=== PATIENT | male | born 1990 | race Caucasian/White ===

== ENCOUNTER → 2020-01-13 | Outpatient (CLI) | payer OTHER, SELFPAY | END | disposition home or self-care (01) | LOC: LABSPEC 15:43 | PROVIDERS: Referring Provider Otolaryngology Otolaryngology/Facial Plastic Surgery; Visit Provider Otolaryngology Otolaryngology/Facial Plastic Surgery | DX: J02.9 Acute pharyngitis, unspecified (principal) | CPT/HCPCS: 87070 ==

== ENCOUNTER 2020-03-11 11:37 | Emergency (ER) | payer OTHER, SELFPAY ==
[2020-03-11 11:38] VITALS: BP 167/119; PULSE 123; RESP 15; TEMP 36.3; O2SAT 100; BMI 41.3
[2020-03-11 11:40] VITALS: BP 167/119; PULSE 120; RESP 16; TEMP 36.3; O2SAT 100
--- NOTE | 2020-03-11 12:06 | ED.DCSUM_ITS ---
History of Present Illness Informant: Patient, Family Onset: Month(s) - 3 months Context: Gradual Onset Timing: Continuous Quality: sharp Location: throat Current Severity: Moderate Maximum Severity: Moderate Worsened by: eating/drinking Relieved by: nothing Associated Symptoms: sinus pain Prior similar symptoms: Yes Recent Illness/Hospitalization: No <Abdoul Desai - Last Filed: 03/11/20 12:59> <Edson Slater - Last Filed: 03/11/20 13:48> Chief Complaint: Sore Throat Past Medical History Prior records reviewed: Yes Past Medical History: None Surgical History: no surgical history Lives: With Family Smoking Status: Former smoker Alcohol: None Drugs: None <Abdoul Desai - Last Filed: 03/11/20 12:59> <Edson Slater - Last Filed: 03/11/20 13:48> - Allergies and Home Meds Allergies/Adverse Reactions: Allergies No Known Allergies Allergy (Verified 03/11/20 11:40) Primary Care Physician: Wyatt Benoit MD [STAFF PHYSICIAN] - Review of Systems All systems negative except as indicated General: Denies: Chills, Fever, Sweats Eyes: Denies: Visual changes - bilaterally, Diplopia ENT: Reports: Bilateral ear pain, Sore throat. Denies: Rhinorrhea Cardiovascular: Denies: Chest pain, Palpitations, Heart racing Respiratory: Denies: Dyspnea, Cough, Sputum, Dyspnea on exertion, Orthopnea, Paroxysmal nocturnal dyspnea Gastrointestinal: Denies: Abdominal pain, Nausea, Vomiting, Diarrhea, Constipation, Melena, Hematochezia Genitourinary: Denies: Dysuria, Hematuria, Frequency Musculoskeletal: Denies: Myalgias, Arthralgias, Neck pain, Back pain, Swelling, Extremity Pain Skin: Denies: Rash, Wounds Neurological: Denies: Headache, Weakness, Numbness <Abdoul Desai - Last Filed: 03/11/20 12:59> Physical Exam Vital Signs/Narrative: Vital Signs Temp Pulse Resp BP Pulse Ox 03/11/20 11:40 97.3 F L 120 H 16 167/119 H 100 03/11/20 11:38 97.3 F L 123 H 15 167/119 H 100 Inital Vital Signs reviewed: Yes General: Well nourished, Well developed, Obese, No Acute Distress Head: Normocephalic, Atraumatic. Negative for: Trauma Eyes: Perrl, EOMI ENT: Moist mucous membranes, TM's clear, Nasal congestion, Sinus tenderness Neck: Supple, Nontender, No lymphadenopathy, No JVD Cardiovascular: Regular rate, Regular rhythm, No murmurs Respiratory: No distress, CTA bilaterally, Chest nontender Abdomen: Soft, Nontender, Nondistended, Normal bowel sounds Back: Nontender, Normal Inspection. Negative for: CVA tenderness, Spinal tenderness Extremities: Nontender, No edema. Negative for: Tenderness, Edema Skin: Normal color, No rash Neurological: Alert, Oriented x3, Cranial nerves II-XII grossly intact, Normal Strength, Normal Sensation, Normal Gait Psychological: Normal affect, Normal Mood <Abdoul Desai - Last Filed: 03/11/20 12:59> Vital Signs/Narrative: Vital Signs Temp Pulse Resp BP Pulse Ox 03/11/20 11:40 97.3 F L 120 H 16 167/119 H 100 03/11/20 11:38 97.3 F L 123 H 15 167/119 H 100 <Edson Slater - Last Filed: 03/11/20 13:48> Diagnostic/Tx/Re-eval - Medical Decision Making Rapid strep is negative. Patient has no signs of meningitis he is well- appearing no sign of peritonsillar abscess voice is normal will be discharged home with Augmentin for sinus infection and he will follow-up with his primary care physician <Abdoul Desai - Last Filed: 03/11/20 12:59> - Medical Decision Making Attending note: I saw the patient independently. Patient presents with sore throat. Pain worse on the right. HEENT exam shows mildly erythematous and swollen uvula, otherwise unremarkable. Good range of motion. No abscess. Airway intact. Lungs clear. HEENT normal. Pharyngitis Patient has what sounds like sleep apnea. I believe he snores and this is irritating his uvula. Nothing to suggest angioedema, abscess or other infection, airway compromise. Strep was negative. Will treat with Decadron and antibiotics as he has had ongoing sinus symptoms. Follow-up with outpatient care. <Edson Slater - Last Filed: 03/11/20 13:48> ED Disposition <Abdoul Desai - Last Filed: 03/11/20 12:59> <Edson Slater - Last Filed: 03/11/20 13:48> - Plan for ED Patient: Disposition: Home or Assisted Living Diagnosis: Sinusitis Instructions: ED Sinusitis Antibiotic Treatment Prescriptions: Amox/Clavulanate Tablet [Augmentin Tablet] 875 mg PO Q12H #20 tab Prescription Printed Levocetirizine Dihydrochloride [Xyzal] 5 mg PO DAILY #30 tab Prescription Printed Referrals: Wyatt Benoit MD [STAFF PHYSICIAN] -
--- NOTE | 2020-03-11 13:17 | ED.RN ---
DISCHARGE INSTRUCTIONS GIVEN TO AND REVIEWED WITH PATIENT, PATIENT DENIES QUESTIONS OR CONCERNS AND VOICES UNDERSTANDING OF DISCHARGE INSTRUCTIONS. PT AMBULATES OUT OF ROOM WITHOUT DIFFICULTY.
== END 2020-03-11 13:17 | disposition home or self-care (01) ==
PROVIDERS: Emergency Provider Physician Assistant Medical
DX: J32.9 Chronic sinusitis, unspecified (principal); E66.9 Obesity, unspecified; Z68.41 Body mass index [BMI] 40.0-44.9, adult; Z87.891 Personal history of nicotine dependence
CPT/HCPCS: 87077; 87880; 99281

== ENCOUNTER 2020-09-09 07:27 | Emergency (ER) | payer OTHER, SELFPAY ==
[2020-09-09 07:28] VITALS: BP 157/109; PULSE 76; RESP 16; TEMP 36.2; O2SAT 100; BMI 40.1
--- NOTE | 2020-09-09 07:41 | ED.VIS.GI ---
History of Present Illness Chief Complaint: Abd Pain Informant: Patient, Significant Other - Abdominal Pain/Flank Pain Onset: Today, Hours Context: Sudden Onset Timing: Continuous Quality: Aching, Cramping Location: Epigastric, LUQ Current Severity: Moderate Maximum Severity: Severe Worsened by: Not Worsened By: Car ride, Food, Movement Relieved by: Antacids - Improved slightly - Nausea/Vomiting/Emesis GI Symptom: Nausea, Vomiting, - - Onset 0500 Onset: Hours Quality: Negative for: Nonbilious, Blood streaks, Coffee ground, Hematemesis Severity: Moderate - Diarrhea/Melena/Hematochezia GI Symptom: Diarrhea. Negative for: Melena, Hematochezia Onset: Hours Stool Quality: Loose, Watery. Negative for: Black, Maroon, HARINDER per rectum Severity: Severe Associated Symptoms: Negative for: Dysuria, Frequency, Hematuria, Urgency Narrative: Patient is a 30-year-old male with history of hypertension on lisinopril who presents with epigastric left upper quadrant abdominal pain that started prior to 0500. This was followed by one episode of vomiting. He did take Pepto-Bismol and Maalox with no improvement. He did have one episode of vomiting and did not note blood or coffee grounds. He states there is a small area that was dark. He reports profuse watery diarrhea. He denies any ill contacts. He states he had similar episode 1 month ago. Etiology was unknown. He did not seek medical attention. He denies fever, chills night sweats. He denies headache ocular, visual auditory symptoms. Denies neck pain or neck stiffness. He does report nasal congestion that started several days ago. He denies chest discomfort. He denies shortness of breath. He denies rash. He does report lightheadedness with standing. He states his sister is status post cholecystectomy. He is not aware of any other family members with biliary disease. Prior similar symptoms: Yes - 1 month ago Recent Illness/Hospitalization: No Past Medical History - Allergies and Home Meds Allergies/Adverse Reactions: Allergies No Known Allergies Allergy (Verified 03/11/20 11:40) Primary Care Physician: Deborah Lester PA [NON-STAFF] - Prior records reviewed: Yes - Hypertension Surgical History: no surgical history Lives: Spouse/ Significant Other, With Family Smoking Status: Never smoker Alcohol: Rare Drugs: None Review of Systems General: Reports: Malaise. Denies: Chills, Fever, Subjective Eyes: Denies: Visual changes - bilaterally, Blurred Vision - bilaterally ENT: Reports: Rhinorrhea. Denies: Bilateral ear pain, Sore throat Cardiovascular: Denies: Chest pain, Palpitations Respiratory: Denies: Dyspnea, Cough, Sputum, Dyspnea on exertion Gastrointestinal: Reports: Abdominal pain, Nausea, Vomiting, Diarrhea. Denies: Melena, Hematochezia Genitourinary: Denies: Dysuria, Hematuria, Frequency Musculoskeletal: Denies: Myalgias, Arthralgias, Neck pain, Back pain, Swelling, Extremity Pain, -, - Skin: Denies: Rash, Wounds Neurological: Denies: Headache Endocrine: Denies: Polyuria, Polydipsia, Heat intolerance Allergy: Denies: Uticaria Physical Exam Vital Signs/Narrative: Vital Signs Temp Pulse Resp BP Pulse Ox 09/09/20 07:28 97.1 F L 76 16 157/109 H 100 Inital Vital Signs reviewed: Yes General: Well nourished, Well developed, Acute Distress - Patient does not appear well. He appears pale. He appears uncomfortable. He does admit to abdominal distention. Head: Normocephalic, Atraumatic Eyes: Perrl, EOMI. Negative for: Pale conjunctiva, Scleral icterus ENT: No rhinorrhea, Dry mucous membranes. Negative for: Moist mucous membranes Neck: Supple, Nontender, No lymphadenopathy, No JVD Cardiovascular: Regular rate, Regular rhythm, No murmurs, Normal S1, Normal S2 Respiratory: No distress, CTA bilaterally, Chest nontender Abdomen: Soft, No masses, Tender, Guarding, Hypoactive bowel sounds. Negative for: Nontender, Nondistended, Normal bowel sounds, Rebound tenderness, Hepatomegaly, Splenomegaly, Mass, Pulsatile mass, Glover's sign Back: Nontender Extremities: Nontender, No edema. Negative for: Tenderness Skin: No rash, No Trauma, Pallor. Negative for: Normal color, Cyanosis, Diaphoresis, Jaundice Neurological: Alert, Oriented x3, Cranial nerves II-XII grossly intact, Normal Strength, Normal Sensation, Normal Gait Psychological: Normal affect Diagnostic/Tx/Re-eval Impressions Abdomen/Pelvis CT 09/09/20 09:23 IMPRESSION: A few air-fluid levels within the colon may represent a pattern of possible enterocolitis. No obstruction. No appendicitis. No hydronephrosis. Electronically Signed: Emily Schuster MD at 12:04 EDT Tel , Service support , 09/09/20 09:23 Abdomen/Pelvis WITH Contrast [CT] Stat Laboratory Results 09/09/20 09/09/20 07:45 07:45 WBC 9.5 RBC 5.32 Hgb 15.4 Hct 46.0 MCV 86.5 MCH 28.9 MCHC 33.5 RDW Std Deviation 40.4 RDW Coeff of Meño 13.0 Plt Count 400 MPV 8.9 Immature Gran % (Auto) 0.500 Neut % (Auto) 65.9 Lymph % (Auto) 25.3 [place] % (Auto) 7.3 Eos % (Auto) 0.2 Baso % (Auto) 0.8 Absolute Neuts (auto) 6.2 Absolute Lymphs (auto) 2.40 Nucleated RBC % 0 Sodium 133 L Potassium 4.4 Chloride 100 Carbon Dioxide 24.0 Anion Gap 9 BUN 15 Creatinine 1.00 Estim Creat Clear Calc 107.03 Est GFR (MDRD) Af Amer 112 Est GFR (MDRD) Non-Af 92 BUN/Creatinine Ratio 15.0 Glucose 168 H Calcium 9.3 Total Bilirubin 0.60 AST 14 L ALT 63 H Alkaline Phosphatase 67 Total Protein 7.9 Albumin 3.8 Globulin 4.1 Albumin/Globulin Ratio 0.9 Lipase 135 Blood work was marked for slight elevation in glucose. CAT scan is unremarkable. Patient was made aware of his results. He no longer appears pale. He still feels nauseous. Will order Bentyl at this time and reevaluate. I was informed that 1335 patient states his nausea improved with Bentyl. Still having discomfort. Will discharge to home with appropriate medication and home-going instructions. - Medical Decision Making Patient presents with nausea, vomiting diarrhea which may represent a viral illness, biliary disease, doubt food poisoning since no one else is ill and does not describe rancid 10 E. 2 food consumed last evening. Because he is 29 years old with history of hypertension on MADHAVI inhibitor BMP was obtained to assess renal function and electrolytes. CBC to assess white count as well as hepatic panel and lipase to evaluate for biliary disease and or pancreatitis. Patient was reassessed at 0822. He still appears pale and does not appear well. He states he is no better. He was informed of his laboratory results. A liter of normal saline was ordered an additional dose of Zofran and morphine was ordered. Will reevaluate if he still having significant discomfort with no improvement will obtain CT of the abdomen and pelvis. Patient was reassessed at 0920. He still appears uncomfortable and pale with tenderness in the right and left upper quadrant. CT of the abdomen pelvis with p.o. and IV contrast was ordered to evaluate for colitis versus inflammatory bowel disorder versus other cause. I was informed patient began to vomit. This was prior to the administration of p.o. contrast. A verbal order was given for 5 mg of Reglan IV push. Patient was reassessed at 1100. He still appears very uncomfortable. He is pacing. 0.5 mg of Dilaudid was ordered. ED Disposition - Plan for ED Patient: Disposition: Home or Assisted Living Diagnosis: Abdominal pain, vomiting, and diarrhea, Mild dehydration Instructions: ED Vomiting and Diarrhea ... Prescriptions: Dicyclomine HCl [Bentyl] 20 mg PO TIDAC #10 capsule Transmission Status: Pending to [id number] Hydrocodone Bitart/Apap 5-325 [[place] 5MG-325MG] 1 tablet PO Q6H PRN PRN 3 Days #10 tablet PRN Reason: Pain Transmission Status: Received by [id number] Ondansetron [Zofran Odt] 4 mg PO Q8H PRN PRN #10 tablet PRN Reason: Nausea Transmission Status: Pending to [id number] Referrals: Deborah Lester PA [NON-STAFF] - 1-2 Days if not improving
[2020-09-09] MEDS: Morphine 4 MG/ML Syringe IV ×2 (07:46→08:30)
[2020-09-09] MEDS: Ondansetron 4 MG/2 ML Vial IV ×2 (07:47→08:30)
[2020-09-09 07:55] LABS: Absolute Neutrophil Count 6.2 X10^3/uL (2.0-7.7); Basophil# 0.08 X10^3/uL; Basophil% 0.8 % (0-1); Eosinophil# 0.02 X10^3/uL; Eosinophils% 0.2 % (0-5); Hemoglobin 15.4 g/dL (13.0-16.5); Lymphocyte % 25.3 % (19-41); Mean Corp Hgb Conc 33.5 g/dL (32-36); Mean Corpuscular Hgb 28.9 pg (27.0-32.0); Mean Corpuscular Volume 86.5 fL (80-94); Mean Platelet Vol. 8.9 fl (6.2-12.0); Monocyte# 0.69 X10^3/uL; Monocyte% 7.3 % (0-10); NRBC Flagged by Analyzer 0 % (0-5); Neutrophil # 6.24 X10^3/uL (2.7-7.7); Neutrophil % 65.9 % (47-70); Platelet Count 400 K/mm3 (150-450); RBC Distribution Width SD 40.4 fl (35.1-43.9); Red Blood Count 5.32 M/mm3 (4.6-6.2); White Blood Count 9.5 K/mm3 (4.4-11.0)
[2020-09-09 08:10] LABS: ALB/GLOB Ratio 0.9 RATIO (0.9-2.4); AST(SGOT) 14 U/L (15-37); Alanine Aminotransfer ALT/SGPT 63 U/L (16-61); Albumin, Serum 3.8 g/dL (3.2-5.0); Alkaline Phosphatase 67 U/L (45-117); Anion Gap 9 (5-15); BUN 15 mg/dL (7-18); Calcium,Total 9.3 mg/dL (8.5-10.1); Chloride 100 mmol/L (98-107); EST Glomerular Filtration Rate 92 mL/min (>60); Est Glom Filt Rate - Afr Amer 112 mL/min (>60); Estimated Creatinine Clearance 107.03 ml/min; Globulin 4.1 g/dL (2.2-4.2); Glucose 168 mg/dL (74-106); Lipase 135 U/L (73-393); Potassium 4.4 mmol/L (3.5-5.1); Protein, Total 7.9 g/dL (6.4-8.2); Sodium Level 133 mmol/L (136-145)
[2020-09-09 08:30] VITALS: BP 154/94; PULSE 64; RESP 16
[2020-09-09] MEDS: 0.9% Normal Saline 1,000 ML 1000 ML IV (08:30)
--- NOTE | 2020-09-09 09:23 | CT_ITS ---
STUDY: CT ABDOMEN AND PELVIS WITH CONTRAST REASON FOR EXAM: Male, 30 years old. Bilateral upper abdominal pain with N/V/D -- IV PO Contrast RADIATION DOSAGE (If Supplied By Facility): CTDIvol = ( 15.41 ) mGy, DLP = ( 1314.15 ) mGycm TECHNIQUE: Transaxial images were obtained from the dome of the diaphragm to the symphysis pubis with oral contrast. Oral ; IV Gastrografin and 100mL Isovue-300 was administered. Sagittal and coronal images were reconstructed. Individualized dose optimization techniques were used for this CT. COMPARISON: None. FINDINGS: The visualized lung bases are unremarkable. The visualized portions of the heart are within normal limits. There is decreased attenuation of the liver consistent with steatosis. Normal gallbladder and extrahepatic biliary system. Normal spleen. Normal pancreas. Normal bilateral adrenal glands. Normal right kidney. Normal left kidney. Normal visualized stomach. There is contrast in normal-caliber loops of small bowel. There. Air-fluid levels within the mostly decompressed colon. There are a few diverticula present without visualized diverticulitis. The appendix is visualized and appears normal. Normal abdominal aorta. Normal inferior vena cava. Normal retroperitoneum. Normal urinary bladder. Normal visualized prostate gland. There is a small umbilical hernia containing fat. There are diffuse degenerative changes of the visualized thoracolumbar junction. 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 There is a Schmorl''s node at the level of L4. CT/Abdomen/Pelvis WITH Contrast IMPRESSION: A few air-fluid levels within the colon may represent a pattern of possible enterocolitis. No obstruction. No appendicitis. No hydronephrosis. Electronically Signed: Emily Schuster MD at 12:04 EDT Tel , Service support ,
[2020-09-09] MEDS: Metoclopramide 10 MG/2 ML Vial 5 MG IV (09:35)
[2020-09-09 11:00] VITALS: BP 149/75; PULSE 65; RESP 16
[2020-09-09] MEDS: HYDROmorphone 0.5 MG/0.5 ML SYRINGE IV (11:14)
[2020-09-09] MEDS: Dicyclomine 10 MG Capsule 20 MG PO (12:38)
[2020-09-09 13:00] VITALS: BP 140/85; PULSE 66; RESP 16; O2SAT 97
[2020-09-09] MEDS: Famotidine 200 MG/20 ML MDV 20 MG in 0.9% Normal Saline (Pres. free 8 ML 300 MG IV (14:07)
[2020-09-09] MEDS: Mag Hydrox/Al Hydrox/Simeth 30 ML UDC PO (14:07)
--- NOTE | 2020-09-09 15:00 | ED.VISSUMM ---
- ER Visit Summary Date of Service: 09/09/20 Chief Complaint: [] History of Present Illness: The patient is a 30 M [] Physical Examination: [] Test Results: [] Emergency Department Course and Treatment: [] Treatment Plan: [] Disposition: [] Impression: [] This note was generated with [employer] dictation software. It may contain incorrect words, spelling, and punctuation that were not noted in review of the chart prior to signing ED Disposition - Plan for ED Patient: Disposition: Home or Assisted Living Diagnosis: Abdominal pain, vomiting, and diarrhea, Mild dehydration Instructions: ED Vomiting and Diarrhea ... Prescriptions: Dicyclomine HCl [Bentyl] 20 mg PO TIDAC #10 capsule Prescription Printed Hydrocodone Bitart/Apap 5-325 [[place] 5MG-325MG] 1 tablet PO Q6H PRN PRN 3 Days #10 tab PRN Reason: Pain Prescription Printed Ondansetron [Zofran Odt] 4 mg PO Q8H PRN PRN #10 tablet PRN Reason: Nausea Prescription Printed Referrals: Deborah Lester PA [NON-STAFF] - 1-2 Days if not improving
[2020-09-09 15:05] VITALS: BP 156/91; PULSE 98; RESP 16; O2SAT 100
[2020-09-13 17:17] LABS: C1 Esterase Inhibitor, Quant 22 mg/dL (21-39)
== END 2020-09-09 15:07 | disposition home or self-care (01) ==
PROVIDERS: Emergency Provider Emergency Medicine
DX: R10.13 Epigastric pain (principal); R10.11 Right upper quadrant pain; R10.12 Left upper quadrant pain; R11.2 Nausea with vomiting, unspecified; R19.7 Diarrhea, unspecified; E86.0 Dehydration; I10 Essential (primary) hypertension; Z79.899 Other long term (current) drug therapy; Z83.79 Family history of other diseases of the digestive system
CPT/HCPCS: 74177; 80053; 83690; 85025; 86160; 86161; 96361; 96374; 96375; 96376; 99284; J7030; Q9967; A4216; J2405; J3490

== ENCOUNTER 2020-11-02 14:07 | Emergency (ER) | payer OTHER, SELFPAY ==
[2020-11-02 14:07] VITALS: BP 143/82; PULSE 83; RESP 14; TEMP 36.9; O2SAT 95; BMI 37.4
--- NOTE | 2020-11-02 14:20 | ED.VIS.GI ---
HPI HPI - GI History of Present Illness Chief Complaint: Nausea/Vomiting Informant: patient Abdominal Pain/Flank Pain Onset: Yesterday Context: Sudden Onset Timing: Continuous Quality: Burning Location: Epigastric, RUQ and LUQ Maximum Severity: 9/10 Worsened by: - (Lying and sitting) Relieved by: - (Standing) Nausea/Vomiting/Emesis GI Symptom: Positive for Nausea and Vomiting Onset: Yesterday Quality: Negative for Coffee ground and Hematemesis Episodes: 12 Diarrhea/Melena/Hematochezia GI Symptom: Negative for Diarrhea, Melena and Hematochezia Associated Symptoms Associated Symptoms: Negative for Dysuria and Hematuria Narrative Narrative: Patient presents with nausea and vomiting that began yesterday. Patient states he has had a similar episode approximately 2 months ago and was seen here in the emergency department at that time. Patient states that they never found what was wrong. Patient never followed up with his primary care physician after this. Patient denies any hematemesis or coffee-ground emesis. Patient states his emesis is stomach contents. Patient describes his pain as burning. Patient states pain is over the epigastric area and upper abdomen. Patient denies any radiation of the pain. Patient denies any diarrhea, melena, or hematochezia. Patient denies any dysuria or hematuria. Patient also admits to some pain in his right lower chest. Patient states he felt like he pulled something while he was vomiting one time. [facility] Medical History (Updated 11/02/20 @ 19:[address] Cuco Sanabria DO) Hypertension Home Medications lisinopril 40 mg PO DAILY 09/09/20 [History Last Taken Unknown] omeprazole 20 mg PO DAILY #30 capsule 11/02/20 [Rx Last Taken Unknown] Allergy/AdvReac Type Severity Reaction Status Date / Time No Known Allergies Allergy Verified 11/02/20 14:09 no surgical history Social History Smoking Status: Never smoker ROS ROS ED Constitutional Constitutional ED: Denies chills or fever(s) Eyes Eyes: Denies blurry vision or change in vision ENT ENT ED: Denies rhinorrhea or sore throat Cardiovascular Cardiovascular: Reports chest pain; Denies palpitations Respiratory/Chest Respiratory/Chest: Denies cough or dyspnea Gastrointestinal Gastrointestinal: Reports abdominal pain, nausea and vomiting; Denies diarrhea Genitourinary Genitourinary ED: Denies dysuria or hematuria Musculoskeletal Musculoskeletal: Denies back pain or neck pain Integumentary Denies abscess or rash Neurologic Neurologic: Denies headache(s) or weakness Allergic/Immunologic Allergic/Immunologic ED: Denies mouth swelling or urticaria EXAM Physical Exam Const Vital Signs: 11/02/20 14:07 11/02/20 16:07 11/02/20 18:00 Temperature 98.4 F Temperature Source Temporal Pulse Rate 83 69 71 Respiratory Rate 14 18 18 Blood Pressure 143/82 H 147/88 H 145/82 H Blood Pressure Mean 102 107 103 Pulse Ox 95 98 98 Oxygen Delivery Method Room Air Room Air Room Air Positive well nourished, well developed and obese General Appearance ED: well developed Nutritional Appearance: obese HEENT Reports moist mucous membranes Neck supple and no JVD Resp normal respiratory effort and clear to auscultation bilaterally Cardio regular rate and regular rhythm GI non-distended Auscultation: normoactive bowel sounds Palpation: soft and tender epigastric; Negative for guarding or rebound tenderness present Extremity full ROM General Extremety ED: Negative for edema General Extremity: Negative for edema Neuro CN's II-XII intact bilaterally, moves all extremities and no sensory deficits noted Sensorium / Orientation: alert, oriented to person, oriented to place and oriented to time Psych mental status grossly normal MDM MDM MDM Narrative Medical decision making narrative: Patient was given morphine and Zofran initially. CBC and comprehensive metabolic profile were within normal limits. Lipase was normal. Patient states he has had no improvement in his pain. Patient was given a repeat dose of morphine and Zofran. On reevaluation, patient states he feels worse now than when he came in. CT scan of the abdomen pelvis was ordered. Patient was given a dose of Bentyl. CT scan does not show any acute intra-abdominal process. Patient was requesting a GI cocktail. This was ordered. Patient was also given a repeat dose of morphine. Patient was given a prescription for Prilosec. Patient was instructed to follow-up with his primary care physician in 3 to 5 days. Patient understood and was agreeable with the plan. All questions were answered. Lab Data Attestation: I reviewed the patient's lab results. Labs: Laboratory Results - last 24 hr 11/02/20 11/02/20 14:51 14:51 WBC 10.7 RBC 5.42 Hgb 15.7 Hct 46.8 MCV 86.3 MCH 29.0 MCHC 33.5 RDW Std Deviation 40.0 RDW Coeff of Meño 12.9 Plt Count 412 MPV 8.9 Immature Gran % (Auto) 0.600 Neut % (Auto) 67.9 Lymph % (Auto) 22.1 [place] % (Auto) 8.5 Eos % (Auto) 0.2 Baso % (Auto) 0.7 Absolute Neuts (auto) 7.3 Absolute Lymphs (auto) 2.36 Nucleated RBC % 0 Sodium 139 Potassium 4.0 Chloride 107 Carbon Dioxide 24.0 Anion Gap 8 BUN 12 Creatinine 1.11 Estim Creat Clear Calc 96.43 Est GFR (MDRD) Af Amer 99 Est GFR (MDRD) Non-Af 82 BUN/Creatinine Ratio 10.8 Glucose 138 H Calcium 10.0 Total Bilirubin 0.60 AST 14 L ALT 47 Alkaline Phosphatase 69 Total Protein 8.3 H Albumin 3.8 Globulin 4.5 H Albumin/Globulin Ratio 0.8 L Lipase 121 Radiography Diagnostic Testing: Radiology Impression Abdomen/Pelvis CT 11/02/20 17:58 IMPRESSION: No definite acute or significant abnormality seen. Electronically Signed: Hany Hernandez MD at 19:00 EDT , Service support , Discharge Plan Triage Chief Complaint: Nausea/Vomiting ED Provider: Cuco Sanabria Dx/Rx/DC Orders Clinical Impression: Abdominal pain of unknown etiology Instructions: ED Gastritis (Adult), ED Epigastric Pain (Uncertain Cause), ED Unknown Causes of Abdominal ... Prescriptions: New omeprazole [omeprazole] 20 MG capsule 20 mg PO DAILY Qty: 30 RF: 0 No Action lisinopril 40 MG tablet 40 mg PO DAILY RF: 0 Primary Care Provider: Care Physician,No Primary Referrals: Abbie Chavez MD [STAFF PHYSICIAN] - 3-5 Days Care Physician,No Primary [Primary Care Provider] - Disposition Disposition: Home, self care
[2020-11-02] MEDS: 0.9% Normal Saline 1,000 ML 1000 ML IV (14:50)
[2020-11-02] MEDS: Ondansetron 4 MG/2 ML Vial IV ×2 (14:50→16:20)
[2020-11-02 15:02] LABS: Absolute Lymphocyte Count 2.36 X10^3/uL (0.83-4.51); Absolute Neutrophil Count 7.3 X10^3/uL (2.0-7.7); Basophil# 0.08 X10^3/uL; Basophil% 0.7 % (0-1); Eosinophil# 0.02 X10^3/uL; Eosinophils% 0.2 % (0-5); Hematocrit 46.8 % (40-54); Hemoglobin 15.7 g/dL (13.0-16.5); Lymphocyte # 2.36 X10^3/ul (0.83-4.51); Lymphocyte % 22.1 % (19-41); Mean Corp Hgb Conc 33.5 g/dL (32-36); Mean Corpuscular Volume 86.3 fL (80-94); Mean Platelet Vol. 8.9 fl (6.2-12.0); Monocyte# 0.91 X10^3/uL; Monocyte% 8.5 % (0-10); NRBC Flagged by Analyzer 0 % (0-5); Neutrophil # 7.25 X10^3/uL (2.7-7.7); Neutrophil % 67.9 % (47-70); Platelet Count 412 K/mm3 (150-450); RBC Distribution Width CV 12.9 % (11.6-14.6); Red Blood Count 5.42 M/mm3 (4.6-6.2); White Blood Count 10.7 K/mm3 (4.4-11.0)
[2020-11-02] MEDS: Morphine 4 MG/ML Syringe IV ×2 (15:09→16:20)
[2020-11-02 15:15] LABS: ALB/GLOB Ratio 0.8 RATIO (0.9-2.4); AST(SGOT) 14 U/L (15-37); Alanine Aminotransfer ALT/SGPT 47 U/L (16-61); Albumin, Serum 3.8 g/dL (3.2-5.0); Alkaline Phosphatase 69 U/L (45-117); Anion Gap 8 (5-15); BUN 12 mg/dL (7-18); BUN/Creat Ratio 10.8 RATIO (10-20); Chloride 107 mmol/L (98-107); Creatinine, Serum 1.11 mg/dL (0.70-1.30); EST Glomerular Filtration Rate 82 mL/min (>60); Est Glom Filt Rate - Afr Amer 99 mL/min (>60); Estimated Creatinine Clearance 96.43 ml/min; Globulin 4.5 g/dL (2.2-4.2); Glucose 138 mg/dL (74-106); Lipase 121 U/L (73-393); Protein, Total 8.3 g/dL (6.4-8.2); Sodium Level 139 mmol/L (136-145)
[2020-11-02 16:07] VITALS: BP 147/88; PULSE 69; RESP 18; O2SAT 98
--- NOTE | 2020-11-02 17:58 | CT_ITS ---
STUDY: CT ABDOMEN AND PELVIS WITHOUT CONTRAST REASON FOR EXAM: Male, 30 years old. Pain RADIATION DOSAGE (If Supplied By Facility): CTDIvol = ( 22.64 ) mGy, DLP = ( 1227.37 ) mGycm TECHNIQUE: Transaxial images were obtained from the dome of the diaphragm to the symphysis pubis without oral contrast, and without intravenous contrast. Sagittal and coronal images were reconstructed. Individualized dose optimization techniques were used for this CT. COMPARISON: 09/09/2020. FINDINGS: The visualized lung bases are unremarkable. The visualized portions of the heart are within normal limits. Normal liver. Normal gallbladder and extrahepatic biliary system. Normal spleen. Normal pancreas. Normal bilateral adrenal glands. Normal right kidney. Normal left kidney. No definite renal or ureteral stones are seen. There is no hydronephrosis on either side. Evaluation of the GI tract is limited by absence of oral contrast. Cannot exclude stomach wall thickening. No dilated loops of bowel or evidence for obstruction. Cannot exclude segmental thickening of the cross of the small or large bowel. Cannot exclude enteritis or colitis. Moderate diffuse fecal retention. Appendix within normal limits. Normal abdominal aorta. Normal inferior vena cava. Normal retroperitoneum. Normal urinary bladder. Normal abdominal wall. Normal osseous structures. CT/Abdomen/Pelvis without Cont IMPRESSION: No definite acute or significant abnormality seen. Electronically Signed: Hany Hernandez MD at 19:00 EDT , Service support ,
[2020-11-02 18:00] VITALS: BP 145/82; PULSE 71; RESP 18; O2SAT 98
[2020-11-02] MEDS: Dicyclomine 20 MG/2 ML Vial IM (18:08)
[2020-11-02] MEDS: Morphine 2 MG/ML Syringe IV (19:20)
[2020-11-02] MEDS: Mag Hydrox/Al Hydrox/Simeth 30 ML UDC PO (19:20)
== END 2020-11-02 19:27 | disposition home or self-care (01) ==
PROVIDERS: Emergency Provider Emergency Medicine
DX: R10.9 Unspecified abdominal pain (principal); I10 Essential (primary) hypertension; Z79.899 Other long term (current) drug therapy
CPT/HCPCS: 74176; 80053; 83690; 85025; 96372; 96374; 96375; 96376; 99284; J7030; A4216; J2405

== ENCOUNTER 2020-12-21 09:17 | Emergency (ER) | payer SELFPAY ==
[2020-12-21 09:18] VITALS: BP 150/103; PULSE 71; RESP 18; TEMP 35.9; O2SAT 97; BMI 37.9
--- NOTE | 2020-12-21 09:42 | ED.VIS.GI ---
HPI HPI - GI History of Present Illness Chief Complaint: Abd Pain Informant: patient Narrative Narrative: Patient presents with abdominal pain nausea and vomiting. The pain is generally epigastric and left upper quadrant. This is his third episode. He states it seems to occur about every 2 months. In between he is feeling pretty good. He is on an [id number] antacid pill but he does not know what it is. He states he is taking it every day. He does get some dyspepsia and acid taste in his throat occasionally. He states over the last week he has had recurrence of his symptoms where he gets some discomfort or pressure in the left upper quadrant. But it is now progressed to the point of nausea and vomiting since about 4 this morning. He cannot keep anything down. No blood. No change in bowel habits. He has no history of any abdominal surgery. He does not drink alcohol at all. He denies any drugs including no marijuana. He has never followed up from his prior visits. He has not seen private physician or metal plater. He states there is nothing consistently that gets it better or brings it on. [facility] Medical History Hypertension Home Medications lisinopril 40 mg PO DAILY 09/09/20 [History Last Taken Unknown] dicyclomine 20 mg PO TID #14 tab 12/21/20 [Rx Last Taken Unknown] esomeprazole magnesium [Nexium] 20 mg PO DAILY #30 cap 12/21/20 [Rx Last Taken Unknown] hydrocodone-acetaminophen 1 tab PO Q6H PRN 3 Days #10 tab 12/21/20 [Rx Last Taken Unknown] ondansetron HCl [Zofran] 4 mg PO Q8H PRN #14 tab 12/21/20 [Rx Last Taken Unknown] sucralfate [Carafate] 1 g PO Q6H #30 tab 12/21/20 [Rx Last Taken Unknown] Allergy/AdvReac Type Severity Reaction Status Date / Time No Known Allergies Allergy Verified 12/21/20 09:18 Social History Smoking Status: Never smoker ROS ROS ED Constitutional Constitutional ED: Denies chills or fever(s) ENT ENT ED: Denies rhinorrhea or sore throat Cardiovascular Cardiovascular: Denies chest pain, palpitations or racing heartbeat Respiratory/Chest Respiratory/Chest: Denies cough or dyspnea Gastrointestinal Gastrointestinal: Reports abdominal pain, nausea and vomiting; Denies constipation, diarrhea or melena Genitourinary Genitourinary ED: Denies dysuria or hematuria Musculoskeletal Musculoskeletal: Denies back pain Integumentary Denies rash Neurologic Neurologic: Denies paresthesias or weakness Psychiatric Psychiatric: Denies anxiety or depression Endocrine Endocrinology: Denies polydipsia or polyuria Hematologic/Lymphatic Hematologic/Lymphatic: Denies easy bruising EXAM Physical Exam Const Vital Signs: 12/21/20 09:18 12/21/20 13:00 12/21/20 13:47 Temperature 96.7 F L Temperature Source Temporal Pulse Rate 71 77 72 Respiratory Rate 18 16 15 Blood Pressure 150/103 H 162/94 H 118/64 Blood Pressure Mean 118 116 Pulse Ox 97 97 96 Oxygen Delivery Method Room Air Room Air Positive well nourished and well developed General Appearance ED: well developed and NAD HEENT Reports dry mucous membranes HEENT Narrative: Right mucous membranes. normocephalic Mouth ED: Yes dry mucous membranes Mouth: dry mucous membranes Eyes General Eye ED: Negative for pale conjunctiva or scleral icterus Resp normal respiratory effort and clear to auscultation bilaterally Auscultation: Negative for rales, rhonchi or wheezes Cardio regular rate, regular rhythm and no murmurs GI non-distended and no masses GI Narrative: Abdomen has normal bowel sounds. He has some mild epigastric and left upper quadrant tenderness. No rebound no guarding. No mass. Negative Glover sign. Auscultation: normoactive bowel sounds Palpation: soft Back/Spine no CVA tenderness Neuro Sensorium / Orientation: alert and oriented to person Psych mental status grossly normal Skin General Skin Exam: Negative for jaundice Lesions: no lesions Rashes: no rashes MDM MDM MDM Narrative Medical decision making narrative: Patient's blood work did show a mild elevation of his white count. This can certainly be a nonspecific finding but did contribute to her decision to add scanning to his abdomen. Lactate was minimally elevated. He has been vomiting quite a bit. LFTs and electrolytes are not showing any marked abnormalities. Glucose is slightly elevated. However his anion gap and bicarb are normal. Urine normal. I found out that the patient is taking quite a bit of Motrin. He is taking this to relieve the pain. My suspicion is that this might be the medicine he is taking for his stomach. However, I think this is a heavy and significant contributor to his symptoms. He needs to stop all anti-inflammatories. I will give him another dose of meds for pain here. I did an online prescribing report. His only narcotics are from a prior visit here. I will also add Bentyl, PPI and Carafate. [place] diet. He needs to follow-up. I will give him the name of a private physician. I will also refer him to somebody who could consider doing a endoscopy. Lab Data Attestation: I reviewed the patient's lab results. Labs: Laboratory Results - last 24 hr 12/21/20 12/21/20 12/21/20 09:34 09:34 09:50 WBC 12.9 H RBC 5.62 Hgb 16.3 Hct 47.9 MCV 85.2 MCH 29.0 MCHC 34.0 RDW Std Deviation 38.5 RDW Coeff of Meño 12.5 Plt Count 445 MPV 9.1 Immature Gran % (Auto) 0.700 Neut % (Auto) 75.5 H Lymph % (Auto) 17.1 L [place] % (Auto) 5.7 Eos % (Auto) 0.2 Baso % (Auto) 0.8 Absolute Neuts (auto) 9.8 H Absolute Lymphs (auto) 2.21 Nucleated RBC % 0 Sodium 139 Potassium 4.1 Chloride 106 Carbon Dioxide 21.0 Anion Gap 12 BUN 13 Creatinine 1.16 Estim Creat Clear Calc 92.27 Est GFR (MDRD) Af Amer 94 Est GFR (MDRD) Non-Af 78 BUN/Creatinine Ratio 11.2 Glucose 175 H Lactic Acid 2.1 H* Calcium 9.6 Total Bilirubin 0.50 AST 12 L ALT 46 Alkaline Phosphatase 70 Total Protein 8.5 H Albumin 3.8 Globulin 4.7 H Albumin/Globulin Ratio 0.8 L Lipase 116 Urine Color Urine Clarity Urine pH Ur Specific [place] Urine Protein Urine Glucose (UA) Urine Ketones Urine Occult Blood Urine Nitrite Urine Bilirubin Urine Urobilinogen Ur Leukocyte Esterase Urine RBC Urine WBC Ur Squamous Epith Cells Urine Bacteria Urine Mucus 12/21/20 11:10 WBC RBC Hgb Hct MCV MCH MCHC RDW Std Deviation RDW Coeff of Meño Plt Count MPV Immature Gran % (Auto) Neut % (Auto) Lymph % (Auto) [place] % (Auto) Eos % (Auto) Baso % (Auto) Absolute Neuts (auto) Absolute Lymphs (auto) Nucleated RBC % Sodium Potassium Chloride Carbon Dioxide Anion Gap BUN Creatinine Estim Creat Clear Calc Est GFR (MDRD) Af Amer Est GFR (MDRD) Non-Af BUN/Creatinine Ratio Glucose Lactic Acid Calcium Total Bilirubin AST ALT Alkaline Phosphatase Total Protein Albumin Globulin Albumin/Globulin Ratio Lipase Urine Color Yellow Urine Clarity Clear Urine pH 6.5 Ur Specific [place] 1.020 Urine Protein 30 H Urine Glucose (UA) Normal Urine Ketones 15 H Urine Occult Blood 10 H Urine Nitrite Negative Urine Bilirubin Negative Urine Urobilinogen Normal Ur Leukocyte Esterase Negative Urine RBC 0 SEEN Urine WBC 0 SEEN Ur Squamous Epith Cells 0 SEEN Urine Bacteria 0 SEEN Urine Mucus 0 SEEN Radiography Diagnostic Testing: Radiology Impression Abdomen/Pelvis CT 12/21/20 11:27 IMPRESSION: Bilateral spondylitic defects are noted of L5 with no evidence of spondylolisthesis. Otherwise the CT scan of the abdomen and pelvis is normal. Electronically Signed: Prudencio Yancey DO at 12:10 EDT Tel , Service support , Discharge Plan Triage Chief Complaint: Abd Pain ED Provider: Dennis Isabel Dx/Rx/DC Orders Clinical Impression: Abdominal pain of unknown etiology Instructions: Abdominal Pain, ED PEPTIC ULCER vs GASTRITIS Prescriptions: New sucralfate [Carafate] 1 gram tablet 1 g PO Q6H Qty: 30 RF: 0 dicyclomine 20 mg tablet 20 mg PO TID Qty: 14 RF: 0 esomeprazole magnesium [Nexium] 20 mg capsule,delayed release(DR/EC) 20 mg PO DAILY Qty: 30 RF: 0 hydrocodone-acetaminophen 5-325 mg tablet 1 tab PO Q6H PRN (Reason: pain) 3 Days Qty: 10 RF: 0 ondansetron HCl [Zofran] 4 mg tablet 4 mg PO Q8H PRN (Reason: nausea and vomiting) Qty: 14 RF: 0 No Action lisinopril 40 MG tablet 40 mg PO DAILY RF: 0 Primary Care Provider: Care Physician,No Primary Referrals: Larissa Blankenship MD [STAFF PHYSICIAN] - 2 Days Kelsey Palma MD [STAFF PHYSICIAN] - 3-5 Days Care Physician,No Primary [Primary Care Provider] - Disposition Disposition: Home, Self Care Discharge Date/Time: 12/21/20 13:54
[2020-12-21 09:44] LABS: Absolute Lymphocyte Count 2.21 X10^3/uL (0.83-4.51); Absolute Neutrophil Count 9.8 X10^3/uL (2.0-7.7); Basophil% 0.8 % (0-1); Eosinophil# 0.03 X10^3/uL; Eosinophils% 0.2 % (0-5); Hematocrit 47.9 % (40-54); Hemoglobin 16.3 g/dL (13.0-16.5); Lymphocyte # 2.21 X10^3/ul (0.83-4.51); Lymphocyte % 17.1 % (19-41); Mean Corpuscular Volume 85.2 fL (80-94); Mean Platelet Vol. 9.1 fl (6.2-12.0); Monocyte# 0.74 X10^3/uL; Monocyte% 5.7 % (0-10); NRBC Flagged by Analyzer 0 % (0-5); Neutrophil # 9.77 X10^3/uL (2.7-7.7); Neutrophil % 75.5 % (47-70); Platelet Count 445 K/mm3 (150-450); RBC Distribution Width CV 12.5 % (11.6-14.6); RBC Distribution Width SD 38.5 fl (35.1-43.9); Red Blood Count 5.62 M/mm3 (4.6-6.2); White Blood Count 12.9 K/mm3 (4.4-11.0)
[2020-12-21] MEDS: Ondansetron 4 MG/2 ML Vial IV (09:46)
[2020-12-21] MEDS: Morphine 4 MG/ML Syringe IV ×3 (09:46→13:35)
[2020-12-21] MEDS: Mag Hydrox/Al Hydrox/Simeth 30 ML UDC PO (09:47)
[2020-12-21] MEDS: 0.9% Normal Saline 1,000 ML 1000 ML IV (09:47)
[2020-12-21 09:56] LABS: ALB/GLOB Ratio 0.8 RATIO (0.9-2.4); AST(SGOT) 12 U/L (15-37); Alanine Aminotransfer ALT/SGPT 46 U/L (16-61); Albumin, Serum 3.8 g/dL (3.2-5.0); Alkaline Phosphatase 70 U/L (45-117); Anion Gap 12 (5-15); BUN 13 mg/dL (7-18); BUN/Creat Ratio 11.2 RATIO (10-20); Calcium,Total 9.6 mg/dL (8.5-10.1); Chloride 106 mmol/L (98-107); Creatinine, Serum 1.16 mg/dL (0.70-1.30); EST Glomerular Filtration Rate 78 mL/min (>60); Est Glom Filt Rate - Afr Amer 94 mL/min (>60); Estimated Creatinine Clearance 92.27 ml/min; Globulin 4.7 g/dL (2.2-4.2); Glucose 175 mg/dL (74-106); Lipase 116 U/L (73-393); Potassium 4.1 mmol/L (3.5-5.1); Protein, Total 8.5 g/dL (6.4-8.2); Sodium Level 139 mmol/L (136-145)
[2020-12-21 10:26] LABS: Lactic Acid 2.1 mmol/L (0.4-1.9)
[2020-12-21 11:21] LABS: Bacteria 0 SEEN /hpf (None Seen); Mucous, Urine 0 SEEN /hpf (<or=2+); Red Blood Cells-Urine 0 SEEN /hpf (0-5); Squamous Epithelial Cells - UA 0 SEEN /hpf (0-5); White Blood Cells 0 SEEN /hpf (0-5)
[2020-12-21 11:23] LABS: Color, Urine Yellow (Yellow); Glucose, Dipstick Normal (Normal); Ketone-Dipstick 15 mg/dl (Negative); Leukocyte Esterase-Dipstick Negative /ul (Negative); Nitrite-Dipstick Negative (Negative); Occult Blood-Urine 10 /ul (Negative); Protein-Dipstick 30 mg/dl (Negative); Urine Bilirubin Dipstick Negative (Negative); Urine Clarity Clear (Clear); Urine Urobilinogen Normal (Normal); Urine pH 6.5 (5.0 - 8.0)
--- NOTE | 2020-12-21 11:27 | CT_ITS ---
EXAM DESCRIPTION: CT scan of the abdomen and pelvis CLINICAL HISTORY: 30 years Male, abd pain COMPARISON: None TECHNIQUE: A CT scan of the abdomen and pelvis was performed with IV contrast contrast administration. Oral contrast was not administered. Coronal and sagittal reconstruction images were reviewed. This exam was performed according to our departmental dose-optimization program, which includes automated exposure control, adjustment of the mA and/or kV according to patient size and/or use of iterative reconstruction technique. FINDINGS: The lung bases and the base of the heart are normal. The liver is normal.The spleen is normal.The adrenal glands are normal.The head, body, and tail of the pancreas are normal. The right and left kidneys were examined and appear to be normal. Both ureters appear to be normal, and no obstructive uropathy is identified. The abdominal aortal is normal along its course and distribution. No paraortic lymphadenopathy is seen. No abdominal masses or lesions are seen. The CT scan of the pelvis was then reviewed. The common iliac vessels, external iliac vessels, and common femoral vessels are normal along their course and distribution No pelvis masses or lesions are seen. The appendix is normal. No pericecal inflammatory reaction is seen. Bone scanning windows of the lumbar spine and pelvis were reviewed in the coronal and sagittal planes and show bilateral spondylitic defects of L5 with mildly bulging disc at this level and no evidence of spondylolisthesis. CT/Abdomen/Pelvis W IV Cont ONLY IMPRESSION: Bilateral spondylitic defects are noted of L5 with no evidence of spondylolisthesis. Otherwise the CT scan of the abdomen and pelvis is normal. Electronically Signed: Prudencio Yancey DO at 12:10 EDT Tel , Service support ,
[2020-12-21] MEDS: Dicyclomine 20 MG/2 ML Vial IM (11:31)
[2020-12-21 13:00] VITALS: BP 162/94; PULSE 77; RESP 16; O2SAT 97
[2020-12-21 13:47] VITALS: BP 118/64; PULSE 72; RESP 15; O2SAT 96
[2020-12-21 13:57] LABS: Reflex Lactate? Y
== END 2020-12-21 13:54 | disposition home or self-care (01) ==
PROVIDERS: Emergency Provider Emergency Medicine
DX: R10.13 Epigastric pain (principal); R10.12 Left upper quadrant pain; I10 Essential (primary) hypertension; Z79.899 Other long term (current) drug therapy
CPT/HCPCS: 74177; 80053; 81001; 83605; 83690; 85025; 96361; 96365; 96372; 96375; 96376; 99285; J7030; Q9967; A4216; J2405; J3490

== ENCOUNTER 2021-01-28 04:49 | Emergency (ER) | payer SELFPAY ==
[2021-01-28 04:50] VITALS: BP 163/112; PULSE 85; RESP 18; TEMP 36.8; O2SAT 97; BMI 37.3
[2021-01-28 05:28] LABS: Absolute Lymphocyte Count 3.41 X10^3/uL (0.83-4.51); Absolute Neutrophil Count 6.3 X10^3/uL (2.0-7.7); Basophil# 0.09 X10^3/uL; Basophil% 0.8 % (0-1); Eosinophil# 0.11 X10^3/uL; Hematocrit 46.2 % (40-54); Hemoglobin 15.5 g/dL (13.0-16.5); Lymphocyte # 3.41 X10^3/ul (0.83-4.51); Lymphocyte % 30.3 % (19-41); Mean Corp Hgb Conc 33.5 g/dL (32-36); Mean Corpuscular Hgb 28.7 pg (27.0-32.0); Mean Corpuscular Volume 85.6 fL (80-94); Mean Platelet Vol. 8.9 fl (6.2-12.0); Monocyte# 1.27 X10^3/uL; Monocyte% 11.3 % (0-10); NRBC Flagged by Analyzer 0 % (0-5); Neutrophil # 6.31 X10^3/uL (2.7-7.7); Platelet Count 421 K/mm3 (150-450); RBC Distribution Width CV 12.6 % (11.6-14.6); RBC Distribution Width SD 39.2 fl (35.1-43.9); White Blood Count 11.3 K/mm3 (4.4-11.0)
[2021-01-28] MEDS: 0.9% Normal Saline 1,000 ML 999 ML IV (05:32)
[2021-01-28] MEDS: Morphine 4 MG/ML Syringe IV (05:33)
[2021-01-28] MEDS: Ondansetron 4 MG/2 ML Vial IV ×2 (05:33→05:56)
--- NOTE | 2021-01-28 05:34 | EDS_ITS ---
HPI History of Present Illness Chief Complaint: Abd Pain Narrative Narrative: Patient is a 31-year-old male who presents with generalized abdominal discomfort and bouts of nausea and vomiting. He states over the past 6 months to a year he has had recurrent bouts of nausea and vomiting abdominal pain. He reports he seen a nurse practitioner and been to the ER multiple times with no obvious cause for his symptoms. He states that over the past 2 to 3 days he has had increasing upper abdominal pain that is worse with eating and bouts of vomiting associated with this. He states that the pain is slowly increased and he is concerned about dehydration as he cannot keep any food or fluid down and therefore comes in for evaluation [facility] Medical History Hypertension Home Medications lisinopril 40 mg PO DAILY 09/09/20 [History Last Taken Unknown] dicyclomine 20 mg PO TID #14 tab 12/21/20 [Rx Last Taken Unknown] esomeprazole magnesium [Nexium] 20 mg PO DAILY #30 cap 12/21/20 [Rx Last Taken Unknown] ondansetron HCl [Zofran] 4 mg PO Q8H PRN #14 tab 12/21/20 [Rx Last Taken Unknown] sucralfate [Carafate] 1 g PO Q6H #30 tab 12/21/20 [Rx Last Taken Unknown] promethazine 25 mg PO TID PRN #21 tab 01/28/21 [Rx Last Taken Unknown] Allergy/AdvReac Type Severity Reaction Status Date / Time No Known Allergies Allergy Verified 12/21/20 09:18 Social History Smoking Status: Current every day smoker tobacco type: e-cigarettes ROS ROS ED Constitutional Constitutional ED: Denies chills or fever(s) ENT ENT ED: Reports sore throat Cardiovascular Cardiovascular: Denies chest pain Respiratory/Chest Respiratory/Chest: Denies cough or dyspnea Gastrointestinal Gastrointestinal: Reports abdominal pain, nausea and vomiting; Denies diarrhea Genitourinary Genitourinary ED: Denies dysuria Musculoskeletal Musculoskeletal: Denies myalgias Integumentary Denies rash Neurologic Neurologic: Denies headache(s) Hematologic/Lymphatic Hematologic/Lymphatic: Denies easy bleeding or easy bruising EXAM Physical Exam Const Vital Signs: 01/28/21 04:50 09/12/21 07:38 Temperature 98.2 F Temperature Source Oral Pulse Rate 85 Respiratory Rate 18 16 Blood Pressure 163/112 H Blood Pressure Mean 129 Pulse Ox 97 Oxygen Delivery Method Room Air Positive well nourished and well developed General Appearance ED: well developed HEENT Reports moist mucous membranes HEENT Narrative: No oral lesions no airway edema or compromise Eyes PERRL and EOMs intact bilaterally Neck supple Neck Narrative: No crepitance noted Resp normal respiratory effort and clear to auscultation bilaterally Cardio regular rate and regular rhythm GI non-distended GI Narrative: Abdomen is obese soft and nondistended with hyperactive bowel sounds. No voluntary guarding or rigidity. There is mild diffuse pain in the upper abdomen greatest in the midepigastric region with palpation. No pulsatile mass Palpation: soft Back/Spine no CVA tenderness Extremity normal to inspection Neuro oriented x3 and CN's II-XII intact bilaterally Sensorium / Orientation: alert Psych mental status grossly normal Skin no rashes or lesions noted MDM MDM MDM Narrative Medical decision making narrative: Patient presented to the ER afebrile with a soft nonsurgical abdomen. Chart review reveals he has had three CT scans since August and each have not showed any obvious cause for his symptoms. Therefore at this time based on his vitals and physical exam I do not feel there is need for repeat imaging study. Patient had basic labs obtained which showed no clinically significant findings. Based on his report of recurrent nausea and vomiting abdominal pain every few weeks to months I do feel he has cyclic vomiting syndrome. At this time as he is not have signs of acute kidney injury or severe dehydration I do not feel there is need for further work-up or hospitalization and patient is safe for discharge Lab Data Labs: Laboratory Results - last 24 hr 01/28/21 01/28/21 01/28/21 04:55 04:55 06:42 WBC 11.3 H RBC 5.40 Hgb 15.5 Hct 46.2 MCV 85.6 MCH 28.7 MCHC 33.5 RDW Std Deviation 39.2 RDW Coeff of Meño 12.6 Plt Count 421 MPV 8.9 Immature Gran % (Auto) 0.600 Neut % (Auto) 56.0 Lymph % (Auto) 30.3 [place] % (Auto) 11.3 H Eos % (Auto) 1.0 Baso % (Auto) 0.8 Absolute Neuts (auto) 6.3 Absolute Lymphs (auto) 3.41 Nucleated RBC % 0 Sodium 139 Potassium 3.9 Chloride 109 H Carbon Dioxide 20.0 L Anion Gap 10 BUN 15 Creatinine 1.06 Estim Creat Clear Calc 103.30 Est GFR (MDRD) Af Amer 104 Est GFR (MDRD) Non-Af 86 BUN/Creatinine Ratio 14.2 Glucose 153 H Calcium 9.2 Magnesium 2.0 Total Bilirubin 0.70 Direct Bilirubin 0.20 AST 19 ALT 60 Alkaline Phosphatase 62 Total Protein 8.0 Albumin 3.4 Globulin 4.6 H Lipase 168 Urine Opiates Screen POSITIVE H Urine Methadone Screen NEGATIVE Ur Barbiturates Screen NEGATIVE Ur Phencyclidine Scrn NEGATIVE Ur Amphetamines Screen NEGATIVE U Methamphetamin-MDMA NEGATIVE U Benzodiazepines Scrn NEGATIVE Urine Cocaine Screen NEGATIVE U Cannabinoids Screen NEGATIVE Ur Drug Screen Comment Discharge Plan Triage Chief Complaint: Abd Pain ED Provider: Yasmani Licea Dx/Rx/DC Orders Clinical Impression: Nausea & vomiting, Nonspecific abdominal pain Instructions: Abdominal Pain, ED Cyclic Vomiting Syndrome Prescriptions: New promethazine 25 mg tablet 25 mg PO TID PRN (Reason: nausea and vomiting) Qty: 21 RF: 0 No Action lisinopril 40 MG tablet 40 mg PO DAILY RF: 0 sucralfate [Carafate] 1 gram tablet 1 g PO Q6H Qty: 30 RF: 0 dicyclomine 20 mg tablet 20 mg PO TID Qty: 14 RF: 0 esomeprazole magnesium [Nexium] 20 mg capsule,delayed release(DR/EC) 20 mg PO DAILY Qty: 30 RF: 0 ondansetron HCl [Zofran] 4 mg tablet 4 mg PO Q8H PRN (Reason: nausea and vomiting) Qty: 14 RF: 0 Primary Care Provider: Janet Maradiaga Referrals: Janet Maradiaga PA [Primary Care Provider] - Disposition Disposition: Home, Self Care
[2021-01-28 05:51] LABS: AST(SGOT) 19 U/L (15-37); Alanine Aminotransfer ALT/SGPT 60 U/L (16-61); Albumin, Serum 3.4 g/dL (3.2-5.0); Alkaline Phosphatase 62 U/L (45-117); Anion Gap 10 (5-15); BUN 15 mg/dL (7-18); BUN/Creat Ratio 14.2 RATIO (10-20); Calcium,Total 9.2 mg/dL (8.5-10.1); Chloride 109 mmol/L (98-107); Creatinine, Serum 1.06 mg/dL (0.70-1.30); EST Glomerular Filtration Rate 86 mL/min (>60); Est Glom Filt Rate - Afr Amer 104 mL/min (>60); Globulin 4.6 g/dL (2.2-4.2); Glucose 153 mg/dL (74-106); Lipase 168 U/L (73-393); Potassium 3.9 mmol/L (3.5-5.1); Sodium Level 139 mmol/L (136-145)
[2021-01-28] MEDS: Mag Hydrox/Al Hydrox/Simeth 30 ML UDC PO (05:59)
[2021-01-28] MEDS: Haloperidol Lactate 5 MG/ML Vial IV (06:50)
[2021-01-28] MEDS: HYDROmorphone 1 MG/ML Syringe IV (06:50)
[2021-01-28 07:09] LABS: Amphetamine Urine VISTA NEGATIVE (<1000 ng/mL); Barbiturate Urine VISTA NEGATIVE (< 200 ng/mL); Benzodiazepine Urine VISTA NEGATIVE (< 200 ng/mL); Cocaine Urine VISTA NEGATIVE (< 300 ng/mL); Ecstacy Urine VISTA NEGATIVE (< 500 ng/mL); Methadone Urine VISTA NEGATIVE (< 300 ng/mL); PCP Urine VISTA NEGATIVE (< 25 ng/mL); THC Urine VISTA NEGATIVE (< 50 ng/mL); Vista UDS pH Range 5
[2021-01-28 07:38] VITALS: RESP 16
[2021-01-28] MEDS: oxyCODONE 5 MG Tablet PO (08:06)
[2021-01-28 08:10] VITALS: BP 162/96; PULSE 92; RESP 16; O2SAT 96
== END 2021-01-28 08:11 | disposition home or self-care (01) ==
PROVIDERS: Emergency Provider Emergency Medicine; PCP Physician Assistant
DX: R10.84 Generalized abdominal pain (principal); R11.2 Nausea with vomiting, unspecified; I10 Essential (primary) hypertension; F17.290 Nicotine dependence, other tobacco product, uncomplicated; Z79.899 Other long term (current) drug therapy
CPT/HCPCS: 80048; 80076; 80307; 83690; 83735; 85025; 96361; 96374; 96375; 96376; 99284; J7030; A4216; J2405

== ENCOUNTER 2021-09-28 08:22 | Observation (INO) | payer BC, SELFPAY ==
[2021-09-28] VITALS (10 sets, daily range): BP systolic 153–188; BP diastolic 87–106; PULSE 73–90; RESP 16–18; TEMP 36.6–37.2; O2SAT 96–99; BMI 39.1; BMI 38.3
--- NOTE | 2021-09-28 08:42 | ED.VIS.GI ---
HPI HPI - GI History of Present Illness Chief Complaint: Nausea/Vomiting Informant: patient Narrative Narrative: Patient is a 31-year-old male with history of intermittent episodes of abdominal discomforts, nausea and vomiting is presenting with cramping abdominal pain, nausea and vomiting. He states every 3 to 4 months he will get these flareups. He states he has had the symptoms for the past few days however over the last 24 hours he is unable to keep anything down. States even trying to drink water he will throw it up. He has maybe had some coffee ground discoloration to his emesis now. He states he cannot sleep because he cannot get comfortable. He has had decreased bowel movements because he is not taking anything in but he states he is continue to pass gas. He is never seen GI. Patient does vape intermittently but denies any marijuana use. Denies any alcohol use. Denies any significant NSAID use. Denies any surgical history. Denies any family history of inflammatory irritable bowel syndrome. He has not seen GI and does not currently follow with a primary care doctor stating he is waiting on his insurance to kick in. He does note that hot showers seem to help his symptoms. Patient was seen 5 times for similar complaints last year and had 3 CTs of his abdomen and pelvis. [facility] Medical History Hypertension Home Medications lisinopril 40 mg PO DAILY 09/09/20 [History Last Taken Unknown] dicyclomine 20 mg PO TID #14 tab 12/21/20 [Rx Last Taken Unknown] esomeprazole magnesium [Nexium] 20 mg PO DAILY #30 cap 12/21/20 [Rx Last Taken Unknown] ondansetron HCl [Zofran] 4 mg PO Q8H PRN #14 tab 12/21/20 [Rx Last Taken Unknown] sucralfate [Carafate] 1 g PO Q6H #30 tab 12/21/20 [Rx Last Taken Unknown] promethazine 25 mg PO TID PRN #21 tab 01/28/21 [Rx Last Taken Unknown] Allergy/AdvReac Type Severity Reaction Status Date / Time No Known Allergies Allergy Verified 09/28/21 08:24 Social History Smoking Status: Current every day smoker tobacco type: e-cigarettes ROS ROS ED Constitutional Constitutional ED: Denies chills or fever(s) ENT ENT ED: Denies rhinorrhea or sore throat Cardiovascular Cardiovascular: Denies chest pain Respiratory/Chest Respiratory/Chest: Denies cough or dyspnea Gastrointestinal Gastrointestinal: Reports abdominal pain, nausea and vomiting; Denies constipation or diarrhea Genitourinary Genitourinary ED: Denies dysuria Musculoskeletal Musculoskeletal: Denies arthralgias or myalgias Integumentary Denies rash Neurologic Neurologic: Reports weakness; Denies headache(s) Psychiatric Psychiatric: Denies depression EXAM Physical Exam Const Vital Signs: 09/28/21 08:23 09/28/21 12:54 09/28/21 13:03 Temperature 97.9 F Temperature Source Temporal Pulse Rate 90 Respiratory Rate 18 Blood Pressure 155/106 H 188/87 H 164/89 H Blood Pressure Mean 122 120 114 Pulse Ox 99 Oxygen Delivery Method Room Air 09/28/21 15:28 Temperature Temperature Source Pulse Rate 73 Respiratory Rate 18 Blood Pressure 153/93 H Blood Pressure Mean 113 Pulse Ox 96 Oxygen Delivery Method Room Air Positive well nourished and well developed General Appearance ED: well developed and NAD HEENT Reports moist mucous membranes normocephalic and atraumatic Eyes PERRL and EOMs intact bilaterally Neck supple Resp normal respiratory effort and clear to auscultation bilaterally Cardio regular rate, regular rhythm and no murmurs GI non-tender and non-distended Auscultation: normoactive bowel sounds Palpation: soft; Negative for guarding or rigid Back/Spine no CVA tenderness Neuro Sensorium / Orientation: alert, oriented to person, oriented to place and oriented to time Motor Exam: Negative for general weakness Psych mental status grossly normal Skin Lesions: no lesions Rashes: no rashes MDM MDM MDM Narrative Medical decision making narrative: Patient is evaluated for recurrent episode of abdominal discomfort, nausea and vomiting. It seems at the pain makes the vomiting and nausea worse. He states he gets intermittent episodes of this every few months but he is never followed up with a family doctor or GI doctor to figure out what it is. Denies any family history. Denies any marijuana use. Notes heat does help. Patient is a mild leukocytosis of 12.6 but no clear infection. Hemoglobin is stable at 15.8. His creatinine is mildly elevated 1.39 however CO2, BUN and anion gap are normal. Liver function is normal as well as lipase. Retrocardial ultrasound shows fatty liver but no acute process including no acute cholecystitis. Patient is given initially IV Haldol, IV fluids and Pepcid. Repeat evaluation he has no improvement. He is then given IV Reglan with some minor improvement however the symptoms worsen again. He is then given IV morphine and GI cocktail. He states he gets temporary relief with that and then the symptoms returned and he starts vomiting again. Patient is then given IV Compazine, Bentyl and IV Ativan. Again he has no improvement of his symptoms. CT of the abdomen pelvis is added on to rule out any acute process given his intractable symptoms. This is negative. He is given a second dose of IM Phenergan and another dose of morphine. Case was discussed with GI who had recommended the Ativan but had no further immediate recommendations. Discussed with patient as he continues to be symptomatic and he would like to be observed in the hospital for further symptom control. Patient is excepted by Dr. Mendoza. Lab Data Attestation: I reviewed the patient's lab results. Labs: Laboratory Results - last 24 hr 09/28/21 09/28/21 08:55 08:55 WBC 12.6 H RBC 5.44 Hgb 15.8 Hct 46.9 MCV 86.2 MCH 29.0 MCHC 33.7 RDW Std Deviation 39.9 RDW Coeff of Meño 12.9 Plt Count 433 MPV 9.0 Immature Gran % (Auto) 1.200 H Neut % (Auto) 67.6 Lymph % (Auto) 22.5 [place] % (Auto) 7.5 Eos % (Auto) 0.5 Baso % (Auto) 0.7 Absolute Neuts (auto) 8.5 H Absolute Lymphs (auto) 2.83 Nucleated RBC % 0 Sodium 137 Potassium 4.6 Chloride 106 Carbon Dioxide 24.0 Anion Gap 7 BUN 16 Creatinine 1.39 H Estim Creat Clear Calc 76.29 Est GFR (MDRD) Af Amer 76 Est GFR (MDRD) Non-Af 63 BUN/Creatinine Ratio 11.5 Glucose 163 H Calcium 9.6 Total Bilirubin 0.60 AST 20 ALT 49 Alkaline Phosphatase 66 Total Protein 8.4 H Albumin 3.6 Globulin 4.8 H Albumin/Globulin Ratio 0.8 L Lipase 146 Radiography Diagnostic Testing: Clinical Impression(s) from Imaging Studies Gallbladder Ultrasound 09/28/21 12:43 IMPRESSION: Heterogeneous echotexture of the liver. Mild fatty infiltration. Electronically Signed: Papa Joy MD at 14:32 EDT , Abdomen/Pelvis CT 09/28/21 15:44 IMPRESSION: No acute findings in the abdomen or pelvis. Electronically Signed: Valdemar Ruiz MD at 16:33 EDT , Discharge Plan Triage Chief Complaint: Nausea/Vomiting ED Provider: Leilani Jurado Dx/Rx/DC Orders Clinical Impression: Intractable abdominal pain, Intractable nausea and vomiting Prescriptions: No Action lisinopril 40 MG tablet 40 mg PO DAILY RF: 0 sucralfate [Carafate] 1 gram tablet 1 g PO Q6H Qty: 30 RF: 0 dicyclomine 20 mg tablet 20 mg PO TID Qty: 14 RF: 0 esomeprazole magnesium [Nexium] 20 mg capsule,delayed release(DR/EC) 20 mg PO DAILY Qty: 30 RF: 0 ondansetron HCl [Zofran] 4 mg tablet 4 mg PO Q8H PRN (Reason: nausea and vomiting) Qty: 14 RF: 0 promethazine 25 mg tablet 25 mg PO TID PRN (Reason: nausea and vomiting) Qty: 21 RF: 0 Primary Care Provider: Janet Maradiaga Referrals: Janet Maradiaga PA [Primary Care Provider] - Disposition Disposition: Acute Care [facility]
[2021-09-28] MEDS: Haloperidol Lactate 5 MG/ML Vial 1 MG IV (09:04)
[2021-09-28] MEDS: 0.9% Normal Saline 1,000 ML 1000 ML IV (09:04)
[2021-09-28] MEDS: Famotidine 200 MG/20 ML MDV 20 MG in 0.9% Normal Saline (Pres. free 8 ML 300 MG IV (09:05)
[2021-09-28 09:06] LABS: Absolute Lymphocyte Count 2.83 X10^3/uL (0.83-4.51); Absolute Neutrophil Count 8.5 X10^3/uL (2.0-7.7); Basophil# 0.09 X10^3/uL; Basophil% 0.7 % (0-1); Eosinophil# 0.06 X10^3/uL; Eosinophils% 0.5 % (0-5); Hematocrit 46.9 % (40-54); Hemoglobin 15.8 g/dL (13.0-16.5); Lymphocyte # 2.83 X10^3/ul (0.83-4.51); Lymphocyte % 22.5 % (19-41); Mean Corp Hgb Conc 33.7 g/dL (32-36); Mean Corpuscular Volume 86.2 fL (80-94); Monocyte# 0.94 X10^3/uL; Monocyte% 7.5 % (0-10); NRBC Flagged by Analyzer 0 % (0-5); Neutrophil # 8.48 X10^3/uL (2.7-7.7); Neutrophil % 67.6 % (47-70); Platelet Count 433 K/mm3 (150-450); RBC Distribution Width CV 12.9 % (11.6-14.6); RBC Distribution Width SD 39.9 fl (35.1-43.9); Red Blood Count 5.44 M/mm3 (4.6-6.2); White Blood Count 12.6 K/mm3 (4.4-11.0)
[2021-09-28 09:24] LABS: ALB/GLOB Ratio 0.8 RATIO (0.9-2.4); AST(SGOT) 20 U/L (15-37); Alanine Aminotransfer ALT/SGPT 49 U/L (16-61); Albumin, Serum 3.6 g/dL (3.2-5.0); Alkaline Phosphatase 66 U/L (45-117); Anion Gap 7 (5-15); BUN 16 mg/dL (7-18); BUN/Creat Ratio 11.5 RATIO (10-20); Calcium,Total 9.6 mg/dL (8.5-10.1); Chloride 106 mmol/L (98-107); Creatinine, Serum 1.39 mg/dL (0.70-1.30); EST Glomerular Filtration Rate 63 mL/min (>60); Est Glom Filt Rate - Afr Amer 76 mL/min (>60); Estimated Creatinine Clearance 76.29 ml/min; Globulin 4.8 g/dL (2.2-4.2); Glucose 163 mg/dL (74-106); Lipase 146 U/L (73-393); Potassium 4.6 mmol/L (3.5-5.1); Protein, Total 8.4 g/dL (6.4-8.2); Sodium Level 137 mmol/L (136-145)
[2021-09-28] MEDS: Metoclopramide 10 MG/2 ML Vial 5 MG IV (10:32)
[2021-09-28] MEDS: Dicyclomine 10 MG Capsule 20 MG PO (10:32)
[2021-09-28] MEDS: Mag Hydrox/Al Hydrox/Simeth 30 ML UDC PO (11:28)
--- NOTE | 2021-09-28 12:43 | US_ITS ---
STUDY: ABDOMINAL ULTRASOUND - RIGHT UPPER QUADRANT REASON FOR VISIT: Male, 31 years old RUQ pain, nausea/ vomiting TECHNIQUE: Ultrasound evaluation of the right upper quadrant was performed with real-time and static lee-scale imaging. TECHNICAL QUALITY: Adequate. COMPARISON: None. FINDINGS: Liver: The liver measures 15.4 cm. There is a heterogeneous echogenicity of the liver. The bile ducts are within normal limits. There is hepatic color flow. The direction of portal flow is hepatopetal. There is no demonstrated mass lesion. Gallbladder: Normal distended gallbladder. The gallbladder wall measures 2 mm. There is a negative sonographic Glover''s sign. There is no pericholecystic fluid. There are no gallstones. Common Bile Duct (C.B.D.): The common bile duct measures 3 mm. Pancreas: There is nonvisualization of the pancreas due to overlying bowel gas. Right Kidney: Normal size of the right kidney. The right kidney measures 12.1 cm x 6.2 cm x 5.2 cm. Normal renal cortex. The right cortex measures 1.4 cm. There is no demonstrated renal mass or cyst. There is no right hydronephrosis. US/Gallbladder IMPRESSION: Heterogeneous echotexture of the liver. Mild fatty infiltration. Electronically Signed: Papa Joy MD at 14:32 EDT ,
[2021-09-28] MEDS: Morphine 4 MG/ML Syringe IV ×2 (13:00→16:52)
[2021-09-28] MEDS: proCHLORPERazine 10 MG/2 ML Vial 5 MG IV (13:00)
[2021-09-28] MEDS: LORazepam 2 MG/ML Syringe 1 MG IV (15:24)
--- NOTE | 2021-09-28 15:44 | CT_ITS ---
EXAM: CT ABDOMEN AND PELVIS WITH INTRAVENOUS CONTRAST CLINICAL INDICATION: abd pain TECHNIQUE: Helically acquired images were obtained of the abdomen and pelvis with intravenous contrast. This CT exam was performed using one or more of the following dose reduction techniques: automated exposure control, adjustment of the mA and/or kV according to patient size, and/or use of iterative reconstruction technique. This report was created using Dexetra report generation technology. CONTRAST: IV 100mL Isovue-300 COMPARISON: 12/21/2020 FINDINGS: LOWER THORAX: Unremarkable. Lung bases are clear. No cardiomegaly. No significant pericardial effusion. ABDOMEN: LIVER: Unremarkable. Homogeneous. No focal mass. GALLBLADDER AND BILE DUCTS: Unremarkable. No calcified gallstones. No gallbladder distention or wall edema. No intra- or extrahepatic biliary ductal dilation. PANCREAS: Unremarkable. No focal cystic or solid mass. SPLEEN: Unremarkable. Normal size without focal cystic or solid mass. ADRENALS: Unremarkable. No nodules. KIDNEYS AND URETERS: Unremarkable. Normal renal size and position. No hydronephrosis. STOMACH AND BOWEL: Unremarkable. No stomach or bowel distention. No focal inflammatory change. PELVIS: APPENDIX: No evidence of acute appendicitis. BLADDER: Unremarkable. REPRODUCTIVE: Unremarkable as visualized. No mass. ABDOMEN and PELVIS: INTRAPERITONEAL SPACE: Unremarkable. No ascites or other fluid collection. No free air. 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 No suspicious lytic or blastic abnormality. SOFT TISSUES: Unremarkable. No discrete abdominal or pelvic wall hernia. VASCULATURE: Unremarkable. Abdominal aorta is non-dilated. LYMPH NODES: Unremarkable. No enlarged lymph nodes. CT/Abdomen/Pelvis W IV Cont ONLY IMPRESSION: No acute findings in the abdomen or pelvis. Electronically Signed: Valdemar Ruiz MD at 16:33 EDT ,
[2021-09-28] MEDS: proMETHazine 25 MG/ML Syringe IM (16:53)
[2021-09-28] MEDS: Lidocaine 4% 5 ML Ampul 2 ML INHALATION (17:17)
--- NOTE | 2021-09-28 17:18 | HP.PCM.HOS_ITS ---
Documented by User: Prudencio SINGH 09/28/21 17:43 HPI - General General Date of Admission: 09/28/21 Date of Service: 09/28/21 Chief Complaint: Nausea and vomiting HPI Narrative ANGELITO OCONNELL is a 31-year-old male who presents to the ED at [facility] on 09/28/2021 with a chief complaint of nausea and vomiting with abdominal cramping and pain. Patient reports that for the last 24 hours he has had uncontrollable nausea and vomiting and is unable to keep any thing down. Patient reports that he has had similar episodes in the past and they occur about every 3 to 4 months. Patient denies having extensive work-up for this in the past. Patient denies any alcohol or narcotic use. Patient denies any recent sick contacts. Patient denies being in contact with anyone who has had similar symptoms. Patient has never seen a GI specialist and denies any known family history of IBS. Patient has had 3 separate CTs within the past year, all which have been unremarkable for any acute GI process. Vital signs in the ED are only sniffing and for hypertension, otherwise unremarkable. CBC shows mildly elevated white count at 12.6, otherwise unremarkable. BMP shows mildly elevated creatinine at 1.39, otherwise unremarkable. CT of the abdomen/pelvis demonstrates no acute findings the abdomen or pelvis. Patient was given several anti nausea and vomiting medications with no success in the ED to include Haldol, Reglan, Bentyl, Compazine, Ativan, morphine, Phenergan. GI specialist was consulted, and recommended inserting an NG tube and will follow patient in a.m. [facility] Medical History (Updated 09/28/21 @ 17:30 by Prudencio SINGH) Hypertension Intractable nausea and vomiting Home Medications amoxicillin-pot clavulanate [Augmentin] 1 tab PO BID 09/28/21 [History Last Taken 09/28/21] Allergy/AdvReac Type Severity Reaction Status Date / Time No Known Allergies Allergy Verified 09/28/21 08:24 Family History no significant family his no significant family history Surgical History no surgical history no surgical history Social History Smoking Status: Current every day smoker tobacco type: e-cigarettes ROS Review of Systems ROS Unobtainable: due to mental status and other Details: Unable to assess ROS given patient medication induced somnolence and lethargy. Vital Signs Vital Signs Vital Signs: 09/28/21 08:23 09/28/21 12:54 09/28/21 13:03 Temperature 97.9 F Temperature Source Temporal Pulse Rate 90 Respiratory Rate 18 Blood Pressure 155/106 H 188/87 H 164/89 H Blood Pressure Mean 122 120 114 Pulse Ox 99 Oxygen Delivery Method Room Air 09/28/21 15:28 Temperature Temperature Source Pulse Rate 73 Respiratory Rate 18 Blood Pressure 153/93 H Blood Pressure Mean 113 Pulse Ox 96 Oxygen Delivery Method Room Air Weight Weight: 265 lb Body Mass Index (BMI) 39.1 Physical Exam Const alert Orientation / Consciousness: lethargic HEENT normocephalic, head/scalp atraumatic and hearing grossly normal bilaterally Eyes PERRL, EOMs intact bilaterally and conjunctivae normal Neck no lymphadenopathy, supple and no JVD Resp normal respiratory effort, no retractions and no use of accessory muscles Cardio regular rate, regular rhythm and no JVD GI normal to inspection, nondistended, normoactive bowel sounds and soft to palp ation Inspection: central obesity Extremity normal to inspection, full ROM and no clubbing, cyanosis or edema Skin no rashes or lesions noted, no wounds and no jaundice Neuro Neuro Narrative: Unable to assess due to patient lethargy and somnolence. Psych Psych Narrative: Unable to assess due to patient lethargy and somnolence. Results Lab / Micro Data Result Diagrams: 09/28/21 08:55 09/28/21 08:55 Labs: Laboratory Results - last 24 hr 09/28/21 08:55: WBC 12.6 H, RBC 5.44, Hgb 15.8, Hct 46.9, MCV 86.2, MCH 29.0, MCHC 33.7, RDW Std Deviation 39.9, RDW Coeff of Meño 12.9, Plt Count 433, MPV 9.0, Immature Gran % (Auto) 1.200 H, Neut % (Auto) 67.6, Lymph % (Auto) 22.5, [place] % (Auto) 7.5, Eos % (Auto) 0.5, Baso % (Auto) 0.7, Absolute Neuts (auto) 8.5 H, Absolute Lymphs (auto) 2.83, Nucleated RBC % 0 09/28/21 08:55: Sodium 137, Potassium 4.6, Chloride 106, Carbon Dioxide 24.0, Anion Gap 7, BUN 16, Creatinine 1.39 H, Estim Creat Clear Calc 76.29, Est GFR (MDRD) Af Amer 76, Est GFR (MDRD) Non-Af 63, BUN/Creatinine Ratio 11.5, Glucose 163 H, Calcium 9.6, Total Bilirubin 0.60, AST 20, ALT 49, Alkaline Phosphatase 66, Total Protein 8.4 H, Albumin 3.6, Globulin 4.8 H, Albumin/Globulin Ratio 0.8 L, Lipase 146 Radiology Impression Gallbladder Ultrasound 09/28/21 12:43 IMPRESSION: Heterogeneous echotexture of the liver. Mild fatty infiltration. Electronically Signed: Papa Joy MD at 14:32 EDT , Abdomen/Pelvis CT 09/28/21 15:44 IMPRESSION: No acute findings in the abdomen or pelvis. Electronically Signed: Valdemar Ruiz MD at 16:33 EDT , Assessment & Plan Assessment/Plan (1) Intractable nausea and vomiting: (2) Abdominal pain of unknown etiology: (3) Intractable abdominal pain: PLAN: Patient is a 31-year-old male who presents to the ED at [facility] on 09/28/2021 with a chief complaint of intractable nausea and vomiting. 1) intractable nausea and vomiting Unclear etiology. Patient has had similar episodes to this in the past, with no explanation. Patient has had multiple CTs of the abdomen/pelvis within the past year, which have demonstrated no acute reason for patient's intractable nausea and vomiting. Patient has never seen a GI specialist. Patient was given multiple antinausea vomiting medications while in the ED, which brought patient temporary or no relief. Dr. Granados was consulted by ED physician, who recommended to admit patient, place NG tube and that he will follow on the floor. Plan; admit to [facility], GI consult ordered, placed NG tube, n.p.o., as needed Zofran and morphine ordered, continue IV fluids, CBC and BMP in a.m.. 2) leukocytosis WBC is elevated at 12,000, likely reactionary secondary #1. Plan; as above. 3) NATTY Creatinine currently 1.39, likely secondary to dehydration given poor oral intake and N/V. IV fluids as above. We will continue to monitor BMP. 4) HTN Not controlled, although patient has not taken antihypertensive medications in several days. Hold home lisinopril. As needed hydralazine ordered. DVT prophylaxis - low risk, not indicated Patient seen by Prudencio Shook PA-C, under the supervision of Dr. Mendoza. Time spent on patient care: 25 minutes. Documented by User: Dr. Angel Mendoza, 09/28/21 18:01 HPI - General General Date of Admission: 09/28/21 [facility] Medical History (Updated 09/28/21 @ 17:30 by Prudencio SINGH) Hypertension Intractable nausea and vomiting Home Medications amoxicillin-pot clavulanate [Augmentin] 1 tab PO BID 09/28/21 [History Last Taken 09/28/21] Allergy/AdvReac Type Severity Reaction Status Date / Time No Known Allergies Allergy Verified 09/28/21 08:24 Family History no significant family his Surgical History no surgical history Social History Smoking Status: Current every day smoker tobacco type: e-cigarettes Results Lab / Micro Data Result Diagrams: 09/28/21 08:55 09/28/21 08:55 Charges/Coding Addendum Addendum: She was seen and examined independently of Prudencio Shook today, he came to the ER today at [facility] with a chief complaint of persistent nausea, vomiting, and abdominal pain which started approximately 2 days ago. Patient has a history of intermittent abdominal discomfort with nausea and vomiting for the past year, no firm diagnosis has been given to the patient why he has these episodes. Patient denies any diarrhea, he denies any blood in his stool or blood in his vomitus. Patient denies marijuana usage. Patient was given multiple medications for nausea and vomiting in the emergency room at the time of my examination, patient is somnolent but he does awaken to verbal and tactile stimulation and answers questions appropriately. On examination he appeared his stated age. Vital signs as documented. Skin warm and dry and without overt rashes. Neck without JVD, neck was supple, trachea midline, thyroid was normal. Lungs clear bilaterally, normal air movement was noted. Heart exam notable for regular rhythm, normal sounds and absence of murmurs, rubs or gallops. Abdomen unremarkable and without evidence of organomegaly, masses, or abdominal aortic enlargement. Bowel sounds are present, abdomen is not distended. Extremities nonedematous, no cyanosis was noted, no clubbing was noted. Neuro: Cranial nerves II through XII are grossly intact, no focal motor deficits were noted, sensation to light touch and pinprick intact, motor exam 5/5 throughout. Psych: Patient is somnolent on examination but he does awaken to verbal or painful stimuli, he does answer questions appropriately. Labs were obtained in the emergency room, patient's white blood cell count was slightly elevated at 12.6, creatinine was elevated at 1.39, glucose was 163. CT of the abdomen pelvis was obtained, it was unremarkable for acute findings, gallbladder ultrasound was performed which showed evidence of fatty liver infiltration but no other abnormality. Despite being given multiple medications for his nausea and vomiting, patient remained nauseated and an NG tube was replaced and the patient will be placed in observation status on MedSur, he will be seen by gastroenterology and he will be given IV fluids. Impression: #1 intermittent nausea and vomiting with acute exacerbation-etiology unclear, patient will be placed in observation status on MedSurg and be given IV fluids and antiemetics, he will be seen in consultation by gastroenterology, NG tube was placed in the emergency room and this will hopefully help the patient's nausea and vomiting. #2 diffuse abdominal pain-etiology unclear at this point, patient will be seen in consultation by gastroenterology #3 dehydration-patient will be given IV fluids, labs will be monitored I have reviewed Prudencio Shook's history and physical including his medical assessment and plan of care and with the above additions endorse it. Total clinical time spent by myself addressing the patient's medical issues, reviewing the patient's data, and collaborating with the patient's care team: 45 minutes Visit Charges OBSV E&M: [id number] Initial observation care L3
[2021-09-28] MEDS: Oxymetazoline 0.05% 1 SPRAY SPRAY.BTL 2 SPRAY NASAL (17:30)
--- NOTE | 2021-09-28 17:43 | NURSING ---
this rn attempted to insert ng into l nare. ng was difficult to advance into nare. was painful for pt and pt then started bleeding. pt refused ng
[2021-09-28] MEDS: 0.9% Normal Saline 1,000 ML 150 ML IV (18:38)
[2021-09-28] MEDS: 0.9% Saline Lock 10 ML Syringe IV (21:33)
[2021-09-29 01:26] LABS: Amphetamine Urine VISTA NEGATIVE (<1000 ng/mL); Barbiturate Urine VISTA NEGATIVE (< 200 ng/mL); Benzodiazepine Urine VISTA NEGATIVE (< 200 ng/mL); Cocaine Urine VISTA NEGATIVE (< 300 ng/mL); Ecstacy Urine VISTA NEGATIVE (< 500 ng/mL); Methadone Urine VISTA NEGATIVE (< 300 ng/mL); PCP Urine VISTA NEGATIVE (< 25 ng/mL); THC Urine VISTA NEGATIVE (< 50 ng/mL); Vista UDS pH Range 5
[2021-09-29] MEDS: 0.9% Normal Saline 1,000 ML 150 ML IV ×2 (02:03→09:21)
[2021-09-29 05:30] VITALS: BP 117/80; PULSE 80; RESP 16; TEMP 36.9; O2SAT 95
[2021-09-29 06:32] LABS: Absolute Lymphocyte Count 4.65 X10^3/uL (0.83-4.51); Absolute Neutrophil Count 7.2 X10^3/uL (2.0-7.7); Basophil# 0.09 X10^3/uL; Basophil% 0.7 % (0-1); Eosinophil# 0.13 X10^3/uL; Hematocrit 43.9 % (40-54); Hemoglobin 14.7 g/dL (13.0-16.5); Lymphocyte # 4.65 X10^3/ul (0.83-4.51); Lymphocyte % 34.2 % (19-41); Mean Corp Hgb Conc 33.5 g/dL (32-36); Mean Corpuscular Hgb 29.7 pg (27.0-32.0); Mean Corpuscular Volume 88.7 fL (80-94); Monocyte% 10.3 % (0-10); NRBC Flagged by Analyzer 0 % (0-5); Neutrophil # 7.18 X10^3/uL (2.7-7.7); Neutrophil % 52.8 % (47-70); Platelet Count 413 K/mm3 (150-450); RBC Distribution Width CV 12.7 % (11.6-14.6); RBC Distribution Width SD 41.5 fl (35.1-43.9); Red Blood Count 4.95 M/mm3 (4.6-6.2); White Blood Count 13.6 K/mm3 (4.4-11.0)
[2021-09-29 07:05] LABS: Anion Gap 8 (5-15); BUN 12 mg/dL (7-18); BUN/Creat Ratio 14.3 RATIO (10-20); Calcium,Total 8.8 mg/dL (8.5-10.1); Chloride 108 mmol/L (98-107); Creatinine, Serum 0.84 mg/dL (0.70-1.30); EST Glomerular Filtration Rate 112 mL/min (>60); Est Glom Filt Rate - Afr Amer 136 mL/min (>60); Estimated Creatinine Clearance 126.25 ml/min; Glucose 80 mg/dL (74-106); Potassium 3.9 mmol/L (3.5-5.1); Sodium Level 138 mmol/L (136-145)
[2021-09-29 07:44] VITALS: BP 171/98; PULSE 77; RESP 18; TEMP 36.9; O2SAT 98
[2021-09-29 07:48] VITALS: PULSE 77
[2021-09-29] MEDS: hydrALAZINE 20 MG/ML Vial 5 MG IV ×2 (07:48→11:49)
[2021-09-29] MEDS: Ondansetron 4 MG/2 ML Vial 8 MG IV (07:49)
[2021-09-29] MEDS: 0.9% Saline Lock 10 ML Syringe IV ×3 (07:49→14:24)
[2021-09-29 11:45] VITALS: BP 174/92; PULSE 77; RESP 18; TEMP 36.5; O2SAT 99
[2021-09-29 11:49] VITALS: PULSE 77
--- NOTE | 2021-09-29 11:54 | PCM.DC ---
Discharge Instructions Diet Discharge Diet: No restrictions Activity Discharge Activity: Return to Normal Activity Weight Bearing Status: Weight bearing as tolerated Dressing / Incision Call your doctor if you observe: Fever of 101 or Higher, Numbness or Tingling, Shortness of breath, Dizziness, Chest pain, Increased palpitations (irregular heartbeat) and Calf discomfort Follow Up Care Please Follow Up With: Primary care provider When: Within the next two weeks. Test Results: Test results from this visit will be discussed in further detail at your follow-up appointment, if applicable. Discharge Plan Admission Admit Date/Time: 09/28/21 17:01 Primary Reason for Your Visit: Intractable nausea and vomiting Attending Provider: Cuco Baker Primary Care Provider: Janet Maradiaga Consulting Providers: Angel Mendoza Additional Instructions / Restrictions: No high-fructose corn syrup Discharge Orders/Prescriptions Prescriptions: New buspirone 5 mg Tablet 5 mg PO TID Qty: 90 RF: 0 Continued amoxicillin-pot clavulanate 875-125 mg Tablet 1 tab PO BID RF: 0 Referrals / Follow Up: Janet Maradiaga PA [Primary Care Provider] - Within 2 Weeks Mendez Granados DO [STAFF PHYSICIAN] - See Referral Note (Call to establish appointment as an outpatient as soon as possible.) Disposition Disposition (needs filled in before D/C Order can be placed): Home, Self Care
--- NOTE | 2021-09-29 13:23 | CASEMGMT ---
Social Work Note Pt is listed as self-pay. SW attempted to speak with pt. Pt has guest present in room and guest informed this worker that pt is currently in the bathroom. SW left self-pay/financial resources on pt's table and informed pt's guest that if pt has questions or financial concerns he can ask to speak to SW. Erika Grewal [employer] [address], [employer] PROFESSOR
[2021-09-29] MEDS: Morphine 4 MG/ML Syringe IV (14:24)
--- NOTE | 2021-09-29 15:22 | PCM.CONS.GEN ---
Assessment & Plan Assessment/Plan (1) Abdominal pain of unknown etiology: PLAN: I believe that his pain is more functional and not organic. The differential diagnosis does include gastroparesis. However that would be idiopathic because he does not take any medicines and he has no history of diabetes mellitus. His pain does not sound structural meaning that it does not sound like atypical reflux or peptic ulcer disease or twisting of the GI tract such as volvulus or intussusception. Being that it sounds like it is functional abdominal pain I would recommend BuSpar 5 mg p.o. 3 times daily, Levsin 0.125 mg sublingual twice a day, as needed antinausea medicine with Reglan or Compazine. Also we can switch him to oral pain medicine for now. If he can tolerate this then he can be discharged to home. (2) Intractable nausea and vomiting: PLAN: At this time he is not experiencing any problems with nausea. He said his nausea only comes about when he has the pain. Hopefully if we can eliminate the pain then he will not need anything for it today nausea. HPI Consult Data Date of Consult: 09/29/21 HPI Narrative HPI Narrative: ANGELITO OCONNELL, is a 31 M who presents with generalized abdominal discomfort and bouts of nausea and vomiting. He has a couple year history of intermittent bouts of abdominal pain diffusely midepigastric nonradiating made worse by food. He has had biochemical and radiologic analysis did not shown any signs of acute abdomen. He has never had any abdominal surgeries. He has no family history of inflammatory bowel disease, celiac disease, H. pylori infection, gallstone disease. He is not having any problems with diarrhea or constipation. He denies any chest pain or shortness of breath. He denies any weakness. This admission he had CT scan abdomen pelvis did not show any acute abnormality. He has had ultrasound and HIDA scan of his gallbladder as per the patient without any signs of acute or chronic cholecystitis. At this time he denies any nausea but does complain of pain when eating. The pain does not radiate to his shoulder or back or distally. Right now he notices pain at a 9 out of 10.g. He states over the past 6 months to a year he has had recurrent bouts of nausea and vomiting abdominal pain. He reports he seen a nurse practitioner and been to the ER multiple times with no obvious cause for his symptoms. He states that over the past 2 to 3 days he has had increasing upper abdominal pain that is worse with eating and bouts of vomiting associated with this. He states that the pain is slowly increased and he is concerned about dehydration as he cannot keep any food or fluid down and therefore comes in for evaluation [facility] Medical History Hypertension Intractable nausea and vomiting Home Medications amoxicillin-pot clavulanate [Augmentin] 1 tab PO BID 09/28/21 [History Last Taken 09/28/21] Allergy/AdvReac Type Severity Reaction Status Date / Time No Known Allergies Allergy Verified 09/28/21 08:24 Family History no significant family his Surgical History no surgical history Social History Smoking Status: Current every day smoker tobacco type: e-cigarettes ROS Gastrointestinal Gastrointestinal: Reports abdominal pain and early satiety Physical Exam Const alert General Appearance: cooperative Orientation / Consciousness: oriented to person HEENT hearing grossly normal bilaterally Head and Scalp: normal to inspection Face and Sinus: face symmetric Nose: external nose normal Mouth: oral and palatal mucosa normal Eyes conjunctivae normal General Eye: normal appearance of both eyes Neck full ROM General: normal visual inspection Lymph Lymphatic: no lymphadenopathy noted Chest inspection of chest normal and palpation of chest normal Chest: symmetrical chest wall rise Resp normal respiratory effort Effort and Inspection: able to speak in complete sentences Cardio regular rate GI non-distended Percussion: normal to percussion Rectal Exam: deferred Neuro Speech: speech normal Gait (Neuro): normal gait Lab / Micro Data Result Diagrams: 09/29/21 05:26 09/29/21 05:26 Labs: Laboratory Results - last 24 hr 09/29/21 00:45: Urine Opiates Screen POSITIVE H, Urine Methadone Screen NEGATIVE, Ur Barbiturates Screen NEGATIVE, Ur Phencyclidine Scrn NEGATIVE, Ur Amphetamines Screen NEGATIVE, MDMA (Ecstasy) Screen NEGATIVE, U Benzodiazepines Scrn NEGATIVE, Urine Cocaine Screen NEGATIVE, U Cannabinoids Screen NEGATIVE, Ur Drug Screen Comment 09/29/21 05:26: WBC 13.6 H, RBC 4.95, Hgb 14.7, Hct 43.9, MCV 88.7, MCH 29.7, MCHC 33.5, RDW Std Deviation 41.5, RDW Coeff of Meño 12.7, Plt Count 413, MPV 9.0, Immature Gran % (Auto) 1.000 H, Neut % (Auto) 52.8, Lymph % (Auto) 34.2, [place] % (Auto) 10.3 H, Eos % (Auto) 1.0, Baso % (Auto) 0.7, Absolute Neuts (auto) 7.2, Absolute Lymphs (auto) 4.65 H, Nucleated RBC % 0 09/29/21 05:26: Sodium 138, Potassium 3.9, Chloride 108 H, Carbon Dioxide 22.0, Anion Gap 8, BUN 12, Creatinine 0.84, Estim Creat Clear Calc 126.25, Est GFR (MDRD) Af Amer 136, Est GFR (MDRD) Non-Af 112, BUN/Creatinine Ratio 14.3, Glucose 80, Calcium 8.8 Radiology Impression Abdomen/Pelvis CT 09/28/21 15:44 IMPRESSION: No acute findings in the abdomen or pelvis. Electronically Signed: Valdemar Ruiz MD at 16:33 EDT ,
--- NOTE | 2021-09-29 15:35 | DS.PCM_ITS ---
Documented by User: Prudencio SINGH 09/29/21 15:55 Providers Date of Admission: 09/28/21 Date of Discharge: 09/29/21 Primary Care Physician: FRANCISCO Ortega Consultations 09/28/21 18:26 Consult: Gastroenterology Routine Consulting Provider: Daniel Rasmussen Reason for Consult: persistent nausea and vomiting, abdominal pain EMERGENT Consult: No MD Notified: Yes Date Notified: 09/28/21 Time Notified: 17:08 Method of Notification: Verbal Reason For Visit: INTRACTABLE NAUSEA Diagnosis Discharge Diagnosis (1) Abdominal pain of unknown etiology: Status: Acute Code(s): R10.9 - Unspecified abdominal pain (2) Intractable nausea and vomiting: Status: Acute Code(s): R11.2 - Nausea with vomiting, unspecified Medications at Discharge Home Medications amoxicillin-pot clavulanate 1 tab PO BID 09/28/21 buspirone 5 mg PO TID #90 tab 09/29/21 hyoscyamine sulfate [Levsin] 0.125 mg PO BID #60 tab 09/29/21 Hospital Course Summary of Care Provided Minutes Spent on Discharge: 20 Hospital Course: Patient is a 31-year-old male who was admitted to [facility] on 09/28/2021 for evaluation and management of intractable nausea and vomiting. Hospital course and management as below. 1) intractable nausea and vomiting As of the time of my evaluation, patient reports that his nausea and vomiting have ceased. Patient seen and evaluated by Dr. Granados, who believes that his nausea and vomiting are brought on by patient's abdominal pain of unknown etiology. Dr. Granados recommends initiation of BuSpar and outpatient follow-up. Patient to follow-up with Dr. Granados within the next 2 weeks. 2) abdominal pain of unknown etiology Patient has had several CTs of the abdomen/pelvis in the past year, to include this admission, which have not revealed any organic reason for patient's abdominal pain. Will initiate BuSpar as above and have patient follow-up with Dr. Granados as above. 2) leukocytosis WBC is elevated at 13,000, likely reactionary secondary #1. Patient does not complain of nor does he display any infectious symptoms outside of the ones noted above. Vital signs stable and patient is afebrile. 3) NATTY Resolved, creatinine currently 0.84, likely the result of poor oral intake and nausea and vomiting seen on admission. Was given IV fluids throughout admission. 4) strep throat Augmentin continued on discharge, continue as noted by prescriber. Patient seen by Prudencio Shook PA-C, under the supervision of Dr. Baker. Time spent on patient care: 20 minutes. Physical Exam Narrative Patient is a 31-year-old male lying in bed, alert and orient x3. Patient reports that his nausea and vomiting have resolved. Denies development of any new symptoms overnight. Does not appear in acute distress. Const alert, oriented x3 and no apparent distress HEENT normocephalic, head/scalp atraumatic and hearing grossly normal bilaterally Eyes PERRL, EOMs intact bilaterally and conjunctivae normal Neck no lymphadenopathy, supple and no JVD Resp normal respiratory effort, no retractions and no use of accessory muscles Cardio regular rate, regular rhythm and no JVD GI normal to inspection, nondistended, normoactive bowel sounds and soft to palpation Extremity normal to inspection, full ROM and no clubbing, cyanosis or edema Skin no rashes or lesions noted, no wounds and skin turgor normal Neuro CN's II-XII intact bilaterally Psych affect normal Weight / BMI Weight Weight: 259 lb 14.8 oz Body Mass Index (BMI) 38.3 ABG / Lab / Microbiology Data Result Diagrams: 09/29/21 05:26 09/29/21 05:26 Laboratory: Laboratory Results - last 24 hr 09/29/21 00:45: Urine Opiates Screen POSITIVE H, Urine Methadone Screen NEGATIVE, Ur Barbiturates Screen NEGATIVE, Ur Phencyclidine Scrn NEGATIVE, Ur Amphetamines Screen NEGATIVE, MDMA (Ecstasy) Screen NEGATIVE, U Benzodiazepines Scrn NEGATIVE, Urine Cocaine Screen NEGATIVE, U Cannabinoids Screen NEGATIVE, Ur Drug Screen Comment 09/29/21 05:26: WBC 13.6 H, RBC 4.95, Hgb 14.7, Hct 43.9, MCV 88.7, MCH 29.7, MCHC 33.5, RDW Std Deviation 41.5, RDW Coeff of Meño 12.7, Plt Count 413, MPV 9.0, Immature Gran % (Auto) 1.000 H, Neut % (Auto) 52.8, Lymph % (Auto) 34.2, [place] % (Auto) 10.3 H, Eos % (Auto) 1.0, Baso % (Auto) 0.7, Absolute Neuts (auto) 7.2, Absolute Lymphs (auto) 4.65 H, Nucleated RBC % 0 09/29/21 05:26: Sodium 138, Potassium 3.9, Chloride 108 H, Carbon Dioxide 22.0, Anion Gap 8, BUN 12, Creatinine 0.84, Estim Creat Clear Calc 126.25, Est GFR (MDRD) Af Amer 136, Est GFR (MDRD) Non-Af 112, BUN/Creatinine Ratio 14.3, Glucose 80, Calcium 8.8 Radiography Diagnostic Testing: Radiology Impression Abdomen/Pelvis CT 09/28/21 15:44 IMPRESSION: No acute findings in the abdomen or pelvis. Electronically Signed: Valdemar Ruiz MD at 16:33 EDT , D/C Instructions Discharge Diet: No restrictions Weight Bearing Status: Weight bearing as tolerated Call your doctor if you observe: Fever of 101 or Higher, Numbness or Tingling, Shortness of breath, Dizziness, Chest pain, Increased palpitations (irregular heartbeat) and Calf discomfort Please Follow Up With: Primary care provider When: Within the next two weeks. Meaningful Use Info Meaningful Use Diagnoses (Choose all that apply): None applicable Discharge Plan Admission Admit Date/Time: 09/28/21 17:01 Primary Reason for Your Visit: Intractable nausea and vomiting Attending Provider: Cuco Baker Primary Care Provider: Janet Maradiaga Consulting Providers: Angel Mendoza Instructions Additional Instructions / Restrictions: No high-fructose corn syrup Discharge Orders/Prescriptions Prescriptions: New buspirone 5 mg Tablet 5 mg PO TID Qty: 90 RF: 0 hyoscyamine sulfate [Levsin] 0.125 mg tablet 0.125 mg PO BID Qty: 60 RF: 0 Continued amoxicillin-pot clavulanate 875-125 mg Tablet 1 tab PO BID RF: 0 Referrals / Follow Up: Mendez Granados DO [STAFF PHYSICIAN] - See Referral Note (Call to establish appointment as an outpatient as soon as possible.) Janet Maradiaga PA [Primary Care Provider] - Within 2 Weeks Disposition Disposition (needs filled in before D/C Order can be placed): Home, Self Care Documented by User: Dr. Cuco Baker DO 09/29/21 16:17 Providers Date of Admission: 09/28/21 Reason For Visit: INTRACTABLE NAUSEA Medications at Discharge Home Medications amoxicillin-pot clavulanate 1 tab PO BID 09/28/21 buspirone 5 mg PO TID #90 tab 09/29/21 hyoscyamine sulfate [Levsin] 0.125 mg PO BID #60 tab 09/29/21 Hospital Course Operations None Procedures None Summary of Care Provided Minutes Spent on Discharge: 24 Hospital Course: Patient seen and examined independently. Data and vitals reviewed. I agree with the above note by the physician bakery assistant. This is a 31-year-old male who presents with recurrent bouts of general nausea and vomiting. Patient that he would get these flareups and take several weeks to completely resolve. Patient had a CAT scan that was unremarkable. Previously had a HIDA scan that was negative. Patient was seen by gastroenterology and feels that its more of a functional process and recommended BuSpar, Levsin as well as antiemetics. I did recommend patient also stop consuming high fructose corn syrup. Patient drinks several 20ounce sodas per day. Physical Exam Const alert and no apparent distress Resp normal respiratory effort, no retractions, no use of accessory muscles and clear to auscultation bilaterally Cardio regular rate, regular rhythm, S1 normal heart sound and S2 normal heart sound GI normal to inspection, nondistended, normoactive bowel sounds, soft to palpation, non-tender and non-distended ABG / Lab / Microbiology Data Result Diagrams: 09/29/21 05:26 09/29/21 05:26 Discharge Plan Admission Admit Date/Time: 09/28/21 17:01 Primary Reason for Your Visit: Intractable nausea and vomiting Attending Provider: Cuco Baker Primary Care Provider: Janet Maradiaga Consulting Providers: Tereletsky,Angel Instructions Additional Instructions / Restrictions: No high-fructose corn syrup Discharge Orders/Prescriptions Prescriptions: New buspirone 5 mg Tablet 5 mg PO TID Qty: 90 RF: 0 hyoscyamine sulfate [Levsin] 0.125 mg tablet 0.125 mg PO BID Qty: 60 RF: 0 Continued amoxicillin-pot clavulanate 875-125 mg Tablet 1 tab PO BID RF: 0 Referrals / Follow Up: Mendez Granados DO [STAFF PHYSICIAN] - See Referral Note (Call to establish appointment as an outpatient as soon as possible.) Janet Maradiaga PA [Primary Care Provider] - Within 2 Weeks Disposition Disposition (needs filled in before D/C Order can be placed): Home, Self Care Charges/Coding Visit Charges OBSV E&M: 64461 Observation care discharge
[2021-09-29] MEDS: oxyCODONE HCl Cr 10 MG Tablet PO (16:25)
[2021-09-29] MEDS: Hyoscyamine Sulfate 0.125 MG Tablet SL (16:25)
[2021-09-29] MEDS: busPIRone 5 MG Tablet PO (16:26)
[2021-09-29 17:54] VITALS: PULSE 60; RESP 18; TEMP 36.7
== END 2021-09-29 19:35 | disposition home or self-care (01) ==
LOC: ED 16:48 → MS3 17:22
PROVIDERS: Internal Medicine Gastroenterology; Admitting Provider Internal Medicine; Emergency Provider Emergency Medicine; PCP Physician Assistant
DX: E86.0 Dehydration (principal); N17.9 Acute kidney failure, unspecified; R11.2 Nausea with vomiting, unspecified; I10 Essential (primary) hypertension; F17.290 Nicotine dependence, other tobacco product, uncomplicated; K76.0 Fatty (change of) liver, not elsewhere classified; R40.0 Somnolence; J02.0 Streptococcal pharyngitis; Z79.899 Other long term (current) drug therapy; R10.9 Unspecified abdominal pain
CPT/HCPCS: 36415; 74177; 76705; 80048; 80053; 80307; 83690; 85025; 94640; 96361; 96365; 96366; 96372; 96375; 96376; 97802; 99218; 99285; J7030; Q9967; A4216; G0378; J2405; J3490

== ENCOUNTER 2021-09-30 20:17 | Observation (INO) | payer BC, SELFPAY ==
[2021-09-30 20:17] VITALS: BP 189/90; PULSE 95; RESP 16; TEMP 37.1; O2SAT 97; BMI 39.1
[2021-09-30 21:02] LABS: Absolute Neutrophil Count 5.4 X10^3/uL (2.0-7.7); Basophil# 0.08 X10^3/uL; Basophil% 0.9 % (0-1); Eosinophil# 0.09 X10^3/uL; Hematocrit 48.4 % (40-54); Hemoglobin 16.3 g/dL (13.0-16.5); Lymphocyte % 26.7 % (19-41); Mean Corp Hgb Conc 33.7 g/dL (32-36); Mean Corpuscular Hgb 29.1 pg (27.0-32.0); Mean Corpuscular Volume 86.4 fL (80-94); Mean Platelet Vol. 8.9 fl (6.2-12.0); Monocyte# 0.87 X10^3/uL; Monocyte% 9.7 % (0-10); NRBC Flagged by Analyzer 0 % (0-5); Neutrophil # 5.44 X10^3/uL (2.7-7.7); Neutrophil % 60.5 % (47-70); Platelet Count 433 K/mm3 (150-450); RBC Distribution Width CV 12.5 % (11.6-14.6); RBC Distribution Width SD 39.3 fl (35.1-43.9)
--- NOTE | 2021-09-30 21:15 | EDS_ITS ---
HPI HPI - GI History of Present Illness Chief Complaint: Abd Pain Detail of Chief Complaint: Abdominal pain and vomiting Informant: patient Narrative Narrative: Patient presents to the emergency department complaint of abdominal pain and vomiting that started this afternoon. Patient states that he was admitted with same complaint 2 days ago. Patient gets episodes like this several times a year. Patient had a CAT scan of his abdomen pelvis 2 days ago that was unremarkable. Patient was discharged yesterday evening. Patient was to stay on clear liquids and when he try to eat this afternoon he had more pain in the epigastric region and started vomiting and threw up about 4 5 times. Patient denies any fevers. He is not had prior abdominal surgeries. He was seen by GI in the the hospital and they discussed possibly doing an EGD as an outpatient. Patient has never been diagnosed with cyclic vomiting syndrome. Prior similar symptoms: [facility] Medical History (Updated 09/30/21 @ 23:[address] Sharee Martin, DO) Hypertension Intractable nausea and vomiting Home Medications amoxicillin-pot clavulanate 1 tab PO BID 09/28/21 [History Last Taken 09/28/21] buspirone 5 mg PO TID #90 tab 09/29/21 [Rx Last Taken Unknown] hyoscyamine sulfate [Levsin] 0.125 mg PO BID #60 tab 09/29/21 [Rx Last Taken Unknown] Allergy/AdvReac Type Severity Reaction Status Date / Time No Known Allergies Allergy Verified 09/30/21 20:19 Social History Smoking Status: Current every day smoker tobacco type: e-cigarettes ROS ROS ED Constitutional Constitutional ED: Reports systems reviewed and no addt'l complaints, except as documented; Denies body ache(s), change in weight or chills Eyes Eyes: Denies acute decrease in peripheral vision, change in vision, double vision or loss of vision ENT ENT ED: Reports none; Denies ear pain, lip swelling, loss taste/smell, neck pain, otalgia or sore throat Cardiovascular Cardiovascular: Reports none; Denies abdominal pain, chest pain with activity, leg edema, lightheadedness, palpitations, rapid heart rate or syncope Respiratory/Chest Respiratory/Chest: Reports none; Denies change in mental status, dry cough, dyspnea, hemoptysis, shortness of breath at rest or shortness of breath with exertion Gastrointestinal Gastrointestinal: Reports none, abdominal pain, nausea and vomiting; Denies change in stool character, diarrhea, hematemesis, hematochezia, melena or rectal bleeding Genitourinary Genitourinary ED: Reports none; Denies abdominal discomfort, anuria, dysuria, genital pain or polyuria Musculoskeletal Musculoskeletal: Reports none; Denies arthralgias, back pain, difficulty walking, extremity pain, muscle weakness or myalgias Integumentary Reports none; Denies abscess or rash Neurologic Neurologic: Reports none; Denies abnormal gait, confusion, focal weakness, frequent falls, headache(s), loss of vision, numbness, paresthesias, radicular pain, vertigo or weakness Psychiatric Psychiatric: Reports systems reviewed and no addt'l complaints, except as documented and none; Denies behavioral changes, confusion, difficulty concentrating, hallucinations, suicidal ideation, tactile hallucinations or visual hallucinations Endocrine Endocrinology: Denies none, cold intolerance, excessive sweating, fatigue or heat intolerance Hematologic/Lymphatic Hematologic/Lymphatic: Reports none; Denies anemia, easy bleeding or easy bruising Allergic/Immunologic Allergic/Immunologic ED: Denies as per HPI, none, lip swelling, mouth swelling, throat swelling, tongue swelling or hives EXAM Physical Exam Const Vital Signs: 09/30/21 20:17 09/30/21 23:02 Temperature 98.8 F Temperature Source Temporal Pulse Rate 95 79 Respiratory Rate 16 18 Blood Pressure 189/90 H 187/102 H Blood Pressure Mean 123 130 Pulse Ox 97 Oxygen Delivery Method Room Air Positive well nourished and well developed General Appearance ED: well developed and NAD HEENT Reports TM's clear and moist mucous membranes normocephalic and atraumatic; Negative for trauma or tenderness Tympanic Membrane ED: Yes TM's clear Eyes PERRL and EOMs intact bilaterally General Eye ED: Negative for pale conjunctiva or scleral icterus Neck no lymphadenopathy, supple and no JVD General: Negative for tenderness Chest Wall inspection of chest normal and palpation of chest normal Chest: Negative for tenderness Resp normal respiratory effort and clear to auscultation bilaterally Effort and Inspection: Negative for respiratory distress or pain with movement Auscultation: Negative for rhonchi, wheezes or diminished lung sounds Cardio regular rate, regular rhythm, S1 normal heart sound, S2 normal heart sound and no murmurs Peripheral Pulses: pulses 2+ throughout GI normal to inspection, nondistended, normoactive bowel sounds, soft to palpation, non-distended and no masses GI Narrative: Patient with some mild tenderness over the epigastric region with some mild guarding. There is no rebound, rigidity, or frail signs. Palpation: tender Back/Spine no CVA tenderness and no thoracic nor lumbar tenderness Extremity normal to inspection General Extremety ED: Negative for edema General Extremity: Negative for edema Neuro oriented x3, CN's II-XII intact bilaterally, no sensory deficits noted and gait normal Sensorium / Orientation: awake, alert, oriented to person, oriented to place and oriented to time Motor Exam: strength 5/5 throughout and strength abnormal Psych mental status grossly normal Skin no rashes or lesions noted and no wounds MDM MDM MDM Narrative Medical decision making narrative: IV line established on arrival. Patient was given Zofran as well as Protonix 40 mg IV and lorazepam 1 mg IV. Patient continued to complain of nausea and significant pain. He was given Dilaudid 1 mg IV. Patient continues to complain of pain. Lab work-up was unremarkable. Patient had a CT scan of his abdomen pelvis 2 days ago that was unremarkable. Case was discussed with GI Dr. Granados who recommended admission for symptom control and he can see the patient tomorrow and do an EGD tomorrow. Case discussed with hospitalist will evaluate patient for admission for intractable abdominal pain and nausea and vomiting. Lab Data Attestation: I reviewed the patient's lab results. Labs: Laboratory Results - last 24 hr 09/30/21 09/30/21 09/30/21 20:32 20:32 20:32 WBC 9.0 RBC 5.60 Hgb 16.3 Hct 48.4 MCV 86.4 MCH 29.1 MCHC 33.7 RDW Std Deviation 39.3 RDW Coeff of Meño 12.5 Plt Count 433 MPV 8.9 Immature Gran % (Auto) 1.200 H Neut % (Auto) 60.5 Lymph % (Auto) 26.7 [place] % (Auto) 9.7 Eos % (Auto) 1.0 Baso % (Auto) 0.9 Absolute Neuts (auto) 5.4 Absolute Lymphs (auto) 2.40 Nucleated RBC % 0 Sodium 139 Potassium 3.7 Chloride 106 Carbon Dioxide 24.0 Anion Gap 9 BUN 16 Creatinine 1.14 Estim Creat Clear Calc 93.03 Est GFR (MDRD) Af Amer 95 Est GFR (MDRD) Non-Af 79 BUN/Creatinine Ratio 14.0 Glucose 146 H Calcium 9.3 Total Bilirubin 0.40 AST 18 ALT 49 Alkaline Phosphatase 59 Total Protein 8.2 Albumin 3.6 Globulin 4.6 H Albumin/Globulin Ratio 0.8 L Lipase 203 Discharge Plan Triage Chief Complaint: Abd Pain ED Provider: Sharee Martin Dx/Rx/DC Orders Clinical Impression: Intractable abdominal pain, Nausea & vomiting Prescriptions: No Action amoxicillin-pot clavulanate 875-125 mg Tablet 1 tab PO BID RF: 0 buspirone 5 mg Tablet 5 mg PO TID Qty: 90 RF: 0 hyoscyamine sulfate [Levsin] 0.125 mg tablet 0.125 mg PO BID Qty: 60 RF: 0 Primary Care Provider: Janet Maradiaga Referrals: Janet Maradiaga PA [Primary Care Provider] - Disposition Disposition: Acute Care [facility]
[2021-09-30 21:16] LABS: ALB/GLOB Ratio 0.8 RATIO (0.9-2.4); AST(SGOT) 18 U/L (15-37); Alanine Aminotransfer ALT/SGPT 49 U/L (16-61); Albumin, Serum 3.6 g/dL (3.2-5.0); Alkaline Phosphatase 59 U/L (45-117); Anion Gap 9 (5-15); BUN 16 mg/dL (7-18); Calcium,Total 9.3 mg/dL (8.5-10.1); Chloride 106 mmol/L (98-107); Creatinine, Serum 1.14 mg/dL (0.70-1.30); EST Glomerular Filtration Rate 79 mL/min (>60); Est Glom Filt Rate - Afr Amer 95 mL/min (>60); Estimated Creatinine Clearance 93.03 ml/min; Globulin 4.6 g/dL (2.2-4.2); Glucose 146 mg/dL (74-106); Potassium 3.7 mmol/L (3.5-5.1); Protein, Total 8.2 g/dL (6.4-8.2); Sodium Level 139 mmol/L (136-145)
[2021-09-30] MEDS: 0.9% Normal Saline 1,000 ML 1000 ML IV (21:29)
[2021-09-30] MEDS: Ondansetron 4 MG/2 ML Vial IV (21:29)
[2021-09-30] MEDS: LORazepam 2 MG/ML Syringe 1 MG IV (21:29)
[2021-09-30 21:46] LABS: Lipase 203 U/L (73-393)
[2021-09-30] MEDS: HYDROmorphone 1 MG/ML Syringe IV (23:01)
[2021-09-30 23:02] VITALS: BP 187/102; PULSE 79; RESP 18
--- NOTE | 2021-09-30 23:31 | PCM.HP.STD ---
HPI - General General Date of Admission: 09/30/21 HPI Narrative ANGELITO OCONNELL, is a 31 M who with a significant history of hypertension who was discharged from the hospital presenting again to the ED within 24 hours of presentation. Patient presents with the same symptoms for which he was previously admitted for. His complaints nausea, vomiting and excruciating epigastric pain. Reportedly he left the hospital on clear liquids that he was given finding it difficult to tolerate. At home he ate few bites of hotdogs and his symptoms worsened. Patient has been having nausea vomiting and abdominal pain for about a year and 1/2 to 2 years. No etiology of his symptoms was found. On his most recent admission patient was placed on Levsin and buspirone. He reported that he was compliant with these medications however his symptoms persisted. Patient is on Augmentin for strep pharyngitis. [facility] Medical History Hypertension Intractable nausea and vomiting Home Medications amoxicillin-pot clavulanate 1 tab PO BID 09/28/21 [History Last Taken 09/28/21] buspirone 5 mg PO TID #90 tab 09/29/21 [Rx Last Taken Unknown] hyoscyamine sulfate [Levsin] 0.125 mg PO BID #60 tab 09/29/21 [Rx Last Taken Unknown] Allergy/AdvReac Type Severity Reaction Status Date / Time No Known Allergies Allergy Verified 09/30/21 20:19 Family History Other Diabetes Surgical History no surgical history no surgical history Social History Smoking Status: Current every day smoker tobacco type: e-cigarettes ROS ROS Narrative Pertinent positives and pertinent negatives as noted in HPI. All other systems were reviewed and are negative. Vital Signs Vital Signs Vital Signs: 09/30/21 20:17 09/30/21 23:02 Temperature 98.8 F Temperature Source Temporal Pulse Rate 95 79 Respiratory Rate 16 18 Blood Pressure 189/90 H 187/102 H Blood Pressure Mean 123 130 Pulse Ox 97 Oxygen Delivery Method Room Air Weight Weight: 120.202 kg Body Mass Index (BMI) 39.1 Physical Exam Narrative Physical exam: General: Well-nourished, well-developed. Head: Normocephalic, atraumatic, no tenderness Eyes: Vision is grossly intact. EOMI ENT, no trauma, moist mucous membranes, no rhinorrhea Neck: Nontender, full range of motion, no spinal tenderness, deformities, step-off CVS: Regular rate and rhythm. S1-S2 present. No murmur, gallop or rub. Respiratory : clear to auscultation bilaterally, chest wall nontender, no wheezing Abdomen: Soft, nontender, nondistended, normal bowel sounds, no masses : Deferred Back: Nontender, no CVA tenderness, no midline spinal tenderness, deformities, step-offs Extremities: Nontender full range of motion, no trauma Skin: Normal color, no trauma, abrasions Neuro: Alert, oriented, cranial nerves II through XII grossly intact. Psychiatry: Normal mood. Normal affect. Not depressed. Not anxious. Results Lab / Micro Data Result Diagrams: 09/30/21 20:32 09/30/21 20:32 Labs: Laboratory Results - last 24 hr 09/30/21 20:32: WBC 9.0, RBC 5.60, Hgb 16.3, Hct 48.4, MCV 86.4, MCH 29.1, MCHC 33.7, RDW Std Deviation 39.3, RDW Coeff of Meño 12.5, Plt Count 433, MPV 8.9, Immature Gran % (Auto) 1.200 H, Neut % (Auto) 60.5, Lymph % (Auto) 26.7, [place] % (Auto) 9.7, Eos % (Auto) 1.0, Baso % (Auto) 0.9, Absolute Neuts (auto) 5.4, Absolute Lymphs (auto) 2.40, Nucleated RBC % 0 09/30/21 20:32: Sodium 139, Potassium 3.7, Chloride 106, Carbon Dioxide 24.0, Anion Gap 9, BUN 16, Creatinine 1.14, Estim Creat Clear Calc 93.03, Est GFR (MDRD) Af Amer 95, Est GFR (MDRD) Non-Af 79, BUN/Creatinine Ratio 14.0, Glucose 146 H, Calcium 9.3, Total Bilirubin 0.40, AST 18, ALT 49, Alkaline Phosphatase 59, Total Protein 8.2, Albumin 3.6, Globulin 4.6 H, Albumin/Globulin Ratio 0.8 L 09/30/21 20:32: Lipase 203 Assessment & Plan Assessment/Plan (1) Intractable abdominal pain: (2) Nausea & vomiting: QUALIFIERS: Vomiting type: unspecified Qualified Code(s): R11.2 - Nausea with vomiting, unspecified PLAN: Intractable abdominal pain, nausea and vomiting. CBC on presentation showed normal white count but with bandemia of 1.2%. Hemoglobin is normal. BMP on presentation was unremarkable CT of abdomen and pelvis obtained on 09/26/2019 was visualized and independently interpreted. I agree radiology interpretation of no acute findings in the pelvis or abdomen. Emergent department doctor discussed the case with glass wool blanket machine feeder who is considering EGD. Will keep patient n.p.o. Supportive treatment with normal saline, IV Dilaudid for pain, IV Zofran for antiemetics. Trend CBC and BMP. Hypertensive urgency Likely pain contributing. Highest systolic blood pressure of 189. PRN IV Hydralazine ordered. Trend blood pressure and adjust blood pressure medications. Obesity : BMI: 38.2kg/m?. Complicates care. Lifestyle modification recommended. Strep pharyngitis: While n.p.o. Augmentin has been changed to cefazolin. DVT prophylaxis: SCD Charges/Coding Visit Charges OBSV E&M: 33437 Initial observation care L3
[2021-09-30 23:48] VITALS: BP 187/102; PULSE 79; RESP 18; TEMP 37.1; O2SAT 97
[2021-09-30 23:57] VITALS: BMI 38.2
[2021-10-01] VITALS (7 sets, daily range): BP systolic 140–189; BP diastolic 71–113; PULSE 65–83; RESP 16–20; TEMP 36.5–36.9; O2SAT 96–98; BMI 38.2
[2021-10-01] MEDS: hydrALAZINE 20 MG/ML Vial 10 MG IV (00:43)
[2021-10-01] MEDS: HYDROmorphone 0.5 MG/0.5 ML SYRINGE IV ×4 (00:43→23:29)
[2021-10-01] MEDS: 0.9% Normal Saline 1,000 ML 100 ML IV ×3 (00:43→13:41)
[2021-10-01] MEDS: 0.9% Saline Lock 10 ML Syringe IV ×5 (00:44→23:29)
[2021-10-01] MEDS: Ondansetron 4 MG/2 ML Vial IV ×2 (01:37→13:41)
[2021-10-01] MEDS: Cefazolin 1 GM/50 ML BAG IV ×4 (01:43→21:52)
[2021-10-01 07:31] LABS: Absolute Lymphocyte Count 2.45 X10^3/uL (0.83-4.51); Absolute Neutrophil Count 7.1 X10^3/uL (2.0-7.7); Basophil# 0.06 X10^3/uL; Basophil% 0.6 % (0-1); Eosinophil# 0.01 X10^3/uL; Eosinophils% 0.1 % (0-5); Lymphocyte # 2.45 X10^3/ul (0.83-4.51); Lymphocyte % 23.2 % (19-41); Mean Corp Hgb Conc 33.3 g/dL (32-36); Mean Corpuscular Hgb 29.1 pg (27.0-32.0); Mean Corpuscular Volume 87.4 fL (80-94); Monocyte# 0.86 X10^3/uL; Monocyte% 8.1 % (0-10); NRBC Flagged by Analyzer 0 % (0-5); Neutrophil % 67.1 % (47-70); Platelet Count 428 K/mm3 (150-450); RBC Distribution Width CV 12.3 % (11.6-14.6); RBC Distribution Width SD 39.8 fl (35.1-43.9); Red Blood Count 5.15 M/mm3 (4.6-6.2); White Blood Count 10.6 K/mm3 (4.4-11.0)
[2021-10-01 08:05] LABS: Anion Gap 9 (5-15); BUN 10 mg/dL (7-18); BUN/Creat Ratio 13.1 RATIO (10-20); Calcium,Total 8.8 mg/dL (8.5-10.1); Chloride 107 mmol/L (98-107); Creatinine, Serum 0.77 mg/dL (0.70-1.30); EST Glomerular Filtration Rate 125 mL/min (>60); Est Glom Filt Rate - Afr Amer 151 mL/min (>60); Estimated Creatinine Clearance 137.73 ml/min; Glucose 101 mg/dL (74-106); Potassium 3.8 mmol/L (3.5-5.1); Sodium Level 138 mmol/L (136-145)
--- NOTE | 2021-10-01 15:00 | PN.HOSP_ITS ---
Documented by User: Prudencio SINGH 10/01/21 15:07 Subjective Subjective Patient is a 31-year-old male resting in bed, alert and orient x3. Patient reports that he has not vomited about 6 hours, reports that his abdomen is tender from retching but is bearable. Denies any fever or chills. Objective Data Objective Data Vital Signs: Vital Signs Temp Pulse Resp BP Pulse Ox 97.8 F 70 18 140/71 H 98 10/01/21 14:10 10/01/21 14:10 10/01/21 14:10 10/01/21 14:10 10/01/21 14:10 Oxygen Delivery Method Room Air Weight: 258 lb 15.985 oz Body Mass Index (BMI) 38.2 Intake & Output: Intake and Output for Last 24 Hours 09/29/21 09/30/21 10/01/21 23:59 23:59 23:59 Intake Total 2508.34 / 2508.34 Balance 2508.34 / 2508.34 Medical Nutrition Assessment Dietitian: Malnutrition Criteria Met Start: 10/01/21 12:16 Freq: Status: Active Protocol: Document 10/01/21 12:16 RMA (Rec: 10/01/21 12:16 RMA [id number]) Nutrition Malnutrition Evidence of Malnutrition Exists Yes Malnutrition (severe): Acute Illness/Injury Evidenced By Suboptimal Energy Intake ( Severe),Weight Loss (Severe) Intake Problem Inadequate Oral Intake Etiology related to altered GI function Signs/Symptoms as evidenced by NPO Status Active Problem Clinical Problem Acute Disease or Injury Related Malnutrition Etiology Severe protein-calorie malnutrition in the context of acute illness related to inadequate oral intake and altered GI function/N/V/abd pain Signs/Symptoms as evidenced by NPO, ~3% wt loss x 1 week and no significant PO x past 1 week as per patient report Status Active Problem Recommendation Dietitian Recommendations/Changes Recommend advance diet as medically able to clear/full liquids as tolerated with goal of Transitional/Regular diet. Offer ensure clear as indicated as diet advanced from NPO post EGD. Diet education as needed depending on findings of EGD. Lab / Micro Data Result Diagrams: 10/01/21 06:44 10/01/21 06:44 Labs: Laboratory Results - last 24 hr 09/30/21 20:32: WBC 9.0, RBC 5.60, Hgb 16.3, Hct 48.4, MCV 86.4, MCH 29.1, MCHC 33.7, RDW Std Deviation 39.3, RDW Coeff of Meño 12.5, Plt Count 433, MPV 8.9, Immature Gran % (Auto) 1.200 H, Neut % (Auto) 60.5, Lymph % (Auto) 26.7, [place] % (Auto) 9.7, Eos % (Auto) 1.0, Baso % (Auto) 0.9, Absolute Neuts (auto) 5.4, Absolute Lymphs (auto) 2.40, Nucleated RBC % 0 09/30/21 20:32: Sodium 139, Potassium 3.7, Chloride 106, Carbon Dioxide 24.0, Anion Gap 9, BUN 16, Creatinine 1.14, Estim Creat Clear Calc 93.03, Est GFR (MDRD) Af Amer 95, Est GFR (MDRD) Non-Af 79, BUN/Creatinine Ratio 14.0, Glucose 146 H, Calcium 9.3, Total Bilirubin 0.40, AST 18, ALT 49, Alkaline Phosphatase 59, Total Protein 8.2, Albumin 3.6, Globulin 4.6 H, Albumin/Globulin Ratio 0.8 L 09/30/21 20:32: Lipase 203 10/01/21 06:44: WBC 10.6, RBC 5.15, Hgb 15.0, Hct 45.0, MCV 87.4, MCH 29.1, MCHC 33.3, RDW Std Deviation 39.8, RDW Coeff of Meño 12.3, Plt Count 428, MPV 9.0, Immature Gran % (Auto) 0.900, Neut % (Auto) 67.1, Lymph % (Auto) 23.2, [place] % (Auto) 8.1, Eos % (Auto) 0.1, Baso % (Auto) 0.6, Absolute Neuts (auto) 7.1, Absolute Lymphs (auto) 2.45, Nucleated RBC % 0 10/01/21 06:44: Sodium 138, Potassium 3.8, Chloride 107, Carbon Dioxide 22.0, Anion Gap 9, BUN 10, Creatinine 0.77, Estim Creat Clear Calc 137.73, Est GFR (MDRD) Af Amer 151, Est GFR (MDRD) Non-Af 125, BUN/Creatinine Ratio 13.1, Glucose 101, Calcium 8.8 Physical Exam Const alert, oriented x3 and no apparent distress HEENT head/scalp atraumatic and moist oral mucous membranes Head and Scalp: normocephalic Eyes PERRL, EOMs intact bilaterally and conjunctivae normal Neck no lymphadenopathy, supple and no JVD Resp normal respiratory effort, no retractions and no use of accessory muscles Cardio regular rate, regular rhythm and no JVD GI normal to inspection, nondistended, normoactive bowel sounds Inspection: central obesity Palpation: tender Extremity normal to inspection, full ROM and no clubbing, cyanosis or edema Skin no rashes or lesions noted, no wounds and skin turgor normal Neuro CN's II-XII intact bilaterally Psych affect normal Assessment & Plan Assessment/Plan (1) Intractable abdominal pain: (2) Intractable nausea and vomiting: (3) Abdominal pain of unknown etiology: PLAN: Day 1 Discharge planning: To discharge home when medically ready. 1) intractable nausea and vomiting Unclear etiology, recently discharged for the same. Symptoms returned overnight. GI consulted while in the ED, patient to undergo EGD either today or 10/02. We will continue IV fluids, continue cefazolin and as needed medications. 2) intractable abdominal pain Plan; as above. 3) HTN Elevated, but stable. As needed hydralazine ordered. DVT prophylaxis - low risk, not indicated Patient seen by Prudencio Shook PA-C, under the supervision of Dr. Baker. Time spent on patient care: 9 minutes. Documented by User: Dr. Cuco Baker, DO 10/01/21 15:14 Subjective Subjective Was doing well up until he had a little bit of a hot dog. States that he was not having any sodas when he went home and still continues to deny any illicit drug use, including marijuana. Objective Data Lab / Micro Data Result Diagrams: 10/01/21 06:44 10/01/21 06:44 Physical Exam Const alert and no apparent distress Resp normal respiratory effort, no retractions, no use of accessory muscles and clear to auscultation bilaterally Cardio regular rate, regular rhythm, S1 normal heart sound and S2 normal heart sound GI normal to inspection, nondistended, normoactive bowel sounds, soft to palpation, non-tender and non-distended Neuro Sensorium / Orientation: awake and alert Psych affect normal Assessment & Plan Assessment/Plan (1) Intractable abdominal pain: (2) Abdominal pain of unknown etiology: PLAN: Patient seen and examined independently. Data and vitals reviewed. I agree with the above note by the physician financial legal assistant. 1. Intractable nausea and vomiting Etiology still unclear. Patient states that he was not consuming high fructose corn syrup. Even though this not highly likely etiology for the symptoms I did advise it when he went home so that could be least removed as a possibility. Patient states that he did not have any sugary beverages it was just drinking water when he went home. I still do advise that he avoid sugary beverages upon discharge just to help with his overall health and obesity. GI is on consult. Tentative plan for EGD today. It is unclear if it is going to be a matter of trial and error in regards to dietary modifications. 2. Recent strep throat Was on Augmentin. Currently on cefazolin. Patient was having symptoms before starting the Augmentin so I do not feel that this was a reaction to the a ntibiotic. Greater than 20 minutes spent reviewing the data, the chart, discussing with the patient and examining the patient. Charges/Coding Visit Charges OBSV E&M: 88778 Subsequent observation care L2
--- NOTE | 2021-10-01 17:08 | PCM.CONS.GEN ---
Assessment & Plan Assessment/Plan (1) Intractable abdominal pain: PLAN: We will perform an upper endoscopy tomorrow to look for organic disease. If the test is normal then we may have to get an gastric emptying study or a upper GI series with small bowel follow-through to see if there is any narrowing or stricturing disease distantly passed with the scope cannot see. I do not suspect that this is acalculus cholecystitis or biliary colic as his ultrasound of the liver did not show any signs of gallbladder disease. HPI Consult Data Date of Consult: 10/01/21 HPI Narrative HPI Narrative: ANGELITO OCONNELL, is a 31 M who presents Patient presents to the emergency department complaint of abdominal pain and vomiting that started this afternoon. Patient states that he was admitted with same complaint 2 days ago. Patient gets episodes like this several times a year. Patient had a CAT scan of his abdomen pelvis 2 days ago that was unremarkable. Patient was discharged yesterday evening. Patient was to stay on clear liquids and when he try to eat this afternoon he had more pain in the epigastric region and started vomiting and threw up about 4 5 times. Patient denies any fevers. Patient says that when he got home he tried to eat and the pain immediately came back. He denies any chest pain or shortness of breath. In the ED his blood pressure was 180s over 100 with a heart rate from the low 70s to high 90s. He does have a past medical history of high blood pressure. He denied any drug usage. He does not take any nonsteroidals. [facility] Medical History Hypertension Intractable nausea and vomiting Home Medications amoxicillin-pot clavulanate 1 tab PO BID 09/28/21 [History Last Taken 09/28/21] buspirone 5 mg PO TID #90 tab 09/29/21 [Rx Last Taken Unknown] hyoscyamine sulfate [Levsin] 0.125 mg PO BID #60 tab 09/29/21 [Rx Last Taken Unknown] Allergy/AdvReac Type Severity Reaction Status Date / Time No Known Allergies Allergy Verified 09/30/21 20:19 Family History Other Diabetes Surgical History no surgical history Social History (Updated 10/01/21 @ 00:16 by Ragini Adorno) household members: none Smoking Status: Current every day smoker tobacco type: e-cigarettes ROS Gastrointestinal Gastrointestinal: Reports abdominal pain Medical Records Data Medical Nutrition Assessment Dietitian: Malnutrition Criteria Met Start: 10/01/21 12:16 Freq: Status: Active Protocol: Document 10/01/21 12:16 RMA (Rec: 10/01/21 12:16 RMA [id number]) Nutrition Malnutrition Evidence of Malnutrition Exists Yes Malnutrition (severe): Acute Illness/Injury Evidenced By Suboptimal Energy Intake ( Severe),Weight Loss (Severe) Intake Problem Inadequate Oral Intake Etiology related to altered GI function Signs/Symptoms as evidenced by NPO Status Active Problem Clinical Problem Acute Disease or Injury Related Malnutrition Etiology Severe protein-calorie malnutrition in the context of acute illness related to inadequate oral intake and altered GI function/N/V/abd pain Signs/Symptoms as evidenced by NPO, ~3% wt loss x 1 week and no significant PO x past 1 week as per patient report Status Active Problem Recommendation Dietitian Recommendations/Changes Recommend advance diet as medically able to clear/full liquids as tolerated with goal of Transitional/Regular diet. Offer ensure clear as indicated as diet advanced from NPO post EGD. Diet education as needed depending on findings of EGD. Lab / Micro Data Result Diagrams: 10/01/21 06:44 10/01/21 06:44 Labs: Laboratory Results - last 24 hr 09/30/21 20:32: WBC 9.0, RBC 5.60, Hgb 16.3, Hct 48.4, MCV 86.4, MCH 29.1, MCHC 33.7, RDW Std Deviation 39.3, RDW Coeff of Meño 12.5, Plt Count 433, MPV 8.9, Immature Gran % (Auto) 1.200 H, Neut % (Auto) 60.5, Lymph % (Auto) 26.7, [place] % (Auto) 9.7, Eos % (Auto) 1.0, Baso % (Auto) 0.9, Absolute Neuts (auto) 5.4, Absolute Lymphs (auto) 2.40, Nucleated RBC % 0 09/30/21 20:32: Sodium 139, Potassium 3.7, Chloride 106, Carbon Dioxide 24.0, Anion Gap 9, BUN 16, Creatinine 1.14, Estim Creat Clear Calc 93.03, Est GFR (MDRD) Af Amer 95, Est GFR (MDRD) Non-Af 79, BUN/Creatinine Ratio 14.0, Glucose 146 H, Calcium 9.3, Total Bilirubin 0.40, AST 18, ALT 49, Alkaline Phosphatase 59, Total Protein 8.2, Albumin 3.6, Globulin 4.6 H, Albumin/Globulin Ratio 0.8 L 09/30/21 20:32: Lipase 203 10/01/21 06:44: WBC 10.6, RBC 5.15, Hgb 15.0, Hct 45.0, MCV 87.4, MCH 29.1, MCHC 33.3, RDW Std Deviation 39.8, RDW Coeff of Meño 12.3, Plt Count 428, MPV 9.0, Immature Gran % (Auto) 0.900, Neut % (Auto) 67.1, Lymph % (Auto) 23.2, [place] % (Auto) 8.1, Eos % (Auto) 0.1, Baso % (Auto) 0.6, Absolute Neuts (auto) 7.1, Absolute Lymphs (auto) 2.45, Nucleated RBC % 0 10/01/21 06:44: Sodium 138, Potassium 3.8, Chloride 107, Carbon Dioxide 22.0, Anion Gap 9, BUN 10, Creatinine 0.77, Estim Creat Clear Calc 137.73, Est GFR (MDRD) Af Amer 151, Est GFR (MDRD) Non-Af 125, BUN/Creatinine Ratio 13.1, Glucose 101, Calcium 8.8 Charges/Coding Visit Charges Inpatient E&M: 77896 Init Hosp L2
[2021-10-01] MEDS: proCHLORPERazine 10 MG/2 ML Vial 5 MG IV (20:28)
[2021-10-02] VITALS (16 sets, daily range): BP systolic 121–188; BP diastolic 77–115; PULSE 50–109; RESP 14–19; TEMP 36.4–37.2; O2SAT 96–100; BMI 38.2
--- NOTE | 2021-10-02 | GASB_PTH ---
PATIENT: ANGELITO OCONNELL LOC: [facility] U#:[id number] AGE/SX: 31/M ROOM: [facility] RE09/30/[address]: Dr. Roselia Garner MD : 1990 BED: 1 DIS: 10/03/2021 SPEC #: [id number] RECD: 10/02/21 16:48 STATUS: REY REBella #: [id number] LADY: 10/02/21 00:[address]: Mendez Granados DEPT: SURGICAL PATHOLOGY RECD BY: Tristen De La Torre ENTERED: 10/03/21 09:11 SP TYPE: Gastric Bx OTHR DR: DO Dr. Aayush Arita MD Dr. Nana Yaa Koram, MD Dr. Rahsaan Friend, DO Rayanne Robinson, PA Tissues: A - Gastric mucous membrane B - Duodenum, NOS C - Esophageal mucous membrane Procedures: Special Stain Group II Surgery Specimen Level IV Alcian Blue/PAS (control) Comments: @ Ordering doctor for SUIV edited from to @ by RGOOD at 10/03/21 141 @ Submitting doctor edited from to @ by RGOOD at 10/03/21 1412 HEADER OPERATION: EGD ([facility]), biopsy PRE-OP DIAGNOSIS: Intractable abdominal pain TISSUE SUBMITTED: A ? Antrum biopsy for histo and H. pylori, B ? Duodenum biopsy, C ? Distal esophagus biopsy MICROSCOPIC DIAGNOSIS A. Gastric antrum, biopsy: Chronic gastritis. See comment. B. Duodenum, biopsy: Mild nonspecific chronic inflammation. C. Distal esophagus, biopsy: Gastroesophageal junctional mucosa with mild chronic inflammation. No evidence of goblet cell metaplasia. See comment. AM:robel 10/04/2021 COMMENT A. The results of immunohistochemistry for Helicobacter pylori will be reported separately ([id number]). C. Alcian blue/PAS stain with matched control supports the above diagnosis. MICROSCOPIC DESCRIPTION Slides are reviewed. GROSS DESCRIPTION A - Received in fixative is one container labeled with the patient's name and designated antrum biopsy. The specimen consists of multiple irregular fragments of light meza soft tissue that in aggregate measure 1 x 0.5 x 0.1 cm. The specimen is totally submitted in one cassette. B - Received in fixative is one container labeled with the patient's name and designated duodenum biopsy. The specimen consists of multiple irregular fragments of light meza soft tissue that in aggregate measure 0.6 x 0.4 x 0.1 cm. The specimen is totally submitted in one cassette. C - Received in fixative is one container labeled with the patient's name and designated distal esophagus biopsy. The specimen consists of two irregular fragments of light meza soft tissue that in aggregate measure 0.7 x 0.4 x 0.1 cm. The specimen is totally submitted in one cassette. / SJ:rg 10/04/2021 TC:3 CPT: 76350 x3, 35616
[2021-10-02] MEDS: 0.9% Normal Saline 1,000 ML 100 ML IV ×2 (01:05→13:53)
[2021-10-02] MEDS: Cefazolin 1 GM/50 ML BAG IV (06:08)
[2021-10-02] MEDS: Ondansetron 4 MG/2 ML Vial IV ×2 (06:14→18:20)
[2021-10-02] MEDS: HYDROmorphone 0.5 MG/0.5 ML SYRINGE IV (06:14)
[2021-10-02] MEDS: 0.9% Saline Lock 10 ML Syringe IV ×3 (06:14→21:09)
--- NOTE | 2021-10-02 10:36 | NURSING ---
report called to Carmen in ac
[2021-10-02] MEDS: Lactated Ringers 1,000 ML 15 ML IV (10:57)
--- NOTE | 2021-10-02 11:30 | IMM_PTH ---
PATIENT: ANGELITO OCONNELL LOC: [facility] U#:[id number] AGE/SX: 31/M ROOM: [facility] RE09/30/[address]: Dr. Roselia Garner MD : 1990 BED: 1 DIS: 10/03/2021 SPEC #: [id number] RECD: 10/03/21 12:36 STATUS: REY REQ #: [id number] LADY: 10/02/21 11:[address]: Mendez Granados DEPT: IMMUNOHISTOCHEMISTRY RECD BY: Analy Guerra ENTERED: 10/03/21 12:37 SP TYPE: IMMUNO OTHR DR: DO Dr. Aayush Arita MD Dr. Nana Yaa Koram, MD Rayanne Robinson, PA Tissues: A - Stomach, NOS Procedures: H Pylori (initial) PHYSICIAN & INSTITUTION [place] [id number] SPECIMEN INFORMATION: Tissue Source: A ? Antrum biopsy Clinical Info: Intractable abdominal pain Specimen Number: [id number] CPT code: 46547 METHODOLOGY: Deparaffinized sections of prefer/formalin-fixed tissue or PAP/DQ stained slides are incubated with monoclonal/polyclonal antibodies/oligonucleotide probes. Localization is made via biotin free immunoperoxidase method. Appropriate controls are performed and reacted as expected. Results on target cell population are indicated in the following table: RESULTS: ANTIBODY / CLONE RESULT Block A H Pylori (polyclonal) negative These tests were developed and their performance characteristics determined by [facility]. They may not have been cleared or approved by the U.S. Food and Drug Administration. The FDA has determined that such clearance or approval is not necessary. The above immunohistochemical/dualISH markers are ordered and reviewed by the Pathologist. INTERPRETATION: A. Antrum, biopsy: Negative for Helicobacter pylori organisms. AM:robel 10/04/2021
--- NOTE | 2021-10-02 12:47 | OP.EGD_ITS ---
Patient Name: David Maradiaga Procedure Date: 10/02/2021 12:13 PM Date of : 1990 Age: 31 Procedure: Upper GI endoscopy Indications: Epigastric abdominal pain Providers: Mendez Granados DO Medicines: Monitored Anesthesia Care Patient Profile: This is a 31 year old male. Refer to note in patient chart for documentation of history and physical. Patient has symptoms of chronic epigastric abdominal pain. Complications: No immediate complications. Procedure: Pre-Anesthesia Assessment: - Prior to the procedure, a History and Physical was performed, and patient medications and allergies were reviewed. The patient is competent. The risks and benefits of the procedure and the sedation options and risks were discussed with the patient. All questions were answered and informed consent was obtained. Patient identification and proposed procedure were verified by the physician in the pre-procedure area. Mental Status Examination: alert and oriented. Airway Examination: normal oropharyngeal airway and neck mobility. Respiratory Examination: clear to auscultation. CV Examination: normal. Prophylactic Antibiotics: The patient does not require prophylactic antibiotics. Prior Anticoagulants: The patient has taken no previous anticoagulant or antiplatelet agents. ASA Grade Assessment: II - A patient with mild systemic disease. After reviewing the risks and benefits, the patient was deemed in satisfactory condition to undergo the procedure. The anesthesia plan was to use moderate sedation / analgesia (conscious sedation). Immediately prior to administration of medications, the patient was re-assessed for adequacy to receive sedatives. The heart rate, respiratory rate, oxygen saturations, blood pressure, adequacy of pulmonary ventilation, and response to care were monitored throughout the procedure. The physical status of the patient was re-assessed after the procedure. After obtaining informed consent, the endoscope was passed under direct vision. Throughout the procedure, the patient's blood pressure, pulse, and oxygen saturations were monitored continuously. The gastroscope was introduced through the mouth, and advanced to the second part of duodenum. The upper GI endoscopy was accomplished without difficulty. The patient tolerated the procedure well. Scope In: 12:33:40 PM Scope Out: 12:40:21 PM Total Procedure Duration Time 0 hours 6 minutes 41 seconds Findings: LA Grade A (one or more mucosal breaks less than 5 mm, not extending between tops of 2 mucosal folds) esophagitis with no bleeding was found 38 to 40 cm from the incisors. Biopsies were taken with a cold forceps for histology. Verification of patient identification for the specimen was done. Estimated blood loss was minimal. Scattered moderate inflammation characterized by erosions and erythema was found in the gastric antrum. Biopsies were taken with a cold forceps for histology. Verification of patient identification for the specimen was done. Estimated blood loss was minimal. Patchy mildly erythematous mucosa without active bleeding and with no stigmata of bleeding was found in the duodenal bulb. Biopsies were taken with a cold forceps for histology. Verification of patient identification for the specimen was done. Estimated blood loss was minimal. Impression: - LA Grade A reflux esophagitis. Rule out Ga's esophagus. Biopsied. - Gastritis. Biopsied. - Erythematous duodenopathy. Biopsied. Recommendation: - Return patient to [facility] for [facility] care. - Advance diet as tolerated. - Continue present medications. - Await pathology results. -H. pylori treatment-amoxicillin 500 mg twice daily, clarithromycin 500 mg twice daily, Flagyl 500 mg twice daily, pantoprazole 40 mg twice daily, Pepto-Bismol 4 times a day. This regimen is for 2 weeks. Procedure Code(s): --- Professional --- 54120, Esophagogastroduodenoscopy, flexible, transoral; with biopsy, single or multiple CPT copyright 2017 [employer]. All rights reserved. The codes documented in this report are preliminary and upon load out person review may be revised to meet current compliance requirements. Mendez Granados DO 10/02/2021 12:47:07 PM This report has been signed electronically. Number of Addenda: 1 Note Initiated On: 10/02/2021 12:13 PM Addendum Number: 1 Addendum Date: 02/15/2022 6:22:02 AM MAC was used as sedation for this procedure. Mendez Granados DO 02/15/2022 6:22:06 AM This report has been signed electronically.
--- NOTE | 2021-10-02 12:48 | OP.CCLET_ITS ---
02/15/2022 Janet Maradiaga Re : Upper GI endoscopy procedure for David Millanr Hiren This procedure was performed on Saturday, October 02, 2021. My impressions and recommendations are as follows: Impressions : - LA Grade A reflux esophagitis. Rule out Ga's esophagus. Biopsied. - Gastritis. Biopsied. - Erythematous duodenopathy. Biopsied. Recommendations : - Return patient to [facility] for ongoing care. - Advance diet as tolerated. - Continue present medications. - Await pathology results. -H. pylori treatment-amoxicillin 500 mg twice daily, clarithromycin 500 mg twice daily, Flagyl 500 mg twice daily, pantoprazole 40 mg twice daily, Pepto-Bismol 4 times a day. This regimen is for 2 weeks. My findings are described in the full procedure note, which is enclosed. If I can be of further assistance, please feel free to contact me at . Sincerely, Mendez Granados, 10/02/2021 12:47:07 PM This report has been signed electronically.
[2021-10-02] MEDS: proCHLORPERazine 10 MG/2 ML Vial 5 MG IV ×2 (14:21→21:06)
--- NOTE | 2021-10-02 14:44 | PCM.DC ---
Discharge Instructions Diet Discharge Diet: No restrictions Activity Discharge Activity: Return to Normal Activity Weight Bearing Status: Weight bearing as tolerated Dressing / Incision Call your doctor if you observe: Fever of 101 or Higher, Numbness or Tingling, Shortness of breath, Dizziness, Chest pain, Increased palpitations (irregular heartbeat) and Calf discomfort Follow Up Care Please Follow Up With: Primary care provider When: Within the next two weeks. Test Results: Test results from this visit will be discussed in further detail at your follow-up appointment, if applicable. Discharge Plan Admission Admit Date/Time: 09/30/21 23:32 Primary Reason for Your Visit: Nausea and vomiting Attending Provider: Roselia Garner Primary Care Provider: Janet Maradiaga Consulting Providers: Mendez Granados ; Aayush Man ; Cuco Baker Discharge Orders/Prescriptions Prescriptions: New amoxicillin 500 mg Capsule 500 mg PO Q12 Qty: 28 RF: 0 clarithromycin 250 mg Tablet 500 mg PO BIDCM Qty: 28 RF: 0 metronidazole 500 mg Tablet 500 mg PO BIDCM Qty: 28 RF: 0 pantoprazole 40 mg Tablet,Delayed Release (Dr/Ec) 40 mg PO BID Qty: 60 RF: 0 Continued amoxicillin-pot clavulanate 875-125 mg Tablet 1 tab PO BID RF: 0 buspirone 5 mg Tablet 5 mg PO TID Qty: 90 RF: 0 hyoscyamine sulfate [Levsin] 0.125 mg tablet 0.125 mg PO BID Qty: 60 RF: 0 Referrals / Follow Up: Mendez Granados DO [STAFF PHYSICIAN] - Within 2 Weeks Janet Maradiaga PA [Primary Care Provider] - Within 2 Weeks Disposition Disposition (needs filled in before D/C Order can be placed): Home, Self Care
--- NOTE | 2021-10-02 15:21 | DS.PCM_ITS ---
Documented by User: Prudencio SINGH 10/02/21 18:09 Providers Date of Admission: 09/30/21 Date of Discharge: 10/02/21 Primary Care Physician: FRANCISCO Ortega Consultations 10/01/21 00:06 Consult: Gastroenterology Routine Consulting Provider: Mendez Granados Reason for Consult: Intractable abdominal pain EMERGENT Consult: No MD Notified: Yes Date Notified: 09/30/21 Time Notified: 23:29 Method of Notification: notified via ED physician Reason For Visit: INTRACTABLE ABDOMINAL PAIN, NAUSEA AND VOMITING Diagnosis Discharge Diagnosis (1) Intractable abdominal pain: Status: Acute Code(s): R10.9 - Unspecified abdominal pain Medications at Discharge Home Medications buspirone 5 mg PO TID #90 tab 09/29/21 hyoscyamine sulfate [Levsin] 0.125 mg PO BID #60 tab 09/29/21 amoxicillin 500 mg PO Q12 #28 cap 10/02/21 clarithromycin 500 mg PO BIDCM #28 tab 10/02/21 lisinopril 40 mg PO DAILY #30 tab 10/02/21 metronidazole 500 mg PO BIDCM #28 tab 10/02/21 pantoprazole 40 mg PO BID #60 tab 10/02/21 Hospital Course Summary of Care Provided Minutes Spent on Discharge: 20 Hospital Course: Patient is a 31-year-old male who was admitted to [facility] on 09/30/2021 for evaluation management of abdominal pain with intractable nausea and vomiting. Hospital course and management as below. 1) intractable nausea and vomiting Patient underwent EGD per GI which demonstrated grade a reflux esophagitis, biopsies taken to rule out Ga's esophagus. Gastritis and erythematous duodenopathy observed, biopsies taken. Recommendations are to initiate quad therapy for possible H. pylori infection: Initiate amoxicillin 5 mg p.o. twice daily, clarithromycin 500 mg p.o. twice daily, Flagyl 500 mg p.o. twice daily, PPI 40 mg p.o. twice daily and Pepto-Bismol 4 times daily. This regimen to be initiated for 2 weeks. 2) intractable abdominal pain Plan; as above. 3) HTN Elevated, but stable. Prescription filled for lisinopril 40 mg daily, patient to follow-up with primary care for follow-up prescription. Patient seen by Prudencio Shook PA-C, under the supervision of Dr. Garner Time spent on patient care: 20 minutes. Physical Exam Narrative Patient is a 31-year-old male comfortably resting in bed, alert and orient x3. Patient still with intermittent nausea and vomiting, although this is improved. Does not appear in acute distress. Const alert, oriented x3 and no apparent distress HEENT normocephalic, head/scalp atraumatic and hearing grossly normal bilaterally Eyes PERRL, EOMs intact bilaterally and conjunctivae normal Neck no lymphadenopathy, supple and no JVD Resp normal respiratory effort, no retractions and no use of accessory muscles Cardio regular rate, regular rhythm and no JVD GI normal to inspection, nondistended, normoactive bowel sounds and soft to palpation Inspection: central obesity Extremity normal to inspection, full ROM and no clubbing, cyanosis or edema Skin no rashes or lesions noted, no wounds and skin turgor normal Neuro CN's II-XII intact bilaterally Psych affect normal Medical Records Data Medical Nutrition Assessment Dietitian: Malnutrition Criteria Met Start: 10/01/21 12 :16 Freq: Status: Active Protocol: Document 10/01/21 12:16 RMA (Rec: 10/01/21 12:16 RMA [id number]) Nutrition Malnutrition Evidence of Malnutrition Exists Yes Malnutrition (severe): Acute Illness/Injury Evidenced By Suboptimal Energy Intake ( Severe),Weight Loss (Severe) Intake Problem Inadequate Oral Intake Etiology related to altered GI function Signs/Symptoms as evidenced by NPO Status Active Problem Clinical Problem Acute Disease or Injury Related Malnutrition Etiology Severe protein-calorie malnutrition in the context of acute illness related to inadequate oral intake and altered GI function/N/V/abd pain Signs/Symptoms as evidenced by NPO, ~3% wt loss x 1 week and no significant PO x past 1 week as per patient report Status Active Problem Recommendation Dietitian Recommendations/Changes Recommend advance diet as medically able to clear/full liquids as tolerated with goal of Transitional/Regular diet. Offer ensure clear as indicated as diet advanced from NPO post EGD. Diet education as needed depending on findings of EGD. Weight / BMI Weight Weight: 258 lb 15.985 oz Body Mass Index (BMI) 38.2 ABG / Lab / Microbiology Data Result Diagrams: 10/01/21 06:44 10/01/21 06:44 D/C Instructions Discharge Diet: No restrictions Weight Bearing Status: Weight bearing as tolerated Call your doctor if you observe: Fever of 101 or Higher, Numbness or Tingling, Shortness of breath, Dizziness, Chest pain, Increased palpitations (irregular heartbeat) and Calf discomfort Please Follow Up With: Primary care provider When: Within the next two weeks. Meaningful Use Info Meaningful Use Diagnoses (Choose all that apply): None applicable Discharge Plan Admission Admit Date/Time: 09/30/21 23:32 Primary Reason for Your Visit: Nausea and vomiting Attending Provider: Roselia Garner Primary Care Provider: Janet Maradiaga Consulting Providers: Mendez Granados ; Aayush Man ; Cuco Baker Instructions Additional Instructions / Restrictions: * duplication specialist Pepto-Bismol over the counter at your local pharmacy. Take 4 times daily for 2 weeks. Discharge Orders/Prescriptions Prescriptions: New amoxicillin 500 mg Capsule 500 mg PO Q12 Qty: 28 RF: 0 clarithromycin 250 mg Tablet 500 mg PO BIDCM Qty: 28 RF: 0 metronidazole 500 mg Tablet 500 mg PO BIDCM Qty: 28 RF: 0 pantoprazole 40 mg Tablet,Delayed Release (Dr/Ec) 40 mg PO BID Qty: 60 RF: 0 lisinopril 40 mg tablet 40 mg PO DAILY Qty: 30 RF: 0 Continued buspirone 5 mg Tablet 5 mg PO TID Qty: 90 RF: 0 hyoscyamine sulfate [Levsin] 0.125 mg tablet 0.125 mg PO BID Qty: 60 RF: 0 Discontinued amoxicillin-pot clavulanate 875-125 mg Tablet 1 tab PO BID RF: 0 Referrals / Follow Up: Mendez Granados DO [STAFF PHYSICIAN] - Within 2 Weeks Janet Maradiaga PA [Primary Care Provider] - Within 2 Weeks Disposition Disposition (needs filled in before D/C Order can be placed): Home, Self Care Documented by User: Dr. Roselia Garner MD 10/02/21 16:31 Providers Date of Admission: 09/30/21 Reason For Visit: INTRACTABLE ABDOMINAL PAIN, NAUSEA AND VOMITING Medications at Discharge Home Medications buspirone 5 mg PO TID #90 tab 09/29/21 hyoscyamine sulfate [Levsin] 0.125 mg PO BID #60 tab 09/29/21 amoxicillin 500 mg PO Q12 #28 cap 10/02/21 clarithromycin 500 mg PO BIDCM #28 tab 10/02/21 lisinopril 40 mg PO DAILY #30 tab 10/02/21 metronidazole 500 mg PO BIDCM #28 tab 10/02/21 pantoprazole 40 mg PO BID #60 tab 10/02/21 ABG / Lab / Microbiology Data Result Diagrams: 10/01/21 06:44 10/01/21 06:44 Discharge Plan Admission Admit Date/Time: 09/30/21 23:32 Primary Reason for Your Visit: Nausea and vomiting Attending Provider: Roselia Garner Primary Care Provider: Janet Maradiaga Consulting Providers: Mendez Granados ; Aayush Man ; Cuco Baker Instructions Additional Instructions / Restrictions: * duplication specialist Pepto-Bismol over the counter at your local pharmacy. Take 4 times daily for 2 weeks. Discharge Orders/Prescriptions Prescriptions: New amoxicillin 500 mg Capsule 500 mg PO Q12 Qty: 28 RF: 0 clarithromycin 250 mg Tablet 500 mg PO BIDCM Qty: 28 RF: 0 metronidazole 500 mg Tablet 500 mg PO BIDCM Qty: 28 RF: 0 pantoprazole 40 mg Tablet,Delayed Release (Dr/Ec) 40 mg PO BID Qty: 60 RF: 0 lisinopril 40 mg tablet 40 mg PO DAILY Qty: 30 RF: 0 Continued buspirone 5 mg Tablet 5 mg PO TID Qty: 90 RF: 0 hyoscyamine sulfate [Levsin] 0.125 mg tablet 0.125 mg PO BID Qty: 60 RF: 0 Discontinued amoxicillin-pot clavulanate 875-125 mg Tablet 1 tab PO BID RF: 0 Referrals / Follow Up: Mendez Granados DO [STAFF PHYSICIAN] - Within 2 Weeks Janet Maradiaga PA [Primary Care Provider] - Within 2 Weeks Disposition Disposition (needs filled in before D/C Order can be placed): Home, Self Care Charges/Coding Addendum Addendum: Patient seen by Prudencio Shook PA-C under my supervision Patient is a 31-year-old male with past medical history as outlined was admitted through the ED on 10/01/2021 with a complaint of abdominal pain, nausea and vomiting. He had been seen in the ED about 2 days prior to admission with similar complaints and says he has had such episodes throughout the year. CT of the abdomen and pelvis showed no acute abdominal pathology. He was discharged home from the ED 2 days prior to admission but pain and vomiting persisted so he was brought back to the ED. He was admitted to be managed for intractable abdominal pain. Gastroenterology was consulted and he had EGD on 10/02/2021 which showed gastritis and reflux esophagitis. Patient felt much better afterwards and was started on a diet which he tolerated. Patient wanted to go home so was discharged home on 10/02/2021 and is follow-up with his primary care doctor and follow-up with gastroenterology on outpatient basis. He was discharged home on H. pylori treatment namely amoxicillin 500 mg twice daily, clarithromycin 500 mg twice daily as well as Flagyl 500 mg twice daily and also pantoprazole 40 mg twice daily for 2 weeks. He was also discharged on Pepto- Bismol. He is follow-up with his primary care doctor and gastroenterology within 2 to 3 weeks. Patient was seen and examined prior to discharge. Abdominal pain had improved markedly. He had no active complaints and review of systems otherwise negative. Labs and vitals reviewed. Home medication reviewed and reconciled. O/E: Const alert, oriented x3 and no apparent distress General Appearance: cooperative HEENT normocephalic, head/scalp atraumatic, hearing grossly normal bilaterally and moist oral mucous membranes Eyes PERRL, EOMs intact bilaterally and conjunctivae normal Neck no lymphadenopathy, supple and no JVD Resp normal respiratory effort and clear to auscultation bilaterally Cardio regular rate, regular rhythm, S1 normal heart sound, S2 normal heart sound and no murmurs GI normal to inspection, nondistended, normoactive bowel sounds and soft to palpation Extremity normal to inspection, full ROM and no clubbing, cyanosis or edema Skin no rashes or lesions noted Neuro oriented x3, CN's II-XII intact bilaterally and moves all extremities Sensorium / Orientation: awake and alert Psych affect normal Plan is for discharge home as above. Rest as per Prudencio Shook, PA-C'snotes are reviewed and endorsed. Total time I spent on discharge today 28 minutes with Prudencio Shook spending 20 minutes making a total of 48 minutes. Visit Charges Inpatient E&M: 59566 Disch Hosp
--- NOTE | 2021-10-02 15:39 | CASEMGMT ---
Patient indicated to RN that he does not have insurance. He has not picked up his medications due to not having insurance. THAI spoke with Jeramie at [facility]. Jeramie ran patient's prescriptions through the insurance that is listed and patient is covered. Patient's co-pay is $37.01. HTAI notified patient and RN. Windy PERKINS
[2021-10-02] MEDS: Pantoprazole Sodium 40 MG Tablet PO ×2 (16:09→21:06)
[2021-10-02] MEDS: metroNIDAZOLE 500 MG Tablet PO (16:09)
[2021-10-02] MEDS: AMOXICILLIN 500 MG CAPSULE PO ×2 (16:09→22:35)
[2021-10-02] MEDS: Lisinopril 40 MG Tablet PO (16:13)
--- NOTE | 2021-10-02 18:09 | PN.HOSP_ITS ---
Documented by User: Prudencio SINGH 10/02/21 18:10 Subjective Subjective Patient is a 31-year-old male, lying in bed with postoperative EGD pain. Still with nausea and vomiting. Objective Data Objective Data Vital Signs: Vital Signs Temp Pulse Resp BP Pulse Ox 97.8 F 85 14 164/89 H 97 10/02/21 17:49 10/02/21 17:49 10/02/21 17:49 10/02/21 17:49 10/02/21 17:49 Oxygen Delivery Method Room Air Weight: 258 lb 15.985 oz Body Mass Index (BMI) 38.2 Intake & Output: Intake and Output for Last 24 Hours 09/30/21 10/01/21 10/02/21 23:59 23:59 23:59 Intake Total 3450.01 / 3450.01 2360 / 2360 Output Total 1350 / 1350 Balance 3450.01 / 3450.01 1010 / 1010 Medical Nutrition Assessment Dietitian: Malnutrition Criteria Met Start: 10/01/21 12:16 Freq: Status: Active Protocol: Document 10/01/21 12:16 RMA (Rec: 10/01/21 12:16 RMA [id number]) Nutrition Malnutrition Evidence of Malnutrition Exists Yes Malnutrition (severe): Acute Illness/Injury Evidenced By Suboptimal Energy Intake ( Severe),Weight Loss (Severe) Intake Problem Inadequate Oral Intake Etiology related to altered GI function Signs/Symptoms as evidenced by NPO Status Active Problem Clinical Problem Acute Disease or Injury Related Malnutrition Etiology Severe protein-calorie malnutrition in the context of acute illness related to inadequate oral intake and altered GI function/N/V/abd pain Signs/Symptoms as evidenced by NPO, ~3% wt loss x 1 week and no significant PO x past 1 week as per patient report Status Active Problem Recommendation Dietitian Recommendations/Changes Recommend advance diet as medically able to clear/full liquids as tolerated with goal of Transitional/Regular diet. Offer ensure clear as indicated as diet advanced from NPO post EGD. Diet education as needed depending on findings of EGD. Lab / Micro Data Result Diagrams: 10/01/21 06:44 10/01/21 06:44 Physical Exam Const alert, oriented x3 and no apparent distress HEENT head/scalp atraumatic and moist oral mucous membranes Head and Scalp: normocephalic Eyes PERRL, EOMs intact bilaterally and conjunctivae normal Neck no lymphadenopathy, supple and no JVD Resp normal respiratory effort, no retractions and no use of accessory muscles Cardio regular rate, regular rhythm and no JVD GI normal to inspection, nondistended, normoactive bowel sounds and soft to palpation Extremity normal to inspection and full ROM Skin no rashes or lesions noted, no wounds and skin turgor normal Neuro CN's II-XII intact bilaterally Psych affect normal Assessment & Plan Assessment/Plan (1) Intractable abdominal pain: (2) Nausea & vomiting: QUALIFIERS: Vomiting type: unspecified Qualified Code(s): R11.2 - Nausea with vomiting, unspecified PLAN: Day 2 of Discharge planning: Current plan is for patient to discharge home on 10/03. 1) intractable nausea and vomiting Patient underwent EGD per GI which demonstrated grade a reflux esophagitis, biopsies taken to rule out Ga's esophagus. Gastritis and erythematous duodenopathy observed, biopsies taken. Recommendations are to initiate quad therapy for possible H. pylori infection: Initiate amoxicillin 5 mg p.o. twice daily, clarithromycin 500 mg p.o. twice daily, Flagyl 500 mg p.o. twice daily, PPI 40 mg p.o. twice daily and Pepto-Bismol 4 times daily. This regimen to be initiated for 2 weeks. 2) intractable abdominal pain Plan; as above. 3) HTN Elevated, but stable. Prescription filled for lisinopril 40 mg daily, patient to follow-up with primary care for follow-up prescription. Patient seen by Prudencio Shook PA-C, under the supervision of Dr. Garner Time spent on patient care: 10 minutes. Documented by User: Dr. Roselia Garner MD 10/03/21 07:35 Objective Data Lab / Micro Data Result Diagrams: 10/01/21 06:44 10/01/21 06:44 Charges/Coding Addendum Addendum: Late entry note for 10/02/2021 Patient was seen by Prudencio Shook PA-C under my supervision Patient seen and examined. His abdominal pain had improved. He had no active complaints and he was for EGD today. He did have EGD which showed esophagitis and gastritis. He was due to be discharged home, but didnt feel comfortable going home as he still felt nauseous, so discharge was cancelled. O/E: Const alert, oriented x3 and no apparent distress General Appearance: cooperative HEENT normocephalic, head/scalp atraumatic, hearing grossly normal bilaterally and moist oral mucous membranes Eyes PERRL, EOMs intact bilaterally and conjunctivae normal Neck no lymphadenopathy, supple and no JVD Resp normal respiratory effort and clear to auscultation bilaterally Cardio regular rate, regular rhythm, S1 normal heart sound, S2 normal heart sound and no murmurs GI normal to inspection, nondistended, normoactive bowel sounds and soft to palpation Extremity normal to inspection, full ROM and no clubbing, cyanosis or edema Skin no rashes or lesions noted Neuro oriented x3, CN's II-XII intact bilaterally and moves all extremities Sensorium / Orientation: awake and alert Psych affect normal Assessment and plan #Intractable nausea and vomiting * EGD showed gastritis and esophagitis * patient started on amoxicillin, clarithromycin, flagyl and PPI as well as pepto-bismol for 2 weeks. * GI on board. * #Hypertension: BP was elevated. He was on lisinopril, but had not been taking his meds. Will resume lisinopril 40mg daily. DVT prophylaxis; SCDs Disposition: for discharge home tomorrow * Visit Charges Inpatient E&M: 92800 Subs Hosp L2
[2021-10-02] MEDS: Acetaminophen 325 MG Tablet 650 MG PO (18:20)
[2021-10-02] MEDS: oxyCODONE 5 MG Tablet PO (22:34)
[2021-10-03 03:22] VITALS: BP 122/76; PULSE 76; RESP 18; TEMP 36.2; O2SAT 100
[2021-10-03 08:11] VITALS: BP 125/71; PULSE 75; RESP 12; TEMP 36.6; O2SAT 99
[2021-10-03] MEDS: AMOXICILLIN 500 MG CAPSULE PO (08:13)
[2021-10-03] MEDS: Lisinopril 40 MG Tablet PO (08:13)
[2021-10-03] MEDS: metroNIDAZOLE 500 MG Tablet PO (08:13)
[2021-10-03] MEDS: Pantoprazole Sodium 40 MG Tablet PO (08:30)
--- NOTE | 2021-10-03 10:39 | PCM.DC.SUM ---
Documented by User: Prudencio SINGH 10/03/21 11:15 Providers Date of Admission: 09/30/21 Date of Discharge: 10/03/21 Primary Care Physician: FRANCISCO Ortega Consultations 10/01/21 00:06 Consult: Gastroenterology Routine Consulting Provider: Mendez Granados Reason for Consult: Intractable abdominal pain EMERGENT Consult: No MD Notified: Yes Date Notified: 09/30/21 Time Notified: 23:29 Method of Notification: notified via ED physician Reason For Visit: INTRACTABLE ABDOMINAL PAIN, NAUSEA AND VOMITING Diagnosis Discharge Diagnosis (1) Intractable abdominal pain: Status: Acute Code(s): R10.9 - Unspecified abdominal pain (2) Nausea & vomiting: Status: Acute Code(s): R11.2 - Nausea with vomiting, unspecified Qualifiers: Vomiting type: unspecified Qualified Code(s): R11.2 - Nausea with vomiting, unspecified Medications at Discharge Home Medications amoxicillin 500 mg PO Q12 #28 cap 10/02/21 clarithromycin 500 mg PO BIDCM #28 tab 10/02/21 lisinopril 40 mg PO DAILY #30 tab 10/02/21 metronidazole 500 mg PO BIDCM #28 tab 10/02/21 pantoprazole 40 mg PO BID #60 tab 10/02/21 buspirone 5 mg PO TID 10/03/21 hyoscyamine sulfate [Levsin] 0.125 mg PO BID 10/03/21 Hospital Course Procedures EGD Summary of Care Provided Minutes Spent on Discharge: 20 Hospital Course: Patient is a 31-year-old male who was admitted to [facility] on 09/30/2021 for evaluation management of intractable nausea and vomiting. Hospital course and management as below. 1) intractable nausea and vomiting Patient underwent EGD per GI which demonstrated grade a reflux esophagitis, biopsies taken to rule out Ga's esophagus. Gastritis and erythematous duodenopathy observed, biopsies taken. Recommendations are to initiate quad therapy for possible H. pylori infection: Initiate amoxicillin 5 mg p.o. twice daily, clarithromycin 500 mg p.o. twice daily, Flagyl 500 mg p.o. twice daily, PPI 40 mg p.o. twice daily and Pepto-Bismol 4 times daily. This regimen to be initiated for 2 weeks. Follow-up with Dr. Dominguez within the next 2 weeks. 2) intractable abdominal pain Plan; as above. 3) HTN Elevated, but stable. Prescription filled for lisinopril 40 mg daily, patient to follow-up with primary care for follow-up prescription. Patient seen by Prudencio Shook PA-C, under the supervision of Dr. Garner Time spent on patient care: 20 minutes. Physical Exam Narrative Patient is a 32-year-old male, comfortably resting in bed, alert and orient x3. Patient reports that his abdominal pain and nausea vomiting significantly improved overnight. Denies development of any new symptoms overnight. Const alert, oriented x3 and no apparent distress HEENT normocephalic, head/scalp atraumatic and hearing grossly normal bilaterally Eyes PERRL, EOMs intact bilaterally and conjunctivae normal Neck no lymphadenopathy, supple and no JVD Resp normal respiratory effort, no retractions and no use of accessory muscles Cardio regular rate, regular rhythm and no JVD GI normal to inspection, nondistended, normoactive bowel sounds and soft to palpation Extremity normal to inspection, full ROM and no clubbing, cyanosis or edema Skin no rashes or lesions noted, no wounds and skin turgor normal Neuro CN's II-XII intact bilaterally Psych affect normal Medical Records Data Medical Nutrition Assessment Dietitian: Malnutrition Criteria Met Start: 10/01/21 12:16 Freq: Status: Active Protocol: Document 10/01/21 12:16 RMA (Rec: 10/01/21 12:16 RMA [id number]) Nutrition Malnutrition Evidence of Malnutrition Exists Yes Malnutrition (severe): Acute Illness/Injury Evidenced By Suboptimal Energy Intake ( Severe),Weight Loss (Severe) Intake Problem Inadequate Oral Intake Etiology related to altered GI function Signs/Symptoms as evidenced by NPO Status Active Problem Clinical Problem Acute Disease or Injury Related Malnutrition Etiology Severe protein-calorie malnutrition in the context of acute illness related to inadequate oral intake and altered GI function/N/V/abd pain Signs/Symptoms as evidenced by NPO, ~3% wt loss x 1 week and no significant PO x past 1 week as per patient report Status Active Problem Recommendation Dietitian Recommendations/Changes Recommend advance diet as medically able to clear/full liquids as tolerated with goal of Transitional/Regular diet. Offer ensure clear as indicated as diet advanced from NPO post EGD. Diet education as needed depending on findings of EGD. Weight / BMI Weight Weight: 258 lb 15.985 oz Body Mass Index (BMI) 38.2 ABG / Lab / Microbiology Data Result Diagrams: 10/01/21 06:44 10/01/21 06:44 D/C Instructions Discharge Diet: No restrictions Weight Bearing Status: Weight bearing as tolerated Call your doctor if you observe: Fever of 101 or Higher, Numbness or Tingling, Shortness of breath, Dizziness, Chest pain, Increased palpitations (irregular heartbeat) and Calf discomfort Please Follow Up With: Primary care provider When: Within the next two weeks. 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 Take 4 times daily for 2 weeks. Discharge Orders/Prescriptions Prescriptions: New amoxicillin 500 mg Capsule 500 mg PO Q12 Qty: 28 RF: 0 clarithromycin 250 mg Tablet 500 mg PO BIDCM Qty: 28 RF: 0 metronidazole 500 mg Tablet 500 mg PO BIDCM Qty: 28 RF: 0 pantoprazole 40 mg Tablet,Delayed Release (Dr/Ec) 40 mg PO BID Qty: 60 RF: 0 lisinopril 40 mg tablet 40 mg PO DAILY Qty: 30 RF: 0 Discontinued amoxicillin-pot clavulanate 875-125 mg Tablet 1 tab PO BID RF: 0 No Action buspirone 5 mg tablet 5 mg PO TID RF: 0 hyoscyamine sulfate [Levsin] 0.125 mg tablet 0.125 mg PO BID RF: 0 Referrals / Follow Up: Mendez Granados DO [STAFF PHYSICIAN] - Within 2 Weeks Janet Maradiaga PA [Primary Care Provider] - Within 2 Weeks Disposition Disposition (needs filled in before D/C Order can be placed): Home, Self Care Documented by User: Dr. Roselia Garner MD 10/03/21 13:36 Providers Date of Admission: 09/30/21 Reason For Visit: INTRACTABLE ABDOMINAL PAIN, NAUSEA AND VOMITING Medications at Discharge Home Medications amoxicillin 500 mg PO Q12 #28 cap 10/02/21 clarithromycin 500 mg PO BIDCM #28 tab 10/02/21 lisinopril 40 mg PO DAILY #30 tab 10/02/21 metronidazole 500 mg PO BIDCM #28 tab 10/02/21 pantoprazole 40 mg PO BID #60 tab 10/02/21 buspirone 5 mg PO TID 10/03/21 hyoscyamine sulfate [Levsin] 0.125 mg PO BID 10/03/21 ABG / Lab / Microbiology Data Result Diagrams: 10/01/21 06:44 10/01/21 06:44 Discharge Plan Admission Admit Date/Time: 09/30/21 23:32 Primary Reason for Your Visit: Nausea and vomiting Attending Provider: Roselia Garner Primary Care Provider: Janet Maradiaga Consulting Providers: Mendez Granados ; Aayush Man ; Cuco Baker Instructions Additional Instructions / Restrictions: * 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 Take 4 times daily for 2 weeks. Discharge Orders/Prescriptions Prescriptions: New amoxicillin 500 mg Capsule 500 mg PO Q12 Qty: 28 RF: 0 clarithromycin 250 mg Tablet 500 mg PO BIDCM Qty: 28 RF: 0 metronidazole 500 mg Tablet 500 mg PO BIDCM Qty: 28 RF: 0 pantoprazole 40 mg Tablet,Delayed Release (Dr/Ec) 40 mg PO BID Qty: 60 RF: 0 lisinopril 40 mg tablet 40 mg PO DAILY Qty: 30 RF: 0 Discontinued amoxicillin-pot clavulanate 875-125 mg Tablet 1 tab PO BID RF: 0 No Action buspirone 5 mg tablet 5 mg PO TID RF: 0 hyoscyamine sulfate [Levsin] 0.125 mg tablet 0.125 mg PO BID RF: 0 Referrals / Follow Up: Mendez Granados DO [STAFF PHYSICIAN] - Within 2 Weeks Janet Maradiaga PA [Primary Care Provider] - Within 2 Weeks Disposition Disposition (needs filled in before D/C Order can be placed): Home, Self Care Charges/Coding Addendum Addendum: Patient seen by Prudencio Shook under my supervision Patient is a 31-year-old male with past medical history as outlined was admitted through the ED on 10/01/2021 with a complaint of abdominal pain, nausea and vomiting. He had been seen in the ED about 2 days prior to admission with similar complaints and says he has had such episodes throughout the year. CT of the abdomen and pelvis showed no acute abdominal pathology. He was discharged home from the ED 2 days prior to admission but pain and vomiting persisted so he was brought back to the ED. He was admitted to be managed for intractable abdominal pain. Gastroenterology was consulted and he had EGD on 10/02/2021 which showed gastritis and reflux esophagitis. Patient felt much better afterwards and was started on a diet which he tolerated. Patient wanted to go home so was discharged home on 10/03/2021 and is follow-up with his primary care doctor and follow-up with gastroenterology on outpatient basis. He was discharged home on H. pylori treatment namely amoxicillin 500 mg twice daily, clarithromycin 500 mg twice daily as well as Flagyl 500 mg twice daily and also pantoprazole 40 mg twice daily for 2 weeks. He was also discharged on Pepto-Bismol. He is follow-up with his primary care doctor and gastroenterology within 2 to 3 weeks. Of note, his BP had also been elevated; he had not been compliant with his home dose of lisinopril because he said he had his insurance lapse. He was given a prescription for p.o. lisinopril and counseled to be compliant with medication. Patient was seen and examined prior to discharge. Abdominal pain had improved markedly. He had no active complaints and review of systems otherwise negative. Labs and vitals reviewed. Home medication reviewed and reconciled. O/E: Const alert, oriented x3 and no apparent distress General Appearance: cooperative HEENT normocephalic, head/scalp atraumatic, hearing grossly normal bilaterally and moist oral mucous membranes Eyes PERRL, EOMs intact bilaterally and conjunctivae normal Neck no lymphadenopathy, supple and no JVD Resp normal respiratory effort and clear to auscultation bilaterally Cardio regular rate, regular rhythm, S1 normal heart sound, S2 normal heart sound and no murmurs GI normal to inspection, nondistended, normoactive bowel sounds and soft to palpation Extremity normal to inspection, full ROM and no clubbing, cyanosis or edema Skin no rashes or lesions noted Neuro oriented x3, CN's II-XII intact bilaterally and moves all extremities Sensorium / Orientation: awake and alert Psych affect normal Plan is for discharge home as above. Rest as per Prudencio Shook PA-C'snotes are reviewed and endorsed. Total time I spent on discharge today 26 minutes with Prudencio Shook spending 20 minutes making a total of 46 minutes. Visit Charges Inpatient E&M: 29532 Disch Hosp
== END 2021-10-03 10:37 | disposition home or self-care (01) ==
LOC: ED 23:28 → PCU 23:32
PROVIDERS: Internal Medicine Gastroenterology; Admitting Provider Hospitalist; Emergency Provider Emergency Medicine; PCP Physician Assistant; Visit Provider Student in an Organized Health Care Education/Training Program
PROC: 0DJ08ZZ Inspection of Upper Intestinal Tract, Via Natural or Artificial Opening Endoscopic (ICD-10-PCS; CPT 43235; principal; 2021-10-02 11:25)
DX: R11.2 Nausea with vomiting, unspecified (principal); K29.50 Unspecified chronic gastritis without bleeding; K21.00 Gastro-esophageal reflux disease with esophagitis, without bleeding; J02.0 Streptococcal pharyngitis; I10 Essential (primary) hypertension; F17.290 Nicotine dependence, other tobacco product, uncomplicated; Z79.899 Other long term (current) drug therapy; E66.9 Obesity, unspecified; Z68.38 Body mass index [BMI] 38.0-38.9, adult
CPT/HCPCS: 43239; 36415; 80048; 80053; 83690; 85025; 88305; 88313; 88342; 96361; 96365; 96366; 96367; 96375; 96376; 97802; 99218; 99285; 99406; J7030; J7120; A4216; G0378; J2405

== ENCOUNTER 2021-12-25 18:27 | Observation (INO) | payer SELFPAY ==
[2021-12-25 18:28] VITALS: BP 146/94; PULSE 86; RESP 16; TEMP 36; O2SAT 96; BMI 36.7
[2021-12-25 18:30] VITALS: BP 146/94; PULSE 80; RESP 16; TEMP 36; O2SAT 96
--- NOTE | 2021-12-25 19:41 | ED.VIS.GI ---
HPI HPI - GI History of Present Illness Chief Complaint: Abd Pain Narrative Narrative: 31-year-old male presenting with nausea, vomiting for the last 2 to 3 days. He states he has a history of this. He states has been admitted for intractable abdominal pain in the past. He seen Dr. Granados in the hospital and he was started on some medications for home but he does not know what. Patient states he had upper endoscopy which was normal per him. Patient not has not had a fever, chills, body aches. He describes his stomach pain as burning throughout the whole abdomen. No urinary complaints. PFSH PFS Medical History Hypertension Intractable nausea and vomiting Home Medications amoxicillin 500 mg capsule 500 mg PO Q12 #28 caps 10/02/21 [Rx Last Taken Unknown] clarithromycin 250 mg tablet 500 mg PO BIDCM #28 tabs 10/02/21 [Rx Last Taken Unknown] lisinopril 40 mg tablet 40 mg PO DAILY #30 tabs 10/02/21 [Rx Last Taken Unknown] metronidazole 500 mg tablet 500 mg PO BIDCM #28 tabs 10/02/21 [Rx Last Taken Unknown] pantoprazole 40 mg tablet,delayed release 40 mg PO BID #60 tabs 10/02/21 [Rx Last Taken Unknown] buspirone 5 mg tablet 5 mg PO TID mental health 10/03/21 [History Last Taken Unknown] hyoscyamine sulfate 0.125 mg tablet (Levsin) 0.125 mg PO BID bladder 10/03/21 [History Last Taken Unknown] Allergy/AdvReac Type Severity Reaction Status Date / Time No Known Allergies Allergy Verified 10/02/21 10:58 Family History Other Diabetes Social History household members: none Smoking Status: Current every day smoker tobacco type: e-cigarettes ROS ROS ED Constitutional Constitutional ED: Denies chills or fever(s) ENT ENT ED: Denies rhinorrhea or sore throat Cardiovascular Cardiovascular: Denies palpitations or racing heartbeat Respiratory/Chest Respiratory/Chest: Denies cough or dyspnea Gastrointestinal Gastrointestinal: Reports abdominal pain, nausea and vomiting Genitourinary Genitourinary ED: Denies dysuria or hematuria Musculoskeletal Musculoskeletal: Denies arthralgias Integumentary Denies abscess or Abrasions Neurologic Neurologic: Denies headache(s) or paresthesias Psychiatric Psychiatric: Denies anxiety or depression EXAM Physical Exam Const Vital Signs: 12/25/21 18:28 12/25/21 18:30 12/25/21 20:27 Temperature 96.8 F L 96.8 F L Temperature Source Temporal Temporal Pulse Rate 86 80 Respiratory Rate 16 16 18 Blood Pressure 146/94 H 146/94 H Blood Pressure Mean 111 111 Pulse Ox 96 96 Oxygen Delivery Method Room Air Room Air Positive well nourished General Appearance ED: NAD; Negative for pallor HEENT Reports moist mucous membranes normocephalic and atraumatic Eyes PERRL and EOMs intact bilaterally General Eye ED: Negative for pale conjunctiva or scleral icterus Resp normal respiratory effort and clear to auscultation bilaterally Cardio regular rate and regular rhythm GI Palpation: tender epigastric Back/Spine no CVA tenderness Extremity General Extremety ED: Negative for edema or tenderness General Extremity: Negative for edema Neuro CN's II-XII intact bilaterally and moves all extremities Sensorium / Orientation: alert, oriented to person, oriented to place and oriented to time Psych mental status grossly normal Skin General Skin Exam: Negative for jaundice or pallor MDM MDM MDM Narrative Medical decision making narrative: Patient presenting with abdominal pain, nausea, vomiting for the last 2 to 3 days. Patient treated with 4 mg of morphine and 4 mg of Zofran. He is given a liter of IV fluids initially. CBC is obtained and he has no leukocytosis. Hemoglobin hematocrit are stable. Creatinine slightly elevated at 1.38. Electrolytes unremarkable. LFTs are normal. Lipase 137. Looking in the medical record it does look as if Dr. Granados treated him for H. pylori in the past. Patient was given 40 mg of Protonix IV. Reevaluation at 10 PM and the patient states he is now vomiting again and having more pain. He was given 1 mg of Dilaudid and 2 mg of Haldol. Patient not improving significantly. I spoke with the hospitalist to have him admitted overnight for observation. Patient transported to the floor in stable condition. Impression: 1. Intractable nausea vomiting 2. Dehydration 3. Epigastric pain Lab Data Labs: Laboratory Results - last 24 hr 12/25/21 12/25/21 18:45 18:45 WBC 10.3 RBC 5.48 Hgb 15.9 Hct 46.8 MCV 85.4 MCH 29.0 MCHC 34.0 RDW Std Deviation 40.0 RDW Coeff of Meño 12.9 Plt Count 400 MPV 9.5 Immature Gran % (Auto) 0.400 Neut % (Auto) 65.3 Lymph % (Auto) 25.7 [place] % (Auto) 7.8 Eos % (Auto) 0.3 Baso % (Auto) 0.5 Absolute Neuts (auto) 6.7 Absolute Lymphs (auto) 2.65 Nucleated RBC % 0 Sodium 134 L Potassium 3.7 Chloride 102 Carbon Dioxide 21.0 Anion Gap 11 BUN 23 H Creatinine 1.38 H Estim Creat Clear Calc 79.35 Est GFR (MDRD) Af Amer 76 Est GFR (MDRD) Non-Af 63 BUN/Creatinine Ratio 16.7 Glucose 185 H Calcium 9.8 Total Bilirubin 1.00 AST 22 ALT 55 Alkaline Phosphatase 68 Total Protein 9.1 H Albumin 4.0 Globulin 5.1 H Albumin/Globulin Ratio 0.8 L Lipase 137 Discharge Plan Triage Chief Complaint: Abd Pain ED Provider: Brady Goode Dx/Rx/DC Orders Prescriptions: No Action amoxicillin 500 mg Capsule 500 mg PO Q12 Qty: 28 0RF clarithromycin 250 mg Tablet 500 mg PO BIDCM Qty: 28 0RF metronidazole 500 mg Tablet 500 mg PO BIDCM Qty: 28 0RF pantoprazole 40 mg Tablet,Delayed Release (Dr/Ec) 40 mg PO BID Qty: 60 0RF lisinopril 40 mg tablet 40 mg PO DAILY Qty: 30 0RF buspirone 5 mg tablet 5 mg PO TID hyoscyamine sulfate [Levsin] 0.125 mg tablet 0.125 mg PO BID Primary Care Provider: Janet Maradiaga Referrals: Janet Maradiaga PA [Primary Care Provider] -
[2021-12-25] MEDS: Morphine 4 MG/ML Syringe IV (19:54)
[2021-12-25] MEDS: Ondansetron 4 MG/2 ML Vial IV (19:54)
[2021-12-25] MEDS: 0.9% Normal Saline 1,000 ML 1000 ML IV (19:55)
[2021-12-25 20:15] LABS: Absolute Lymphocyte Count 2.65 X10^3/uL (0.83-4.51); Absolute Neutrophil Count 6.7 X10^3/uL (2.0-7.7); Basophil# 0.05 X10^3/uL; Basophil% 0.5 % (0-1); Eosinophil# 0.03 X10^3/uL; Eosinophils% 0.3 % (0-5); Hematocrit 46.8 % (40-54); Hemoglobin 15.9 g/dL (13.0-16.5); Lymphocyte # 2.65 X10^3/ul (0.83-4.51); Lymphocyte % 25.7 % (19-41); Mean Corpuscular Volume 85.4 fL (80-94); Mean Platelet Vol. 9.5 fl (6.2-12.0); Monocyte# 0.81 X10^3/uL; Monocyte% 7.8 % (0-10); NRBC Flagged by Analyzer 0 % (0-5); Neutrophil # 6.74 X10^3/uL (2.7-7.7); Neutrophil % 65.3 % (47-70); Platelet Count 400 K/mm3 (150-450); RBC Distribution Width CV 12.9 % (11.6-14.6); Red Blood Count 5.48 M/mm3 (4.6-6.2); White Blood Count 10.3 K/mm3 (4.4-11.0)
[2021-12-25 20:27] VITALS: RESP 18
[2021-12-25 20:44] LABS: ALB/GLOB Ratio 0.8 RATIO (0.9-2.4); AST(SGOT) 22 U/L (15-37); Alanine Aminotransfer ALT/SGPT 55 U/L (16-61); Alkaline Phosphatase 68 U/L (45-117); Anion Gap 11 (5-15); BUN 23 mg/dL (7-18); BUN/Creat Ratio 16.7 RATIO (10-20); Calcium,Total 9.8 mg/dL (8.5-10.1); Chloride 102 mmol/L (98-107); Creatinine, Serum 1.38 mg/dL (0.70-1.30); EST Glomerular Filtration Rate 63 mL/min (>60); Est Glom Filt Rate - Afr Amer 76 mL/min (>60); Estimated Creatinine Clearance 79.35 ml/min; Globulin 5.1 g/dL (2.2-4.2); Glucose 185 mg/dL (74-106); Lipase 137 U/L (73-393); Potassium 3.7 mmol/L (3.5-5.1); Protein, Total 9.1 g/dL (6.4-8.2); Sodium Level 134 mmol/L (136-145)
[2021-12-25 22:00] VITALS: RESP 18
[2021-12-25] MEDS: Haloperidol Lactate 5 MG/ML Vial 2 MG IV (22:14)
[2021-12-25] MEDS: 0.9% Normal Saline 1,000 ML 999 ML IV (22:14)
[2021-12-25] MEDS: HYDROmorphone 1 MG/ML Syringe IV (22:17)
--- NOTE | 2021-12-25 22:23 | HP.PCM.HOS_ITS ---
[facility] - General General Date of Admission: 12/25/21 Date of Service: 12/25/21 Chief Complaint: Worsening nausea, vomiting and abdominal cramps for 1 week, NATTY. [facility] Narrative ANGELITO OCONNELL, is a 31 M who came to ED for intractable nausea vomiting and worsening abdominal cramps for 1 week. Patient started nausea until a week ago but for last 2 days it got worse, vomiting about 10 times, abdominal cramps/heartburn in the epigastric and lower chest area. Initially vomiting content was gastric but for last 2 days its bilious, greenish-yellow in nature. Denies fever chills, hematemesis, hematochezia or melena. Patient was admitted for similar problem in September 2021. At that immunopositivity was treated for 2 weeks for H. pylori. Patient completed the treatment treatment but is not taking PPI. Occasionally he takes Tums of his friend. In ED, basic lab work shows hyponatremia, BUN/creatinine 23/1.38, baseline 0.77 suggestive of NATTY. Lipase normal. Liver chemistry normal. [facility] Medical History Hypertension Intractable nausea and vomiting Home Medications amoxicillin 500 mg capsule 500 mg PO Q12 #28 caps 10/02/21 [Rx Last Taken Unknown] clarithromycin 250 mg tablet 500 mg PO BIDCM #28 tabs 10/02/21 [Rx Last Taken Unknown] lisinopril 40 mg tablet 40 mg PO DAILY #30 tabs 10/02/21 [Rx Last Taken Unknown] metronidazole 500 mg tablet 500 mg PO BIDCM #28 tabs 10/02/21 [Rx Last Taken Unknown] pantoprazole 40 mg tablet,delayed release 40 mg PO BID #60 tabs 10/02/21 [Rx L ast Taken Unknown] buspirone 5 mg tablet 5 mg PO TID mental health 10/03/21 [History Last Taken Unknown] hyoscyamine sulfate 0.125 mg tablet (Levsin) 0.125 mg PO BID bladder 10/03/21 [History Last Taken Unknown] Allergy/AdvReac Type Severity Reaction Status Date / Time No Known Allergies Allergy Verified 10/02/21 10:58 Family History Other Diabetes Social History household members: none Smoking Status: Current every day smoker tobacco type: e-cigarettes ROS ROS Narrative Constitutional: No fever. Dehydrated. HEENT: Reports systems reviewed and no addt'l complaints, except as documented Respiratory/Chest: Denies chest pain, shortness of breath at rest or with exertion Gastrointestinal: Admission HPI Genitourinary: Spontaneously voided only 1 time morning today. Dark-colored urine. Oliguria. Denies burning urination Musculoskeletal: No joint pain. No arthritis Neurologic: Denies seizure-like activity skin: No ulcer. No rash Endocrinology: Reports systems reviewed and no addt'l complaints, except as documented Hematologic/Lymphatic: Reports systems reviewed and no addt'l complaints, except as documented Rest 14 ROS are negative except as mentioned in HPI Vital Signs Vital Signs Vital Signs: 12/25/21 18:28 12/25/21 18:30 12/25/21 20:27 Temperature 96.8 F L 96.8 F L Temperature Source Temporal Temporal Pulse Rate 86 80 Respiratory Rate 16 16 18 Blood Pressure 146/94 H 146/94 H Blood Pressure Mean 111 111 Pulse Ox 96 96 Oxygen Delivery Method Room Air Room Air Weight Weight: 256 lb 2.834 oz Body Mass Index (BMI) 36.7 Physical Exam Narrative General: Alert, Oriented x3, Cooperative HEENT: Atraumatic, PERRLA, EOMI, Normocephalic Oral: Oral mucosa dry. No Gingival or Mucosal Lesions/ Ulcerations Neck: Supple, No JVD, Negative Carotid Bruits Lungs: Air entry equal in bilateral lung bases. No crepitation/rhonchi Cardiovascular: Regular rate, Regular Rhythm, Normal S1, Normal S2, No murmurs Abdomen: Bowel Sounds Present, Soft, Non Tender, Non-Distended. No peritoneal signs of guarding or rigidity. : No renal angle tenderness. No suprapubic tenderness. Extremities: No edema, Capillary Refill Less than 3 Seconds Skin: No rashes, No breakdown Musculoskeletal: No Tenderness to Palpation of Joints or Extremities Neurological: Cranial nerves II-XII grossly intact, DTR 2+/4 and Symmetrical, Neuro grossly intact Psych/Mental Status: Normal Affect, Appropriate. Results Lab / Micro Data Result Diagrams: 12/25/21 18:45 12/25/21 18:45 Labs: Laboratory Results - last 24 hr 12/25/21 18:45: WBC 10.3, RBC 5.48, Hgb 15.9, Hct 46.8, MCV 85.4, MCH 29.0, MCHC 34.0, RDW Std Deviation 40.0, RDW Coeff of Meño 12.9, Plt Count 400, MPV 9.5, Immature Gran % (Auto) 0.400, Neut % (Auto) 65.3, Lymph % (Auto) 25.7, [place] % (Auto) 7.8, Eos % (Auto) 0.3, Baso % (Auto) 0.5, Absolute Neuts (auto) 6.7, Absolute Lymphs (auto) 2.65, Nucleated RBC % 0 12/25/21 18:45: Sodium 134 L, Potassium 3.7, Chloride 102, Carbon Dioxide 21.0, Anion Gap 11, BUN 23 H, Creatinine 1.38 H, Estim Creat Clear Calc 79.35, Est GFR (MDRD) Af Amer 76, Est GFR (MDRD) Non-Af 63, BUN/Creatinine Ratio 16.7, Glucose 185 H, Calcium 9.8, Total Bilirubin 1.00, AST 22, ALT 55, Alkaline Phosphatase 68, Total Protein 9.1 H, Albumin 4.0, Globulin 5.1 H, Albumin/Globulin Ratio 0.8 L, Lipase 137 Micro: Microbiology 12/25/21 19:50 Nasal Secretion SARS-CoV-2 Antigen (Rapid) - Final Assessment & Plan Assessment/Plan (1) Intractable nausea and vomiting: (2) NATTY (acute kidney injury): PLAN: This 31-year-old gentleman admitted with intractable nausea vomiting and NATTY. 1. NATTY most likely due to intractable nausea vomiting and dehydration: Patient has oliguria by history, increasing creatinine more than 1.5 times than the baseline 0.77 mg/dL, presumed to be occurred in the last 7 days. IV fluid Ringer lactate 150 mill per hour. Patient had 1 L normal saline bolus in the ED. hold nephrotoxic medication including lisinopril. Magnesium and phosphorus ordered. Monitor BMP tomorrow AM. 2. Hypotonic hypovolemic hyponatremia mostly due to vomiting/dehydration: Sodium 134. Had IV fluid normal saline bolus and then Ringer lactate admission above 3. Intractable nausea, vomiting, dyspepsia heartburn/abdominal cramps most likely GERD: Abdominal exam findings are benign. Does not need further imaging. Patient completed 2 weeks of triple therapy as recommended by Dr. Granados. Patient did not follow him in office. Protonix 40 IV every 2 hourly. Continue Protonix 40 mg twice daily at time of discharge. Follow-up with Dr. Granados as an outpatient. 4. Hypertension: Hold lisinopril. Replace lisinopril with amlodipine. Hydralazine 10 mg IV every 4 hourly as needed for systolic blood pressure more than 180 mg. 5. Mild anxiety: Patient on buspirone, continued VT prophylaxis, low risk. Early ambulation encouraged. CODE STATUS full Microbiology Past 72 Hours 12/25/21 19:50 Nasal Secretion SARS-CoV-2 Antigen (Rapid) - Final Laboratory Results 12/25/21 18:45: WBC 10.3, RBC 5.48, Hgb 15.9, Hct 46.8, MCV 85.4, MCH 29.0, MCHC 34.0, RDW Std Deviation 40.0, RDW Coeff of Meño 12.9, Plt Count 400, MPV 9.5, Immature Gran % (Auto) 0.400, Neut % (Auto) 65.3, Lymph % (Auto) 25.7, [place] % (Auto) 7.8, Eos % (Auto) 0.3, Baso % (Auto) 0.5, Absolute Neuts (auto) 6.7, Absolute Lymphs (auto) 2.65, Nucleated RBC % 0 12/25/21 18:45: Sodium 134 L, Potassium 3.7, Chloride 102, Carbon Dioxide 21.0, Anion Gap 11, BUN 23 H, Creatinine 1.38 H, Estim Creat Clear Calc 79.35, Est GFR (MDRD) Af Amer 76, Est GFR (MDRD) Non-Af 63, BUN/Creatinine Ratio 16.7, Glucose 185 H, Calcium 9.8, Total Bilirubin 1.00, AST 22, ALT 55, Alkaline Phosphatase 68, Total Protein 9.1 H, Albumin 4.0, Globulin 5.1 H, Albumin/Globulin Ratio 0.8 L, Lipase 137 Charges/Coding Visit Charges OBSV E&M: 42139 Initial observation care L3
[2021-12-25 22:56] VITALS: BP 164/72; PULSE 86; RESP 18; TEMP 36.7; O2SAT 96
[2021-12-25 22:59] LABS: Magnesium 2.3 mg/dL (1.6-2.6); Phosphorus 3.1 mg/dL (2.5-4.9)
[2021-12-25 23:22] VITALS: BMI 37.2
[2021-12-25 23:35] VITALS: BP 157/88; PULSE 95; RESP 18; TEMP 36.9; O2SAT 99
[2021-12-25] MEDS: Na Biphos/Potassium Phosphate PACKET 1 PACKET PO (23:52)
[2021-12-25] MEDS: Lactated Ringers 1,000 ML 150 ML IV (23:52)
[2021-12-26] MEDS: proCHLORPERazine 10 MG/2 ML Vial 5 MG IV (02:35)
[2021-12-26] MEDS: Acetaminophen 325 MG Tablet 650 MG PO (02:36)
[2021-12-26] MEDS: 0.9% Saline Lock 10 ML Syringe IV ×5 (02:36→23:17)
[2021-12-26] MEDS: oxyCODONE 5 MG Tablet PO ×3 (04:56→15:48)
[2021-12-26 06:00] VITALS: BP 164/83; PULSE 73; RESP 16; TEMP 36.8; O2SAT 96
[2021-12-26 06:26] LABS: Bacteria 0 SEEN /hpf (None Seen); Color, Urine Yellow (Yellow); Glucose, Dipstick Normal (Normal); Leukocyte Esterase-Dipstick Negative /ul (Negative); Mucous, Urine 0 SEEN /hpf (<or=2+); Nitrite-Dipstick Negative (Negative); Occult Blood-Urine 10 /ul (Negative); Protein-Dipstick 30 mg/dl (Negative); Squamous Epithelial Cells - UA 0 SEEN /hpf (0-5); Urine Bilirubin Dipstick Negative (Negative); Urine Clarity Clear (Clear); Urine Urobilinogen Normal (Normal); White Blood Cells 0 SEEN /hpf (0-5)
[2021-12-26 06:29] LABS: Ketone-Dipstick 150 mg/dl (Negative)
[2021-12-26 06:37] LABS: Red Blood Cells-Urine 0-5 SEEN /hpf (0-5)
[2021-12-26] MEDS: busPIRone 5 MG Tablet PO ×3 (06:44→22:00)
[2021-12-26] MEDS: Na Biphos/Potassium Phosphate PACKET 1 PACKET PO ×3 (06:44→22:00)
[2021-12-26] MEDS: Lactated Ringers 1,000 ML 150 ML IV (06:44)
[2021-12-26 07:36] LABS: Anion Gap 9 (5-15); BUN 14 mg/dL (7-18); BUN/Creat Ratio 16.1 RATIO (10-20); Calcium,Total 9.3 mg/dL (8.5-10.1); Chloride 102 mmol/L (98-107); Creatinine, Serum 0.87 mg/dL (0.70-1.30); EST Glomerular Filtration Rate 107 mL/min (>60); Est Glom Filt Rate - Afr Amer 130 mL/min (>60); Estimated Creatinine Clearance 125.86 ml/min; Glucose 145 mg/dL (74-106); Potassium 4.2 mmol/L (3.5-5.1); Sodium Level 135 mmol/L (136-145)
--- NOTE | 2021-12-26 07:37 | PN.HOSP_ITS ---
Subjective Subjective This 31-year-old gentleman admitted with intractable vomiting. Patient was found to be in acute kidney injury admitted to regular nursing floor Objective Data Objective Data Vital Signs: Vital Signs Temp Pulse Resp BP Pulse Ox O2 Del Method 98.3 F 73 16 164/83 H 96 Room Air 12/26/21 06:00 12/26/21 06:00 12/26/21 06:00 12/26/21 06:00 12/26/21 06:00 12/26/21 06:00 Oxygen Delivery Method Room Air Weight: 118 kg Body Mass Index (BMI) 37.2 Intake & Output: Intake and Output for Last 24 Hours 12/24/21 12/25/21 12/26/21 23:59 23:59 23:59 Intake Total 2109 / 1000 Output Total 0 / 0 Balance 2109 / 999 Lab / Micro Data Result Diagrams: 12/25/21 18:45 12/26/21 05:50 Labs: Laboratory Results - last 24 hr 12/25/21 18:45: WBC 10.3, RBC 5.48, Hgb 15.9, Hct 46.8, MCV 85.4, MCH 29.0, MCHC 34.0, RDW Std Deviation 40.0, RDW Coeff of Meño 12.9, Plt Count 400, MPV 9.5, Immature Gran % (Auto) 0.400, Neut % (Auto) 65.3, Lymph % (Auto) 25.7, [place] % (Auto) 7.8, Eos % (Auto) 0.3, Baso % (Auto) 0.5, Absolute Neuts (auto) 6.7, Absolute Lymphs (auto) 2.65, Nucleated RBC % 0 12/25/21 18:45: Sodium 134 L, Potassium 3.7, Chloride 102, Carbon Dioxide 21.0, Anion Gap 11, BUN 23 H, Creatinine 1.38 H, Estim Creat Clear Calc 79.35, Est GFR (MDRD) Af Amer 76, Est GFR (MDRD) Non-Af 63, BUN/Creatinine Ratio 16.7, Glucose 185 H, Calcium 9.8, Total Bilirubin 1.00, AST 22, ALT 55, Alkaline Phosphatase 68, Total Protein 9.1 H, Albumin 4.0, Globulin 5.1 H, Albumin/Globulin Ratio 0.8 L, Lipase 137 12/25/21 22:30: Phosphorus 3.1, Magnesium 2.3 12/26/21 05:30: Urine Color Yellow, Urine Clarity Clear, Urine pH 5.0, Ur Specific [place] 1.030, Urine Protein 30 H, Urine Glucose (UA) Normal, Urine Ketones 150 A*, Urine Occult Blood 10 H, Urine Nitrite Negative, Urine Bilirubin Negative, Urine Urobilinogen Normal, Ur Leukocyte Esterase Negative, Urine RBC 0-5 SEEN, Urine WBC 0 SEEN, Ur Squamous Epith Cells 0 SEEN, Urine Bacteria 0 SEEN, Urine Mucus 0 SEEN 12/26/21 05:50: Sodium 135 L, Potassium 4.2, Chloride 102, Carbon Dioxide 24.0, Anion Gap 9, BUN 14, Creatinine 0.87, Estim Creat Clear Calc 125.86, Est GFR (MDRD) Af Amer 130, Est GFR (MDRD) Non-Af 107, BUN/Creatinine Ratio 16.1, Glucose 145 H, Calcium 9.3 Micro: Microbiology 12/25/21 19:50 Nasal Secretion SARS-CoV-2 Antigen (Rapid) - Final Physical Exam Narrative GENERAL: cooperative HEENT: Atraumatic; EYES; Anicteric, Normal Conjunctiva NECK; supple, normal thyroid, RESPIRATORY: Diminished to auscultation CARDIOVASCULAR: Regular S1 S2, GI: soft, normoactive bowel sounds, : No Renal angle tenderness; EXTREMITIES: No edema, no clubbing, MUSCULOSKELETAL: no muscle wasting NEURO: Awake; no lateralizing signs. SKIN: No Rash PSYCH; Flat affect Assessment & Plan Assessment/Plan (1) Intractable nausea and vomiting: (2) NATTY (acute kidney injury): PLAN: This 31-year-old gentleman admitted with intractable vomiting. Patient was found to be in acute kidney injury admitted to regular nursing floor 1. Chronic intermittent nausea and vomiting ? Patient has undergone work-up as outpatient including EGD with no identifiable etiology. Presented with intractable nausea and vomiting. Admitted to regular nursing floor for symptomatic management. As part of his management ordered gastric emptying studies placed on PPI and consult placed to GI. Patient has previously been seen and evaluated by Dr. Granados 2. Acute kidney injury ? Secondary to intractable nausea and vomiting managed with IV fluid with monitoring of electrolyte 3. Hyponatremia ? Secondary to hypovolemic hyponatremia as a result of nausea and vomiting managed with IV fluids serial monitoring of BMPs ordered 4. Essential hypertension ? Patient was on lisinopril this was held and substituted with amlodipine in view of his impaired kidney function 5. Anxiety disorder ? Patient is on buspirone 6. Class II obesity with BMI of 37 point ? Weight loss advised 7. DVT prophylaxis ? Low risk did encourage early ambulation Charges/Coding Visit Charges OBSV E&M: 32237 Subsequent observation care L3
--- NOTE | 2021-12-26 08:22 | NM_ITS ---
CLINICAL: 31-year-old male with intractable nausea. SEMI-SOLID PHASE 99m Tc SULFUR COLLOID GASTRIC EMPTYING STUDY COMPARISON: None available FINDINGS: The patient was administered 1.1 mCi of 99m Tc sulfur colloid mixed with oatmeal and consumed per os. Image acquisitions in the anterior-posterior projections were obtained for 60 minutes. There is prompt visualization of the stomach. There is no gastroesophageal reflux identified. The T ? emptying was calculated to be 4.87 minutes, (Normal: 12-56 minutes). NM/Gastric Emptying Study IMPRESSION: 1. ABNORMAL 99m Tc sulfur colloid semi-solid phase (oatmeal) gastric emptying imaging examination. A. There is accelerated semi-solid phase gastric emptying compared to normal controls. (Dylan et al, J Nucl Med Tech 38: 186, 2010). Electronically Signed: Gama Lucero, at 12:16 EDT ,
[2021-12-26 08:47] VITALS: BP 165/93; PULSE 74; RESP 18; TEMP 36.8; O2SAT 97
[2021-12-26] MEDS: Ondansetron 4 MG/2 ML Vial IV (09:01)
[2021-12-26] MEDS: Hyoscyamine Sulfate 0.125 MG Tablet PO ×2 (09:01→22:00)
--- NOTE | 2021-12-26 13:55 | CASEMGMT ---
Social Work This SW and SW Carmenza in to met with patient regarding self pay options. Provided resources to assist with covering his hospital stay. Pt listened as SW explained Medicaid application and prescription drug assistance programs. Pt agreeable to reviewing the information and a packet of papers was left with pt. ELICEO Joseph
[2021-12-26 14:00] VITALS: BP 125/75; PULSE 64; RESP 18; TEMP 36.4; O2SAT 95
--- NOTE | 2021-12-26 16:42 | CON.PCM_ITS ---
Assessment & Plan Assessment/Plan (1) Intractable nausea and vomiting: PLAN: The differential diagnosis for intractable nausea vomiting of unknown etiology would be cyclic vomiting syndrome, carcinoid syndrome, less likely celiac disease, dumping syndrome, SMA syndrome. I will check a gastrin level, ESR, CRP, CPK, LDH, VMA, 5 HIAA, celiac profile, protein electrophoresis. He should be on a PPI drip, scopolamine patch, scheduled benzodiazepines to cut out his nausea vomiting. (2) Intractable abdominal pain: PLAN: This pain is possibly associated with his accelerated gastrocolic reflex. However he is not having any diarrhea which I would expect him to have if he does have issues with rapid emptying from his stomach that would participate pain.?When your stomach empties too quickly, your small intestine receives uncomfortably large amounts of poorly digested food. This can cause symptoms of nausea, bloating, abdominal cramps and diarrhea. It can also cause sudden blood sugar changes. Therefore I will check a hemoglobin A1c. Also the differential diagnosis would be superior mesenteric artery syndrome. I will get an upper GI with small bowel follow-through to look for narrowing and third and fourth portion of the duodenum. HPI Consult Data Date of Consult: 12/31/21 HPI Narrative Reason for Consultation: nausea and vomiting HPI Narrative: ANGELITO OCONNELL, is a 31 M who presents with nausea, vomiting for the last 2 to 3 days.? He states he has a history of this.? He states has been admitted for intractable abdominal pain in the past.? He seen Dr. Granados in the hospital and he was started on some medications for home but he does not know what.? Patient states he had upper endoscopy which was normal per him.? Patient not has not had a fever, chills, body aches.? He describes his stomach pain as burning throughout the whole abdomen.? No urinary complaints. Patient had a CAT scan of his abdomen pelvis 3 months ago that was unremarkable for the same complaints. Patient was to stay on clear liquids and when he try to eat this afternoon he had more pain in the epigastric region and started vomiting and threw up about 4 5 times.? Patient denies any fevers. Patient says that when he got home he tried to eat and the pain immediately came back.? He denies any chest pain or shortness of breath.? In the ED his blood pressure was elevated again.? He does have a past medical history of high blood pressure.? He denied any drug usage.? He does not take any nonsteroidals. He underwent an upper endoscopy by myself approximately 3 months ago and was diagnosed with possible cyclic vomiting syndrome. He was supposed to follow-up in the office in order to further the work-up for any possible autoimmune disease causing his symptoms versus organic disease causing the symptoms but he never followed up. He had a gastric emptying study today which had showed accelerated gastro duodenal emptying at 4 minutes after ingestion. He does not complain of any diarrhea or any other symptoms except for abdominal pain with nausea vomiting. [facility] Medical History Hypertension Intractable nausea and vomiting Home Medications lisinopril 40 mg tablet 40 mg PO DAILY #30 tabs 10/02/21 [Rx Last Taken Unknown] buspirone 5 mg tablet 5 mg PO TID #30 tabs 12/27/21 [Rx Last Taken Unknown] metoclopramide HCl 5 mg tablet (Reglan) 5 mg PO Q6H PRN nausea and vomiting #30 tabs 12/27/21 [Rx Last Taken Unknown] ondansetron 4 mg disintegrating tablet 4 mg PO Q6H PRN nausea and vomiting #30 tabs 12/27/21 [Rx Last Taken Unknown] pantoprazole 40 mg tablet,delayed release (Protonix) 40 mg PO BID #60 tabs 12/27/21 [Rx Last Taken Unknown] Allergy/AdvReac Type Severity Reaction Status Date / Time No Known Allergies Allergy Verified 10/02/21 10:58 Family History Other Diabetes Social History household members: none Smoking Status: Current every day smoker tobacco type: e-cigarettes ROS ROS Narrative Constitutional: No fever. Dehydrated. HEENT: Reports systems reviewed and no addt'l complaints, except as documented Respiratory/Chest: Denies chest pain, shortness of breath at rest or with exertion Gastrointestinal: Admission HPI Genitourinary: Spontaneously voided only 1 time morning today. Dark-colored urine. Oliguria. Denies burning urination Musculoskeletal: No joint pain. No arthritis Neurologic: Denies seizure-like activity skin: No ulcer. No rash Endocrinology: Reports systems reviewed and no addt'l complaints, except as documented Hematologic/Lymphatic: Reports systems reviewed and no addt'l complaints, except as documented Rest 14 ROS are negative except as mentioned in HPI Physical Exam Narrative GENERAL: cooperative HEENT: Atraumatic; EYES; Anicteric, Normal Conjunctiva NECK; supple, normal thyroid, RESPIRATORY: Diminished to auscultation CARDIOVASCULAR: Regular S1 S2, GI: soft, normoactive bowel sounds, : No Renal angle tenderness; EXTREMITIES: No edema, no clubbing, MUSCULOSKELETAL: no muscle wasting NEURO: Awake; no lateralizing signs. SKIN: No Rash PSYCH; Flat affect Lab / Micro Data Result Diagrams: 12/27/21 05:25 12/27/21 05:25 Labs: Laboratory Results - last 24 hr 12/25/21 18:45: WBC 10.3, RBC 5.48, Hgb 15.9, Hct 46.8, MCV 85.4, MCH 29.0, MCHC 34.0, RDW Std Deviation 40.0, RDW Coeff of Mñeo 12.9, Plt Count 400, MPV 9.5, Immature Gran % (Auto) 0.400, Neut % (Auto) 65.3, Lymph % (Auto) 25.7, [place] % (Auto) 7.8, Eos % (Auto) 0.3, Baso % (Auto) 0.5, Absolute Neuts (auto) 6.7, Absolute Lymphs (auto) 2.65, Nucleated RBC % 0 12/25/21 18:45: Sodium 134 L, Potassium 3.7, Chloride 102, Carbon Dioxide 21.0, Anion Gap 11, BUN 23 H, Creatinine 1.38 H, Estim Creat Clear Calc 79.35, Est GFR (MDRD) Af Amer 76, Est GFR (MDRD) Non-Af 63, BUN/Creatinine Ratio 16.7, Glucose 185 H, Calcium 9.8, Total Bilirubin 1.00, AST 22, ALT 55, Alkaline Phosphatase 68, Total Protein 9.1 H, Albumin 4.0, Globulin 5.1 H, Albumin/Globulin Ratio 0.8 L, Lipase 137 12/25/21 22:30: Phosphorus 3.1, Magnesium 2.3 12/26/21 05:30: Urine Color Yellow, Urine Clarity Clear, Urine pH 5.0, Ur Specific [place] 1.030, Urine Protein 30 H, Urine Glucose (UA) Normal, Urine Ketones 150 A*, Urine Occult Blood 10 H, Urine Nitrite Negative, Urine Bilirubin Negative, Urine Urobilinogen Normal, Ur Leukocyte Esterase Negative, Urine RBC 0-5 SEEN, Urine WBC 0 SEEN, Ur Squamous Epith Cells 0 SEEN, Urine Bacteria 0 SEEN, Urine Mucus 0 SEEN 12/26/21 05:50: Sodium 135 L, Potassium 4.2, Chloride 102, Carbon Dioxide 24.0, Anion Gap 9, BUN 14, Creatinine 0.87, Estim Creat Clear Calc 125.86, Est GFR (MDRD) Af Amer 130, Est GFR (MDRD) Non-Af 107, BUN/Creatinine Ratio 16.1, Glucose 145 H, Calcium 9.3 Micro: Microbiology 12/25/21 19:50 Nasal Secretion SARS-CoV-2 Antigen (Rapid) - Final Radiology Impression Gastric Emptying Nuclear Medicine 12/26/21 08:22 IMPRESSION: 1. ABNORMAL 99m Tc sulfur colloid semi-solid phase (oatmeal) gastric emptying imaging examination. A. There is accelerated semi-solid phase gastric emptying compared to normal controls. (Dyaln et al, J Nucl Med Tech 38: 186, 2010). Electronically Signed: Gama Lucero, at 12:16 EDT , Charges/Coding Visit Charges Inpatient E&M: 90886 Init Hosp L2
[2021-12-26] MEDS: Metoclopramide 10 MG/2 ML Vial 5 MG IV ×2 (18:06→23:17)
[2021-12-26 18:38] LABS: CPK Total, Creatine Kinase 91 U/L (39-308); LDH 144 U/L (87-241)
[2021-12-26 19:48] LABS: Hemoglobin A1c 6.4 % (3.8-5.6)
[2021-12-26 20:00] VITALS: BP 146/90; PULSE 73; RESP 12; TEMP 36.4; O2SAT 99
[2021-12-27 03:30] VITALS: BP 145/87; PULSE 72; RESP 12; TEMP 36.4; O2SAT 100
[2021-12-27 05:43] LABS: Absolute Lymphocyte Count 4.89 X10^3/uL (0.83-4.51); Absolute Neutrophil Count 4.3 X10^3/uL (2.0-7.7); Basophil# 0.08 X10^3/uL; Basophil% 0.8 % (0-1); Eosinophil# 0.17 X10^3/uL; Eosinophils% 1.6 % (0-5); Hemoglobin 14.2 g/dL (13.0-16.5); Lymphocyte # 4.89 X10^3/ul (0.83-4.51); Lymphocyte % 46.4 % (19-41); Mean Corp Hgb Conc 33.8 g/dL (32-36); Mean Corpuscular Hgb 29.2 pg (27.0-32.0); Mean Corpuscular Volume 86.4 fL (80-94); Mean Platelet Vol. 9.3 fl (6.2-12.0); Monocyte# 1.06 X10^3/uL; Monocyte% 10.1 % (0-10); NRBC Flagged by Analyzer 0 % (0-5); Neutrophil # 4.29 X10^3/uL (2.7-7.7); Neutrophil % 40.7 % (47-70); Platelet Count 307 K/mm3 (150-450); RBC Distribution Width CV 12.8 % (11.6-14.6); Red Blood Count 4.86 M/mm3 (4.6-6.2); White Blood Count 10.5 K/mm3 (4.4-11.0)
[2021-12-27] MEDS: Cosyntropin 0.25 MG in 0.9% Normal Saline (Pres. free 1 ML 30 MG IV (06:00)
[2021-12-27] MEDS: Acetaminophen 325 MG Tablet 650 MG PO (06:08)
[2021-12-27] MEDS: busPIRone 5 MG Tablet PO (06:08)
[2021-12-27] MEDS: Na Biphos/Potassium Phosphate PACKET 1 PACKET PO (06:08)
[2021-12-27] MEDS: Ondansetron 4 MG/2 ML Vial IV (06:08)
[2021-12-27] MEDS: Metoclopramide 10 MG/2 ML Vial 5 MG IV (06:09)
[2021-12-27] MEDS: 0.9% Saline Lock 10 ML Syringe IV (06:11)
[2021-12-27 06:17] LABS: AST(SGOT) 18 U/L (15-37); Alanine Aminotransfer ALT/SGPT 48 U/L (16-61); Albumin, Serum 3.1 g/dL (3.2-5.0); Alkaline Phosphatase 50 U/L (45-117); Anion Gap 8 (5-15); BUN 10 mg/dL (7-18); BUN/Creat Ratio 12.1 RATIO (10-20); Bilirubin, Direct 0.22 mg/dL (0.00-0.30); Calcium,Total 8.5 mg/dL (8.5-10.1); Chloride 105 mmol/L (98-107); Creatinine, Serum 0.83 mg/dL (0.70-1.30); EST Glomerular Filtration Rate 114 mL/min (>60); Est Glom Filt Rate - Afr Amer 138 mL/min (>60); Estimated Creatinine Clearance 131.93 ml/min; Globulin 4.2 g/dL (2.2-4.2); Glucose 126 mg/dL (74-106); Magnesium 2.1 mg/dL (1.6-2.6); Potassium 3.8 mmol/L (3.5-5.1); Protein, Total 7.3 g/dL (6.4-8.2); Sodium Level 137 mmol/L (136-145)
[2021-12-27] MEDS: oxyCODONE 5 MG Tablet PO (07:04)
--- NOTE | 2021-12-27 07:39 | PN.HOSP_ITS ---
Subjective Subjective Patient seen still complains of some nausea. Was seen in consultation by Dr. Granados with GI he ordered gastrin level, ESR, CRP, CPK, LDH, VMA, 5 HIAA, celiac profile, protein electrophoresis.? Also recommended addition of PPI drip scopolamine patch and scheduled benzos. Discussed with patient about his symptoms. He requested for possible discharge (per patient her daughters bed they is on 12/28/2021 and he would not like to message). I discussed with patient to return to the ED if his symptoms should recur. Was discharged home on PPI scopolamine patch) Objective Data Objective Data Vital Signs: Vital Signs Temp Pulse Resp BP Pulse Ox O2 Del Method 97.6 F L 72 12 145/87 H 100 Room Air 12/27/21 03:30 12/27/21 03:30 12/27/21 03:30 12/27/21 03:30 12/27/21 03:30 12/27/21 03:30 Oxygen Delivery Method Room Air Weight: 118 kg Body Mass Index (BMI) 37.2 Intake & Output: Intake and Output for Last 24 Hours 12/25/21 12/26/21 12/27/21 23:59 23:59 23:59 Intake Total 2110 / 2110 2320 / 2320 1 / 1 Output Total 0 / 0 Balance 0 / 2110 2320 / 2320 Lab / Micro Data Result Diagrams: 12/27/21 05:25 12/27/21 05:25 Labs: Laboratory Results - last 24 hr 12/26/21 18:00: Lactate Dehydrogenase 144, Total Creatine Kinase 91 12/26/21 18:00: Hemoglobin A1c 6.4 H 12/27/21 05:25: WBC 10.5, RBC 4.86, Hgb 14.2, Hct 42.0, MCV 86.4, MCH 29.2, MCHC 33.8, RDW Std Deviation 40.0, RDW Coeff of Meño 12.8, Plt Count 307, MPV 9.3, Immature Gran % (Auto) 0.400, Neut % (Auto) 40.7 L, Lymph % (Auto) 46.4 H, [place] % (Auto) 10.1 H, Eos % (Auto) 1.6, Baso % (Auto) 0.8, Absolute Neuts (auto) 4.3, Absolute Lymphs (auto) 4.89 H, Nucleated RBC % 0 12/27/21 05:25: Sodium 137, Potassium 3.8, Chloride 105, Carbon Dioxide 24.0, Anion Gap 8, BUN 10, Creatinine 0.83, Estim Creat Clear Calc 131.93, Est GFR (MDRD) Af Amer 138, Est GFR (MDRD) Non-Af 114, BUN/Creatinine Ratio 12.1, Glucose 126 H, Calcium 8.5, Magnesium 2.1, Total Bilirubin 0.90, Direct Bilirubin 0.22, AST 18, ALT 48, Alkaline Phosphatase 50, Total Protein 7.3, Albumin 3.1 L, Globulin 4.2 12/27/21 05:25: Cortisol 13.90 12/27/21 06:45: Cortisol 41.40 H Micro: Microbiology 12/25/21 19:50 Nasal Secretion SARS-CoV-2 Antigen (Rapid) - Final Radiography Diagnostic Testing: Radiology Impression Gastric Emptying Nuclear Medicine 12/26/21 08:22 IMPRESSION: 1. ABNORMAL 99m Tc sulfur colloid semi-solid phase (oatmeal) gastric emptying imaging examination. A. There is accelerated semi-solid phase gastric emptying compared to normal controls. (Dylan bejarano al, J Nucl Med Tech 38: 186, 2010). Electronically Signed: Gama Nic, at 12:16 EDT , Physical Exam Narrative GENERAL: cooperative HEENT: Atraumatic; EYES; Anicteric, Normal Conjunctiva NECK; supple, normal thyroid, RESPIRATORY: Diminished to auscultation CARDIOVASCULAR: Regular S1 S2, GI: soft, normoactive bowel sounds, : No Renal angle tenderness; EXTREMITIES: No edema, no clubbing, MUSCULOSKELETAL: no muscle wasting NEURO: Awake; no lateralizing signs. SKIN: No Rash PSYCH; Flat affect Assessment & Plan Assessment/Plan (1) Intractable nausea and vomiting: (2) NATTY (acute kidney injury): PLAN: This 31-year-old gentleman admitted with intractable vomiting. Patient was found to be in acute kidney injury admitted to regular nursing floor 1. Chronic intermittent nausea and vomiting ? Patient has undergone work-up as outpatient including EGD with no identifiable etiology. Presented with intractable nausea and vomiting. Admitted to regular nursing floor for symptomatic management. As part of his management ordered gastric emptying studies placed on PPI and consult placed to GI. Patient has previously been seen and evaluated by Dr. Granados -12/27/2021; Patient seen still complains of some nausea. Was seen in consultation by Dr. Granados with GI he ordered gastrin level, ESR, CRP, CPK, LDH, VMA, 5 HIAA, celiac profile, protein electrophoresis.? Also recommended addition of PPI drip scopolamine patch and scheduled benzos. Discussed with patient about his symptoms. He requested for possible discharge (per patient her daughters bed they is on 12/28/2021 and he would not like to message). I discussed with patient to return to the ED if his symptoms should recur. Was discharged home on PPI scopolamine patch) 2. Acute kidney injury ? Secondary to intractable nausea and vomiting managed with IV fluid with monitoring of electrolyte 3. Hyponatremia ? Secondary to hypovolemic hyponatremia as a result of nausea and vomiting managed with IV fluids serial monitoring of BMPs ordered 4. Essential hypertension ? Patient was on lisinopril this was held and substituted with amlodipine in view of his impaired kidney function 5. Anxiety disorder ? Patient is on buspirone 6. Class II obesity with BMI of 37 point ? Weight loss advised 7. DVT prophylaxis ? Low risk did encourage early ambulation Charges/Coding Visit Charges Inpatient E&M: 53701 Subs Hosp L2 OBSV E&M: 55460 Subsequent observation care L2
[2021-12-27 08:08] VITALS: BP 169/87; PULSE 78; RESP 18; TEMP 37.1; O2SAT 98
[2021-12-27] MEDS: Hyoscyamine Sulfate 0.125 MG Tablet PO (10:34)
--- NOTE | 2021-12-27 10:42 | PCM.DC.SUM ---
Providers Date of Admission: 12/25/21 Date of Discharge: 12/27/21 Primary Care Physician: FRANCISCO Ortega Consultations 12/26/21 08:22 Consult: Gastroenterology Routine Consulting Provider: Daniel G[facility] Reason for Consult: Intractable nausea vomiting EMERGENT Consult: No MD Notified: Yes Date Notified: 12/26/21 Time Notified: 08:24 Method of Notification: Text Reason For Visit: INTRACTABLE NAUSEA & VOMITING, NATTY Diagnosis Discharge Diagnosis (1) Intractable nausea and vomiting: Status: Acute Code(s): R11.2 - Nausea with vomiting, unspecified (2) NATTY (acute kidney injury): Status: Acute Code(s): N17.9 - Acute kidney failure, unspecified Medications at Discharge Home Medications lisinopril 40 mg tablet 40 mg PO DAILY #30 tabs 10/02/21 buspirone 5 mg tablet 5 mg PO TID #30 tabs 12/27/21 metoclopramide HCl 5 mg tablet (Reglan) 5 mg PO Q6H PRN nausea and vomiting #30 tabs 12/27/21 ondansetron 4 mg disintegrating tablet 4 mg PO Q6H PRN nausea and vomiting #30 tabs 12/27/21 pantoprazole 40 mg tablet,delayed release (Protonix) 40 mg PO BID #60 tabs 12/27/21 Hospital Course Summary of Care Provided Minutes Spent on Discharge: 35 Hospital Course: This 31-year-old gentleman admitted with intractable vomiting. Patient was found to be in acute kidney injury admitted to regular nursing floor 1. Chronic intermittent nausea and vomiting ? Patient has undergone work-up as outpatient including EGD with no identifiable etiology. Presented with intractable nausea and vomiting. Admitted to regular nursing floor for symptomatic management. As part of his management ordered gastric emptying studies placed on PPI and consult placed to GI. Patient has previously been seen and evaluated by Dr. Granados -12/27/2021; Patient seen still complains of some nausea. Was seen in consultation by Dr. Granados with GI he ordered gastrin level, ESR, CRP, CPK, LDH, VMA, 5 HIAA, celiac profile, protein electrophoresis.? Also recommended addition of PPI drip scopolamine patch and scheduled benzos. Discussed with patient about his symptoms. He requested for possible discharge (per patient her daughters birthday is on 12/28/2022 and he would not like to message). I discussed with patient to return to the ED if his symptoms should recur. Was discharged home on PPI, Zofran, Reglan and BuSpar. Plan is for patient to follow-up with Dr. Granados for results of her diagnostic work-up. 2. Acute kidney injury ? Secondary to intractable nausea and vomiting managed with IV fluid with monitoring of electrolyte ? 12/27/2021 resolved 3. Hyponatremia ? Secondary to hypovolemic hyponatremia as a result of nausea and vomiting managed with IV fluids serial monitoring of BMPs ordered ? 12/27/2021 resolved at the time of discharge 4. Essential hypertension ? Patient was on lisinopril this was held and substituted with amlodipine in view of his impaired kidney function ? 12/27/2021 lisinopril resumed on discharge 5. Anxiety disorder ? Patient is on buspirone 6. Class II obesity with BMI of 37 point ? Weight loss advised 7. DVT prophylaxis ? Low risk did encourage early ambulation Physical Exam Narrative GENERAL: cooperative HEENT: Atraumatic; EYES; Anicteric, Normal Conjunctiva NECK; supple, normal thyroid, RESPIRATORY: Diminished to auscultation CARDIOVASCULAR: Regular S1 S2, GI: soft, normoactive bowel sounds, : No Renal angle tenderness; EXTREMITIES: No edema, no clubbing, MUSCULOSKELETAL: no muscle wasting NEURO: Awake; no lateralizing signs. SKIN: No Rash PSYCH; Flat affect Weight / BMI Weight Weight: 118 kg Body Mass Index (BMI) 37.2 ABG / Lab / Microbiology Data Result Diagrams: 12/27/21 05:25 12/27/21 05:25 Laboratory: Laboratory Results - last 24 hr 12/26/21 18:00: Lactate Dehydrogenase 144, Total Creatine Kinase 91 12/26/21 18:00: Hemoglobin A1c 6.4 H 12/26/21 18:00: Ur VMA 24 hr Cancelled, Ur VMA Concentration Cancelled, Urine 5-HIAA 24 Hour Cancelled, Urine 5-HIAA, Quant Cancelled, Urine Epinephrine Cancelled, Ur Epinephrine 24 Hr Cancelled, Urine Norepinephrine Cancelled, U Norepinephrine 24 Hr Cancelled, Urine Dopamine Cancelled, Ur Dopamine 24 Hr Cancelled 12/27/21 05:25: WBC 10.5, RBC 4.86, Hgb 14.2, Hct 42.0, MCV 86.4, MCH 29.2, MCHC 33.8, RDW Std Deviation 40.0, RDW Coeff of Meño 12.8, Plt Count 307, MPV 9.3, Immature Gran % (Auto) 0.400, Neut % (Auto) 40.7 L, Lymph % (Auto) 46.4 H, [place] % (Auto) 10.1 H, Eos % (Auto) 1.6, Baso % (Auto) 0.8, Absolute Neuts (auto) 4.3, Absolute Lymphs (auto) 4.89 H, Nucleated RBC % 0 12/27/21 05:25: Sodium 137, Potassium 3.8, Chloride 105, Carbon Dioxide 24.0, Anion Gap 8, BUN 10, Creatinine 0.83, Estim Creat Clear Calc 131.93, Est GFR (MDRD) Af Amer 138, Est GFR (MDRD) Non-Af 114, BUN/Creatinine Ratio 12.1, Glucose 126 H, Calcium 8.5, Magnesium 2.1, Total Bilirubin 0.90, Direct Bilirubin 0.22, AST 18, ALT 48, Alkaline Phosphatase 50, Total Protein 7.3, Albumin 3.1 L, Globulin 4.2 12/27/21 05:25: Cortisol 13.90 12/27/21 06:45: Cortisol 41.40 H 12/27/21 07:15: Cortisol 46.20 H Microbiology: Microbiology 12/25/21 19:50 Nasal Secretion SARS-CoV-2 Antigen (Rapid) - Final Radiography Diagnostic Testing: Radiology Impression Gastric Emptying Nuclear Medicine 12/26/21 08:22 IMPRESSION: 1. ABNORMAL 99m Tc sulfur colloid semi-solid phase (oatmeal) gastric emptying imaging examination. A. There is accelerated semi-solid phase gastric emptying compared to normal controls. (Dylan et al, J Nucl Med Tech 38: 186, 2010). Electronically Signed: Gama Lucero, at 12:16 EDT , D/C Instructions Discharge Diet: No restrictions Discharge Activity: Return to Normal Activity Call your doctor if you observe: Fever of 101 or Higher, Shortness of breath, Fainting spells and Chest pain Meaningful Use Info Meaningful Use Diagnoses (Choose all that apply): None applicable Discharge Plan Admission Admit Date/Time: 12/25/21 22:26 Attending Provider: Ellis Hays Primary Care Provider: Janet Maradiaga Consulting Providers: Kev Yancey Discharge Orders/Prescriptions Prescriptions: New pantoprazole [Protonix] 40 mg tablet,delayed release (DR/EC) 40 mg PO BID Qty: 60 0RF buspirone 5 mg Tablet 5 mg PO TID Qty: 30 0RF metoclopramide HCl [Reglan] 5 mg tablet 5 mg PO Q6H PRN (Reason: nausea and vomiting) Qty: 30 0RF ondansetron 4 mg tablet,disintegrating 4 mg PO Q6H PRN (Reason: nausea and vomiting) Qty: 30 0RF Continued lisinopril 40 mg tablet 40 mg PO DAILY Qty: 30 0RF Referrals / Follow Up: Mendez Granados DO [Med Staff - Active Staff] - Within 1 Week Janet Maradiaga PA [Primary Care Provider] - In 1 Week Disposition Disposition (needs filled in before D/C Order can be placed): Home, Self Care Charges/Coding Visit Charges OBSV E&M: 69102 Observation care discharge
[2021-12-28 13:07] LABS: Anti-Centromere B Ab <0.2 AI (0.0-0.9); Anti-Chromatin <0.2 AI (0.0-0.9); Anti-Jo <0.2 AI (0.0-0.9); Anti-Scleroderma-70 AB 0.9 AI (0.0-0.9); RNP Ab 0.4 AI (0.0-0.9); SJOGREN'S Anti-SS-A test < 0.2 AI (0.0-0.9); SJOGREN'S Anti-SS-B test < 0.2 AI (0.0-0.9); Smith Ab <0.2 AI (0.0-0.9)
[2021-12-28 15:08] LABS: Endomysial Antibody IgA Negative (Negative)
[2021-12-28 17:15] LABS: Deamidated Gliadin IgA 5 units (0-19); Deamidated Gliadin IgG 2 units (0-19); Immunoglobulin A 547 mg/dL (90-386); t-Transglutaminase IgA <2 U/mL (0-3)
[2021-12-28 17:18] LABS: Anti-dsDNA Ab <1 IU/mL (0-9)
[2021-12-29 22:06] LABS: Cytoplasmic Ab (C-ANCA) <1:20 titer (Neg:<1:20); Immunoglobulin A 547 mg/dL (90-386); Immunoglobulin E < 2 IU/mL (6-495); Immunoglobulin G 1060 mg/dL (603-1613); Immunoglobulin M 82 mg/dL (20-172)
[2021-12-30 15:47] LABS: Gastrin, Serum 19 pg/mL (0-115); Perinuclear Ab (P-ANCA) <1:20 titer (Neg:<1:20)
== END 2021-12-27 11:11 | disposition home or self-care (01) ==
LOC: ED 19:09 → MS3 22:42
PROVIDERS: Internal Medicine Gastroenterology; Admitting Provider Internal Medicine; Emergency Provider Student in an Organized Health Care Education/Training Program; PCP Physician Assistant; Visit Provider Internal Medicine
DX: N17.9 Acute kidney failure, unspecified (principal); I10 Essential (primary) hypertension; E87.1 Hypo-osmolality and hyponatremia; R11.2 Nausea with vomiting, unspecified; F17.290 Nicotine dependence, other tobacco product, uncomplicated; E66.9 Obesity, unspecified; Z68.37 Body mass index [BMI] 37.0-37.9, adult; Z79.899 Other long term (current) drug therapy; E86.0 Dehydration; F41.9 Anxiety disorder, unspecified
CPT/HCPCS: 36415; 78264; 80048; 80053; 80076; 81001; 82384; 82533; 82550; 82784; 82785; 82941; 83036; 83497; 83516; 83615; 83690; 83735; 84100; 84585; 85025; 86225; 86235; 86255; 86256; 87811; 96361; 96365; 96366; 96367; 96375; 96376; 99218; 99284; 99406; A9541; J7030; J7120; A4216; G0378; J0834; J2405; J3490

== ENCOUNTER 2022-04-16 17:43 | Emergency (ER) | payer SELFPAY ==
[2022-04-16 17:44] VITALS: BP 170/111; PULSE 106; RESP 19; TEMP 36.4; O2SAT 97; BMI 37.3
[2022-04-16] MEDS: 0.9% Normal Saline 1,000 ML 1000 ML IV (18:46)
[2022-04-16] MEDS: Haloperidol Lactate 5 MG/ML Vial 2 MG IV (18:46)
--- NOTE | 2022-04-16 18:54 | ED.VIS.GI ---
HPI HPI - GI History of Present Illness Chief Complaint: Abd Pain Informant: patient Narrative Narrative: Patient is a 32-year-old male presenting with epigastric abdominal pain as well as nausea and vomiting. He has a history of his episodes of intractable abdominal pain. Has been admitted in the past for work-up for this as well as for associated dehydration. He follows with Dr. Granados. Has had an endoscopy done. He is currently only on lisinopril. He states he has been on antacids as well as other medicines but nothing helps. States morphine usually helps with his pain. No other complaints at this time. States this feels like his prior episodes. No changes bowel habits. Denies any black or blood in his stool. Has had a small amount of blood in his vomit. No report of any fevers. Does have some sweats and chills when the pain is severe. PFSH PFS Medical History Hypertension Intractable nausea and vomiting Home Medications lisinopril 40 mg tablet 40 mg PO DAILY #30 tabs 10/02/21 [Rx Last Taken Unknown] buspirone 5 mg tablet 5 mg PO TID #90 tabs 04/16/22 [Rx Last Taken Unknown] dicyclomine 20 mg tablet 20 mg PO TID PRN breakthrough pain #20 tabs 04/16/22 [Rx Last Taken Unknown] hyoscyamine sulfate 0.125 mg tablet (Levsin) 0.125 mg PO Q8H #90 tabs 04/16/22 [Rx Last Taken Unknown] metoclopramide HCl 10 mg tablet (Reglan) 10 mg PO Q6H PRN nausea and vomiting #20 tabs 04/16/22 [Rx Last Taken Unknown] omeprazole 20 mg capsule,delayed release 20 mg PO DAILY #30 caps 04/16/22 [Rx Last Taken Unknown] Allergy/AdvReac Type Severity Reaction Status Date / Time No Known Allergies Allergy Verified 04/16/22 17:45 Family History Other Diabetes Social History household members: none Smoking Status: Current every day smoker tobacco type: e-cigarettes ROS ROS ED Constitutional Constitutional ED: Denies chills ENT ENT ED: Denies rhinorrhea or sore throat Cardiovascular Cardiovascular: Denies chest pain or palpitations Respiratory/Chest Respiratory/Chest: Denies cough or dyspnea Gastrointestinal Gastrointestinal: Reports abdominal pain, nausea and vomiting; Denies constipation, diarrhea or melena Genitourinary Genitourinary ED: Denies dysuria or hematuria Musculoskeletal Musculoskeletal: Denies arthralgias, back pain or myalgias Integumentary Denies rash Neurologic Neurologic: Denies headache(s) Psychiatric Psychiatric: Denies anxiety Hematologic/Lymphatic Hematologic/Lymphatic: Denies easy bleeding or easy bruising EXAM Physical Exam Const Vital Signs: 04/16/22 17:44 04/16/22 20:00 04/16/22 22:16 Temperature 97.6 F L Temperature Source Temporal Pulse Rate 106 H 74 77 Respiratory Rate 19 H 26 H 24 H Blood Pressure 170/111 H Blood Pressure Mean 130 Pulse Ox 97 97 Oxygen Delivery Method Room Air Room Air Positive well nourished and well developed Constitutional Narrative: Uncomfortable appearing, sitting in the bed rocking back and forth General Appearance ED: well developed HEENT Reports moist mucous membranes normocephalic and atraumatic Eyes PERRL and EOMs intact bilaterally Neck supple and no JVD Resp normal respiratory effort and clear to auscultation bilaterally Cardio regular rate, regular rhythm and no murmurs GI non-distended Auscultation: hypoactive bowel sounds Palpation: soft and tender epigastric; Negative for guarding or rigid Back/Spine no CVA tenderness Extremity full ROM Neuro moves all extremities Motor Exam: Negative for general weakness Psych mental status grossly normal and thought process normal Skin no wounds MDM MDM MDM Narrative Medical decision making narrative: Patient is evaluated for recurrent episode of epigastric abdominal pain as well as nausea and vomiting. Patient is hypertensive and tachycardic upon arrival. He does have a history of hypertension. Is exam otherwise is pretty benign. He has had evaluation through GI however he has not recently followed up with GI. He is not on any stomach medicine. CBC is normal. CMP shows a low bicarb of 17 consistent with dehydration however his anion gap is normal at this time. Urinalysis shows 150 ketones but otherwise normal. VBG ordered which is largely normal with no significant metabolic acidosis. Patient is given 2 L of IV fluid, IV Haldol and morphine. On repeat evaluation he is improving but then starts to have further nausea. He is then given IV Reglan and then oral Bentyl. Case is discussed with Dr. Granados, GI on-call, who recommends starting the patient on maintenance Levsin, bupropion and then dicyclomine for breakthrough pain. In addition we will start the patient back on an antacid. Patient is able to tolerate p.o. challenge in the ER. Is counseled importance of outpatient GI follow-up. Is discharged home in improved and stable condition. What exact cause of his pain nausea and vomiting is not clear his lab work is largely unremarkable, he is hemodynamically stable he is already had a GI work-up so I do not think further imaging is indicated emergently at this time specially as he is having improvement of his symptoms in the emergency room. Lab Data Attestation: I reviewed the patient's lab results. Labs: Laboratory Results - last 24 hr 04/16/22 04/16/22 04/16/22 18:48 18:48 19:55 WBC 9.4 RBC 5.43 Hgb 16.0 Hct 45.8 MCV 84.3 MCH 29.5 MCHC 34.9 RDW Std Deviation 37.9 RDW Coeff of Meño 12.5 Plt Count 397 MPV 9.0 Immature Gran % (Auto) 0.400 Neut % (Auto) 71.7 H Lymph % (Auto) 20.1 [place] % (Auto) 7.3 Eos % (Auto) 0.0 Baso % (Auto) 0.5 Absolute Neuts (auto) 6.7 Absolute Lymphs (auto) 1.89 Nucleated RBC % 0 Sodium 139 Potassium 3.7 Chloride 108 H Carbon Dioxide 17.0 L Anion Gap 14 BUN 16 Creatinine 1.14 Estim Creat Clear Calc 95.16 Est GFR (MDRD) Af Amer 95 Est GFR (MDRD) Non-Af 79 BUN/Creatinine Ratio 14.0 Glucose 158 H Calcium 9.2 Total Bilirubin 0.70 Direct Bilirubin 0.20 AST 23 ALT 63 H Alkaline Phosphatase 71 Total Protein 8.4 H Albumin 3.8 Globulin 4.6 H Lipase 177 Urine Color Yellow Urine Clarity Clear Urine pH 5.0 Ur Specific [place] 1.030 Urine Protein 100 H Urine Glucose (UA) Normal Urine Ketones 150 A* Urine Occult Blood 10 H Urine Nitrite Negative Urine Bilirubin 1 H Urine Urobilinogen 4 H Ur Leukocyte Esterase 25 H Urine RBC 0 SEEN Urine WBC 0-5 SEEN Ur Squamous Epith Cells 0 SEEN Urine Bacteria RARE Urine Mucus 0 SEEN ABG Data ABG results: ABG 04/16/22 20:16 Specimen Type MARILU VBG pH 7.39 VBG pO2 58 H VBG HCO3 20 L VBG Total CO2 21 L VBG O2 Sat (Calc) 90 H VBG Base Excess -5 L POC Mix VBG pCO2 Pt Tmp 32.7 L O2 Delivery Device Room Air Discharge Plan Triage Chief Complaint: Abd Pain ED Provider: Leilani Jurado Dx/Rx/DC Orders Clinical Impression: Abdominal pain of unknown etiology, Intractable nausea and vomiting Instructions: ED Vomiting (Adult), ED Abdominal Pain Unkn Cause Male... Prescriptions: New dicyclomine 20 mg tablet 20 mg PO TID PRN (Reason: breakthrough pain) Qty: 20 0RF omeprazole 20 mg capsule,delayed release(DR/EC) 20 mg PO DAILY Qty: 30 0RF buspirone 5 mg tablet 5 mg PO TID Qty: 90 0RF hyoscyamine sulfate [Levsin] 0.125 mg tablet 0.125 mg PO Q8H Qty: 90 0RF metoclopramide HCl [Reglan] 10 mg tablet 10 mg PO Q6H PRN (Reason: nausea and vomiting) Qty: 20 0RF No Action lisinopril 40 mg tablet 40 mg PO DAILY Qty: 30 0RF Primary Care Provider: Janet Maradiaga Referrals: Mendez Granados DO [Med Staff - Active Staff] - As soon as possible Janet Maradiaga PA [Primary Care Provider] - Activity Restrictions/Additional Instructions: Take medications as prescribed. Follow-up with GI. Stick to a liquid diet for the next 24 hours and then slowly advance as her symptoms improve. Disposition Disposition: Home, Self Care
[2022-04-16 18:55] LABS: Absolute Lymphocyte Count 1.89 X10^3/uL (0.83-4.51); Absolute Neutrophil Count 6.7 X10^3/uL (2.0-7.7); Basophil# 0.05 X10^3/uL; Basophil% 0.5 % (0-1); Hematocrit 45.8 % (40-54); Lymphocyte # 1.89 X10^3/ul (0.83-4.51); Lymphocyte % 20.1 % (19-41); Mean Corp Hgb Conc 34.9 g/dL (32-36); Mean Corpuscular Hgb 29.5 pg (27.0-32.0); Mean Corpuscular Volume 84.3 fL (80-94); Monocyte# 0.69 X10^3/uL; Monocyte% 7.3 % (0-10); NRBC Flagged by Analyzer 0 % (0-5); Neutrophil # 6.72 X10^3/uL (2.7-7.7); Neutrophil % 71.7 % (47-70); Platelet Count 397 K/mm3 (150-450); RBC Distribution Width CV 12.5 % (11.6-14.6); RBC Distribution Width SD 37.9 fl (35.1-43.9); Red Blood Count 5.43 M/mm3 (4.6-6.2); White Blood Count 9.4 K/mm3 (4.4-11.0)
[2022-04-16] MEDS: Morphine 4 MG/ML Syringe IV (18:57)
[2022-04-16 19:12] LABS: AST(SGOT) 23 U/L (15-37); Alanine Aminotransfer ALT/SGPT 63 U/L (16-61); Albumin, Serum 3.8 g/dL (3.2-5.0); Alkaline Phosphatase 71 U/L (45-117); Anion Gap 14 (5-15); BUN 16 mg/dL (7-18); Calcium,Total 9.2 mg/dL (8.5-10.1); Chloride 108 mmol/L (98-107); Creatinine, Serum 1.14 mg/dL (0.70-1.30); EST Glomerular Filtration Rate 79 mL/min (>60); Est Glom Filt Rate - Afr Amer 95 mL/min (>60); Estimated Creatinine Clearance 95.16 ml/min; Globulin 4.6 g/dL (2.2-4.2); Glucose 158 mg/dL (74-106); Lipase 177 U/L (73-393); Potassium 3.7 mmol/L (3.5-5.1); Protein, Total 8.4 g/dL (6.4-8.2); Sodium Level 139 mmol/L (136-145)
[2022-04-16] MEDS: 0.9% Normal Saline 1,000 ML 999 ML IV (19:55)
[2022-04-16 20:00] VITALS: PULSE 74; RESP 26
[2022-04-16 20:01] LABS: Color, Urine Yellow (Yellow); Glucose, Dipstick Normal (Normal); Leukocyte Esterase-Dipstick 25 /ul (Negative); Nitrite-Dipstick Negative (Negative); Occult Blood-Urine 10 /ul (Negative); Protein-Dipstick 100 mg/dl (Negative); Urine Clarity Clear (Clear); Urine Urobilinogen 4 mg/dl (Normal)
[2022-04-16 20:02] LABS: Mucous, Urine 0 SEEN /hpf (<or=2+); Red Blood Cells-Urine 0 SEEN /hpf (0-5); Squamous Epithelial Cells - UA 0 SEEN /hpf (0-5)
[2022-04-16 20:04] LABS: Urine Bilirubin Dipstick 1 mg/dL (Negative)
[2022-04-16 20:06] LABS: Ketone-Dipstick 150 mg/dl (Negative)
[2022-04-16 20:07] LABS: Bacteria RARE /hpf (None Seen); White Blood Cells 0-5 SEEN /hpf (0-5)
[2022-04-16 20:20] LABS: Blood Gas Specimen Type VEN; O2 Delivery Device Room Air; VBG BASE EXCESS -5 mmol/L (-1.0-3.5); VBG Bicarbonate 20 mmol/L (22-26); VBG PO2 58 mmHg (25-40); VBG SO2 90 % (50-70); VBG TCO2 21 mmol/L (23-33); VBG pCO2 32.7 mmHg (41-51); VBG pH 7.39 (7.32-7.42)
[2022-04-16] MEDS: Metoclopramide 10 MG/2 ML Vial 5 MG IV (20:56)
[2022-04-16 22:16] VITALS: PULSE 77; RESP 24; O2SAT 97
[2022-04-16] MEDS: LORazepam 2 MG/ML Syringe 0.5 MG IV (22:52)
[2022-04-16] MEDS: Dicyclomine 10 MG Capsule 20 MG PO (22:52)
== END 2022-04-16 23:30 | disposition home or self-care (01) ==
PROVIDERS: Emergency Provider Emergency Medicine; PCP Physician Assistant; Visit Provider Emergency Medicine
DX: R10.9 Unspecified abdominal pain (principal); R11.2 Nausea with vomiting, unspecified; F17.210 Nicotine dependence, cigarettes, uncomplicated; R68.83 Chills (without fever); I10 Essential (primary) hypertension
CPT/HCPCS: 80048; 80076; 81001; 82803; 83690; 85025; 96361; 96374; 96375; 99284; J7030; A4216

== ENCOUNTER 2023-01-10 02:34 | Emergency (ER) | payer SELFPAY ==
[2023-01-10 02:35] VITALS: BP 169/104; PULSE 65; RESP 18; TEMP 36.7; O2SAT 97; BMI 35.1
--- NOTE | 2023-01-10 02:47 | EDS_ITS ---
HPI HPI - GI History of Present Illness Chief Complaint: Abd Pain Detail of Chief Complaint: Epigastric abdominal pain. Nausea vomiting. Informant: patient Abdominal Pain/Flank Pain Onset: Month(s) Context: Gradual Onset Timing: Intermittent Quality: Aching and Burning Location: Epigastric Current Severity: Moderate Maximum Severity: Moderate Worsened by: Nothing Relieved by: Nothing Nausea/Vomiting/Emesis GI Symptom: Positive for Nausea and Vomiting Onset: Today and Yesterday Severity: Mild Diarrhea/Melena/Hematochezia GI Symptom: Negative for Diarrhea, Melena or Hematochezia Associated Symptoms Associated Symptoms: Negative for Dysuria, Frequency, Hematuria or Urgency Narrative Narrative: 32-year-old male no seen past medical or surgical history. Denies any prior a bdominal surgeries. He has had intermittent epigastric abdominal pain in the last several years. He has had 4 CAT scans done in the last 2 years that really did not show anything specific. He had a gastric emptying study which was unremarkable. He had a negative ultrasound of his gallbladder. States he gets this epigastric abdominal pain. He started having nausea and vomiting. No fever. States he has had some weight loss over the last several months. He does see the GI specialist Dr. Granados. He denies any fever. Prior similar symptoms: Yes Recent Illness/Hospitalization: No [facility] Medical History Hypertension Intractable nausea and vomiting Home Medications lisinopril 40 mg tablet 40 mg PO DAILY #30 tabs 10/02/21 [Rx Last Taken Unknown] metoclopramide HCl 10 mg tablet (Reglan) 10 mg PO Q6H PRN nausea and vomiting #20 tabs 04/16/22 [Rx Last Taken Unknown] omeprazole 20 mg capsule,delayed release 20 mg PO DAILY #30 caps 04/16/22 [Rx Last Taken Unknown] ondansetron 4 mg disintegrating tablet 4 mg PO Q6H PRN nausea and vomiting #10 tabs 01/10/23 [Rx Last Taken Unknown] Allergy/AdvReac Type Severity Reaction Status Date / Time No Known Allergies Allergy Verified 01/10/23 02:39 Family History Other Diabetes Social History household members: none Smoking Status: Current every day smoker tobacco type: e-cigarettes ROS ROS ED ROS Narrative Epigastric abdominal pain. Nausea and vomiting. Review of Systems ROS Unobtainable: Denies due to encephalopathy Constitutional Constitutional ED: Denies chills or fever(s) ENT ENT ED: Denies ear pain Cardiovascular Cardiovascular: Denies chest pain Respiratory/Chest Respiratory/Chest: Denies cough or dyspnea Gastrointestinal Gastrointestinal: Reports abdominal pain, nausea and vomiting; Denies constipation, diarrhea or melena Genitourinary Genitourinary ED: Denies dysuria or hematuria Musculoskeletal Musculoskeletal: Denies arthralgias Integumentary Denies abscess Neurologic Neurologic: Denies headache(s) Psychiatric Psychiatric: Denies anxiety Endocrine Endocrinology: Denies polydipsia Hematologic/Lymphatic Hematologic/Lymphatic: Denies easy bleeding Allergic/Immunologic Allergic/Immunologic ED: Denies mouth swelling EXAM Physical Exam Narrative Exam Narrative: 32-year-old male vital signs stable afebrile does not look septic toxic. Complaining of epigastric pain. Actively nauseated. H EENT exam unremarkable. Moist membranes. Neck nontender no lymphadenopathy. Lungs clear to auscultation bilaterally. Heart regular rhythm rate about 65 no murmur. Chest wall nontender. Abdomen soft nondistended normal bowel sounds no peritoneal signs. Tender in epigastric region only. Right upper right lower quadrant unremarkable. No Glover sign. No McBurney's point tenderness. No obstruction. No hernia or mass. Moving all 4 extremities. Nontender no edema. Normal motor strength. Back nontender. Neurologically is awake alert with no focal motor deficits. Const Vital Signs: 01/10/23 02:35 Temperature 98.0 F Temperature Source Temporal Pulse Rate 65 Respiratory Rate 18 Blood Pressure 169/104 H Blood Pressure Mean 125 Pulse Ox 97 Oxygen Delivery Method Room Air Positive well nourished and well developed; Negative for cachectic, contractures or unkempt General Appearance ED: well developed; Negative for unkempt, cachectic, contractures or pallor Nutritional Appearance: Negative for cachectic HEENT Reports moist mucous membranes; Denies dry mucous membranes normocephalic and atraumatic; Negative for trauma or tenderness Mouth ED: No dry mucous membranes Mouth: No dry mucous membranes Eyes PERRL and EOMs intact bilaterally General Eye ED: Negative for pale conjunctiva or scleral icterus Neck no lymphadenopathy, supple and no JVD General: Negative for tenderness Carotids: Negative for other Lymph Lymphatic: Negative for other Resp normal respiratory effort and clear to auscultation bilaterally Effort and Inspection: Negative for respiratory distress Auscultation: Negative for rales, rhonchi or wheezes Cardio regular rate, regular rhythm, S1 normal heart sound, S2 normal heart sound and no murmurs Rate: Negative for bradycardia or tachycardic Rhythm: Negative for abnormal rhythm GI non-distended and no masses; Negative for non-tender GI Narrative: Epigastric tenderness only. No obstruction. No peritoneal signs. No mass. Inspection: Negative for abdominal distention Auscultation: normoactive bowel sounds Palpation: soft and tender; Negative for guarding, rigid, hepatomegaly, splenomegaly, hernia, mass, pulsatile mass or rebound tenderness present Back/Spine no CVA tenderness General Back: Negative for CVA tenderness Cervical Spine: Negative for cervical spine tenderness Thoracic Spine / Upper Back: Negative for thoracic spinal tenderness Lumbar Spine / Lower Back: Negative for lumbar spinal tenderness Coccyx: Negative for other Extremity full ROM General Extremety ED: Negative for edema or tenderness General Extremity: Negative for edema Neuro CN's II-XII intact bilaterally and moves all extremities Sensorium / Orientation: alert, oriented to person, oriented to place and oriented to time; Negative for orientation impaired, confused, lethargic or stuporous Motor Exam: strength 5/5 throughout Psych mental status grossly normal and thought process normal Appearance: Negative for unkempt Attitude: No agitated Mood & Affect: Negative for depressed, anxious or tearful Skin no wounds General Skin Exam: Negative for jaundice or pallor Lesions: no lesions Rashes: no rashes Trauma: Negative for abrasion Nails: Negative for discolored MDM MDM MDM Narrative Medical decision making narrative: 32-year-old male with 2-year history of epigastric abdominal pain. Complain the same. Nausea and vomiting. Treated with IV Zofran. IV fluids. IV morphine. He has had significant work-up in the last 2 years. For negative abdominal CAT scans done at this facility. Negative ultrasound. A negative gastric emptying study. He already sees a GI specialist. Screening labs are being obtained. At this time I do not think he needs any imaging. Repeat exam no significant change. He is vomiting significantly. Given a second dose of Zofran. Patient will be placed under the cyclic vomiting pro tocol. He will be given IV Ativan and Pepcid. Repeat exam at 4:32 AM he is getting better. Nausea is improving. He still having pain and would like something more for pain. Will be given IV Toradol. I explained to the patient the goal would be to get him feeling good enough to be discharged. I do not think he needs any imaging he has had 4 CAT scans in the last 2 years plus a gallbladder ultrasound plus a gastric emptying study. Repeat exam at 6:40 AM patient is doing much better. His nausea is resolved. His abdominal pain is almost gone. He and I discussed his lab test. He is comf ortable being discharged home. He is going to get a ride since he was treated with IV morphine shortly after arrival. He has been watched over 4 hours. He has appointment to see his welt maker today around 9 AM. History & Record Review Discussion w/independent historian: Patient Lab Data Attestation: I reviewed the patient's lab results. Lab results narrative: CBC shows an elevated white count at 13.1. Has had this before. He is actively vomiting which may cause this. H&H is 16.4 and 47. Platelets 391. CMP shows gap 14. BUN and creatinine 19 and 1.3. Glucose 177. Liver enzymes are unremarkable. Total bilirubin is 1.3. Lipase is normal at 70. Labs: Laboratory Results - last 24 hr 01/10/23 02:43 WBC 13.1 H RBC 5.67 Hgb 16.4 Hct 47.7 MCV 84.1 MCH 28.9 MCHC 34.4 RDW Std Deviation 37.8 RDW Coeff of Meño 12.5 Plt Count 391 MPV 9.4 Immature Gran % (Auto) 0.500 Neut % (Auto) 63.9 Lymph % (Auto) 23.4 [place] % (Auto) 11.1 H Eos % (Auto) 0.3 Baso % (Auto) 0.8 Absolute Neuts (auto) 8.4 H Absolute Lymphs (auto) 3.07 Nucleated RBC % 0 Sodium 138 Potassium 3.5 Chloride 105 Carbon Dioxide 19.0 L Anion Gap 14 BUN 19 H Creatinine 1.33 H Estim Creat Clear Calc 79.00 Est GFR (MDRD) Af Amer 79 Est GFR (MDRD) Non-Af 65 BUN/Creatinine Ratio 14.3 Glucose 177 H Calcium 10.0 Total Bilirubin 1.30 H AST 29 ALT 45 Alkaline Phosphatase 63 Total Protein 8.7 H Albumin 4.0 Globulin 4.7 H Albumin/Globulin Ratio 0.9 Lipase 70 Discharge Plan Triage Chief Complaint: Abd Pain Other Complaint: Flank Pain ED Provider: Stevo Haque Dx/Rx/DC Orders Clinical Impression: Abdominal pain of unknown etiology, Cyclical vomiting Instructions: Abdominal Pain, ED Cyclic Vomiting Syndrome Prescriptions: New ondansetron 4 mg tablet,disintegrating 4 mg PO Q6H PRN (Reason: nausea and vomiting) Qty: 10 0RF No Action lisinopril 40 mg tablet 40 mg PO DAILY Qty: 30 0RF omeprazole 20 mg capsule,delayed release(DR/EC) 20 mg PO DAILY Qty: 30 0RF metoclopramide HCl [Reglan] 10 mg tablet 10 mg PO Q6H PRN (Reason: nausea and vomiting) Qty: 20 0RF Primary Care Provider: Janet Maradiaga Referrals: Mendez Granados DO [Med Staff - Active Staff] - Keep Hugo appointment Janet Maradiaga PA [Primary Care Provider] - Activity Restrictions/Additional Instructions: Follow-up with your appointment with Dr. Granados. Plenty of fluids and rest. Increase diet slowly as tolerated. Zofran as needed for nausea. Disposition Disposition: Home, Self Care
[2023-01-10 02:53] LABS: Absolute Lymphocyte Count 3.07 X10^3/uL (0.83-4.51); Absolute Neutrophil Count 8.4 X10^3/uL (2.0-7.7); Basophil% 0.8 % (0-1); Eosinophil# 0.04 X10^3/uL; Eosinophils% 0.3 % (0-5); Hematocrit 47.7 % (40-54); Hemoglobin 16.4 g/dL (13.0-16.5); Lymphocyte # 3.07 X10^3/ul (0.83-4.51); Lymphocyte % 23.4 % (19-41); Mean Corp Hgb Conc 34.4 g/dL (32-36); Mean Corpuscular Hgb 28.9 pg (27.0-32.0); Mean Corpuscular Volume 84.1 fL (80-94); Mean Platelet Vol. 9.4 fl (6.2-12.0); Monocyte# 1.45 X10^3/uL; Monocyte% 11.1 % (0-10); NRBC Flagged by Analyzer 0 % (0-5); Neutrophil # 8.38 X10^3/uL (2.7-7.7); Neutrophil % 63.9 % (47-70); Platelet Count 391 K/mm3 (150-450); RBC Distribution Width CV 12.5 % (11.6-14.6); RBC Distribution Width SD 37.8 fl (35.1-43.9); Red Blood Count 5.67 M/mm3 (4.6-6.2); White Blood Count 13.1 K/mm3 (4.4-11.0)
[2023-01-10] MEDS: morphine 8 MG/ML Syringe IV (02:54)
[2023-01-10] MEDS: Ondansetron 4 MG/2 ML Vial IV ×2 (02:54→03:31)
[2023-01-10] MEDS: 0.9% Normal Saline 1,000 ML 1000 ML IV (02:54)
[2023-01-10 03:36] LABS: ALB/GLOB Ratio 0.9 RATIO (0.9-2.4); AST(SGOT) 29 U/L (15-37); Alanine Aminotransfer ALT/SGPT 45 U/L (16-61); Alkaline Phosphatase 63 U/L (45-117); Anion Gap 14 (5-15); BUN 19 mg/dL (7-18); BUN/Creat Ratio 14.3 RATIO (10-20); Chloride 105 mmol/L (98-107); Creatinine, Serum 1.33 mg/dL (0.70-1.30); EST Glomerular Filtration Rate 65 mL/min (>60); Est Glom Filt Rate - Afr Amer 79 mL/min (>60); Globulin 4.7 g/dL (2.2-4.2); Glucose 177 mg/dL (74-106); Lipase 70 U/L (13-75); Potassium 3.5 mmol/L (3.5-5.1); Protein, Total 8.7 g/dL (6.4-8.2); Sodium Level 138 mmol/L (136-145)
[2023-01-10] MEDS: LORazepam 2 MG/ML Syringe 1 MG IV (03:53)
[2023-01-10] MEDS: Famotidine 200 MG/20 ML MDV 20 MG in 0.9% Normal Saline (Pres. free 8 ML 300 MG IV (03:54)
[2023-01-10] MEDS: Ketorolac 30 MG/ML Syringe IV (04:37)
[2023-01-10] MEDS: Dicyclomine 10 MG Capsule 20 MG PO (04:37)
[2023-01-10 06:47] VITALS: PULSE 74; RESP 18; O2SAT 97
== END 2023-01-10 06:47 | disposition home or self-care (01) ==
PROVIDERS: Emergency Provider Emergency Medicine; PCP Physician Assistant; Visit Provider Emergency Medicine
DX: R10.13 Epigastric pain (principal); R11.15 Cyclical vomiting syndrome unrelated to migraine; F17.290 Nicotine dependence, other tobacco product, uncomplicated
CPT/HCPCS: 80053; 83690; 85025; 96361; 96374; 96375; 96376; 99283; A4216; J2405; J3490

== ENCOUNTER → 2023-01-10 | Outpatient (CLI) | payer SELFPAY ==
[2023-01-10 11:09] LABS: Erythrocyte Sedimentation Rate 24 mm/hr (0-20)
[2023-01-10 11:10] LABS: Platelet Count 388 K/mm3 (150-450); RET-HE 32.6 pg (30-35); Reticulocyte Count 1.17 % (0.5-1.5)
[2023-01-10 11:31] LABS: Vitamin B12 695 pg/mL (211-911)
[2023-01-10 12:01] LABS: Amylase 34 U/L (25-115); CRP < 2.90 mg/L (0.0-3.0); Ferritin 260 ng/mL (26-388); Free T3 3.9 pg/mL (2.18-3.98); Iron 70 ug/dL (65-175); LDH 184 U/L (87-241); Lipase 64 U/L (13-75); T4 Free Direct 1.44 ng/dL (0.76-1.46)
[2023-01-14 00:11] LABS: Anti-Centromere B Ab <0.2 AI (0.0-0.9); Anti-Chromatin <0.2 AI (0.0-0.9); Anti-Jo <0.2 AI (0.0-0.9); Anti-Scleroderma-70 AB 0.6 AI (0.0-0.9); Anti-dsDNA Ab <1 IU/mL (0-9); Beef <0.10 kU/L (Class 0); Chocolate <0.10 kU/L (Class 0); Clam <0.10 kU/L (Class 0); Codfish <0.10 kU/L (Class 0); Corn <0.10 kU/L (Class 0); Egg, White <0.10 kU/L (Class 0); Egg, Whole <0.10 kU/L (Class 0); Milk (Cow) <0.10 kU/L (Class 0); Peanut <0.10 kU/L (Class 0); Pork <0.10 kU/L (Class 0); RNP Ab 0.2 AI (0.0-0.9); SCALLOP <0.10 kU/L (Class 0); SESAME SEED <0.10 kU/L (Class 0); SJOGREN'S Anti-SS-A test < 0.2 AI (0.0-0.9); SJOGREN'S Anti-SS-B test < 0.2 AI (0.0-0.9); Shrimp <0.10 kU/L (Class 0); Smith Ab <0.2 AI (0.0-0.9); Soybean <0.10 kU/L (Class 0); Walnut, (Food) <0.10 kU/L (Class 0); Wheat <0.10 kU/L (Class 0)
[2023-01-14 04:07] LABS: Albumin 3.7 g/dL (2.9-4.4); Alpha-1-Globulins 0.2 g/dL (0.0-0.4); Alpha-2-Globulins 0.8 g/dL (0.4-1.0); Cytoplasmic Ab (C-ANCA) <1:20 titer (Neg:<1:20); Endomysial Antibody IgA Negative (Negative); Gamma Globulin 1.2 g/dL (0.4-1.8); Gastrin, Serum < 10 pg/mL (0-115); Immunoglobulin A 651 mg/dL (90-386); Immunoglobulin E < 2 IU/mL (6-495); Immunoglobulin G 1265 mg/dL (603-1613); Immunoglobulin M 132 mg/dL (20-172); PROEL- TOTAL PROTEIN 7.5 g/dL (6.0-8.5); Perinuclear Ab (P-ANCA) <1:20 titer (Neg:<1:20); t-Transglutaminase IgA <2 U/mL (0-3)
== END | disposition home or self-care (01) ==
LOC: LAB 10:10
PROVIDERS: PCP Physician Assistant; Referring Provider Internal Medicine Gastroenterology; Visit Provider Internal Medicine Gastroenterology
DX: R11.15 Cyclical vomiting syndrome unrelated to migraine (principal); R10.9 Unspecified abdominal pain
CPT/HCPCS: 36415; 82150; 82607; 82728; 82746; 82784; 82785; 82941; 83516; 83540; 83615; 83690; 84165; 84439; 84443; 84481; 85045; 85652; 86003; 86005; 86140; 86225; 86235; 86255; 86256; 86334

== ENCOUNTER 2023-01-11 07:44 | Emergency (ER) | payer SELFPAY ==
[2023-01-11 07:45] VITALS: BP 178/105; PULSE 86; RESP 14; TEMP 36.6; O2SAT 98; BMI 34.5
--- NOTE | 2023-01-11 08:22 | ED.VIS.GI ---
HPI HPI - GI History of Present Illness Chief Complaint: Abd Pain Abdominal Pain/Flank Pain Onset: Today Context: Sudden Onset Timing: Continuous Quality: Burning and Sharp Location: Epigastric Worsened by: Nothing Relieved by: Nothing Nausea/Vomiting/Emesis GI Symptom: Positive for Nausea and Vomiting Onset: Today Quality: Positive for Blood streaks Severity: Severe Diarrhea/Melena/Hematochezia GI Symptom: Positive for Diarrhea Onset: Today Stool Quality: Positive for Loose Associated Symptoms Associated Symptoms: Positive for Hematuria; Negative for Dysuria or Frequency Narrative Narrative: Patient presents with nausea, vomiting, diarrhea, and abdominal pain that began again today. Patient states she was seen here yesterday for the same thing. Patient states she also saw Dr. Granados yesterday. Patient states that vomiting this morning. Patient states there were some blood streaks in his emesis today. Patient states he also has had some diarrhea. Patient states his pain is over the epigastric area. Patient denies any radiation into his back. Patient describes his pain as throbbing, sharp, and burning. Patient denies any dysuria or urinary frequency. Patient does think there may be some blood in his urine as well. Patient admits to occasional marijuana use. Patient states his last use was approximately 1 week ago. [facility] Medical History Hypertension Intractable nausea and vomiting Home Medications lisinopril 40 mg tablet 40 mg PO DAILY #30 tabs 10/02/21 [Rx Last Taken Unknown] omeprazole 20 mg capsule,delayed release 20 mg PO DAILY #30 caps 04/16/22 [Rx Last Taken Unknown] dicyclomine 20 mg tablet 20 mg PO TID PRN abdominal pain #90 tabs 01/10/23 [Rx Last Taken Unknown] metoclopramide HCl 10 mg tablet (Reglan) 10 mg PO Q6H PRN nausea and vomiting #20 tabs 01/10/23 [Rx Last Taken Unknown] ondansetron 4 mg disintegrating tablet 4 mg PO Q6H PRN nausea and vomiting #10 tabs 01/10/23 [Rx Last Taken Unknown] tramadol 50 mg tablet 50 mg PO Q6H PRN pain #30 tabs 01/10/23 [Rx Last Taken Unknown] Allergy/AdvReac Type Severity Reaction Status Date / Time No Known Allergies Allergy Verified 01/10/23 02:39 Family History Other Diabetes Surgical History no surgical history no surgical history Social History (Updated 01/11/23 @ 08:[address] Cuco Sanabria, DO) household members: none Smoking Status: Current every day smoker tobacco type: e-cigarettes substance use type: marijuana ROS ROS ED Constitutional Constitutional ED: Denies chills or fever(s) Eyes Eyes: Denies blurry vision or change in vision ENT ENT ED: Denies rhinorrhea or sore throat Cardiovascular Cardiovascular: Reports chest pain; Denies palpitations Respiratory/Chest Respiratory/Chest: Denies cough or dyspnea Gastrointestinal Gastrointestinal: Reports abdominal pain, diarrhea, nausea and vomiting Genitourinary Genitourinary ED: Reports hematuria; Denies dysuria Musculoskeletal Musculoskeletal: Denies back pain or neck pain Integumentary Denies abscess or rash Neurologic Neurologic: Denies headache(s) or weakness Allergic/Immunologic Allergic/Immunologic ED: Denies mouth swelling or urticaria EXAM Physical Exam Const Vital Signs: 01/11/23 07:45 01/11/23 09:44 01/11/23 11:00 Temperature 98 F Temperature Source Temporal Pulse Rate 86 Respiratory Rate 14 18 18 Blood Pressure 178/105 H Blood Pressure Mean 129 Pulse Ox 98 Oxygen Delivery Method Room Air Positive well nourished and well developed General Appearance ED: well developed HEENT Reports moist mucous membranes Neck supple and no JVD Resp normal respiratory effort and clear to auscultation bilaterally Cardio regular rate, regular rhythm and no murmurs GI normal to inspection, nondistended, normoactive bowel sounds Palpation: soft and tender epigastric, LUQ and RUQ; Negative for rebound tenderness present Extremity normal to inspection General Extremety ED: Negative for edema or tenderness General Extremity: Negative for edema Neuro oriented x3, CN's II-XII intact bilaterally and no sensory deficits noted Sensorium / Orientation: alert Motor Exam: strength 5/5 throughout Psych mental status grossly normal Skin no rashes or lesions noted MDM MDM MDM Narrative Medical decision making narrative: Differential diagnosis includes gastric ulcer, duodenal ulcer, bowel obstruction, perforation, pancreatitis, gastroenteritis, ureteral calculus, pyelonephritis, and cyclic vomiting. CBC will be obtained to assess for leukocytosis and anemia. Comprehensive metabolic profile will be obtained to assess for electrolyte abnormality, renal function, and hepatic function. Lipase will be obtained to assess for pancreatitis. Urinalysis will be obtained to assess for hematuria and urinary tract infection. CT scan of the abdomen pelvis will be obtained to assess for bowel obstruction, perforation, and ureteral calculus. Lab Data Attestation: I reviewed the patient's lab results. Lab results narrative: CBC was reviewed. There is a mild leukocytosis of 14.2. The remainder is within normal limits. Comprehensive metabolic profile was reviewed. Potassium was slightly low at 3.1. Glucose was slightly elevated at 141 and total bilirubin was slightly elevated at 1.2. The remainder was within normal limits. Lipase was reviewed and was only slightly elevated at 89. Urinalysis was reviewed. There is no evidence of urinary tract infection or hematuria. Labs: Laboratory Results - last 24 hr 01/11/23 01/11/23 01/11/23 08:15 08:48 10:40 WBC 14.2 H RBC 5.48 Hgb 16.2 Hct 47.8 MCV 87.2 MCH 29.6 MCHC 33.9 RDW Std Deviation 39.6 RDW Coeff of Meño 12.5 Plt Count 403 MPV 10.5 Immature Gran % (Auto) 0.600 Neut % (Auto) 70.2 H Lymph % (Auto) 19.8 [place] % (Auto) 8.5 Eos % (Auto) 0.3 Baso % (Auto) 0.6 Absolute Neuts (auto) 10.0 H Absolute Lymphs (auto) 2.82 Nucleated RBC % 0 Sodium Cancelled 138 Potassium Cancelled 3.1 L Chloride Cancelled 107 Carbon Dioxide Cancelled 21.0 Anion Gap Cancelled 10 BUN Cancelled 18 Creatinine Cancelled 1.10 Estim Creat Clear Calc Cancelled 95.52 Est GFR (MDRD) Af Amer Cancelled 99 Est GFR (MDRD) Non-Af Cancelled 82 BUN/Creatinine Ratio Cancelled 16.4 Glucose Cancelled 141 H Calcium Cancelled 9.0 Total Bilirubin Cancelled 1.20 H AST Cancelled 15 ALT Cancelled 41 Alkaline Phosphatase Cancelled 60 Total Protein Cancelled 7.9 Albumin Cancelled 3.6 Globulin Cancelled 4.3 H Albumin/Globulin Ratio Cancelled 0.8 L Lipase Cancelled 89 H Urine Color Yellow Urine Clarity Clear Urine pH 5.0 Ur Specific [place] 1.025 Urine Protein 30 H Urine Glucose (UA) Normal Urine Ketones 50 H Urine Occult Blood 10 H Urine Nitrite Negative Urine Bilirubin 1 H Urine Urobilinogen 4 H Ur Leukocyte Esterase 25 H Urine RBC 0-5 SEEN Urine WBC 0-5 SEEN Ur Squamous Epith Cells 0 SEEN Urine Bacteria 0 SEEN Urine Mucus 0 SEEN Radiography Diagnostic Testing: Clinical Impression(s) from Imaging Studies Abdomen/Pelvis CT 01/11/23 08:29 IMPRESSION: Fatty infiltration of the liver. Stable L5 pars defects. Colonic diverticulosis. Electronically Signed: Ama Hagan MD at 13:52 EDT , CT scan of the abdomen pelvis was obtained. There is fatty infiltration of the liver. There is diverticulosis but no evidence of diverticulitis. There is no acute abnormality noted. This was interpreted by the radiologist and was also independently reviewed by myself. Treatment and Re-Evaluation :: Patient was given IV fluids, morphine, and Zofran initially. Patient was given a dose of Bentyl and Reglan here. Patient was feeling better after this. Patient was given a GI cocktail. Patient states this also helped with his pain. Patient states he was given prescription by Dr. Granados yesterday. Patient states that when he picked them up from the pharmacy there was only 1 prescription there but he was supposed to have 4 prescriptions. I called the pharmacy to check on the status of his prescriptions. Pharmacy stated that there were 3 prescriptions down there ready to be picked up. Patient was instructed to continue his medications as previously prescribed. Patient was instructed to follow-up with his primary care physician in 5 to 7 days. Patient understood and was agreeable with the plan. All questions were answered. Patient left prior to receiving discharge instructions. Discharge Plan Triage Chief Complaint: Abd Pain ED Provider: Cuco Sanabria Dx/Rx/DC Orders Clinical Impression: Abdominal pain of unknown etiology, Nausea and vomiting Instructions: ED Abdominal Pain Unkn Cause Male... Prescriptions: No Action dicyclomine 20 mg tablet 20 mg PO TID PRN (Reason: abdominal pain) Qty: 90 0RF tramadol 50 mg tablet 50 mg PO Q6H PRN (Reason: pain) Qty: 30 0RF ondansetron 4 mg tablet,disintegrating 4 mg PO Q6H PRN (Reason: nausea and vomiting) Qty: 10 0RF metoclopramide HCl [Reglan] 10 mg tablet 10 mg PO Q6H PRN (Reason: nausea and vomiting) Qty: 20 0RF lisinopril 40 mg tablet 40 mg PO DAILY Qty: 30 0RF omeprazole 20 mg capsule,delayed release(DR/EC) 20 mg PO DAILY Qty: 30 0RF Primary Care Provider: Janet Maradiaga Referrals: Janet Maradiaga, FRANCISCO [Primary Care Provider] - 5-7 Days Disposition Disposition: Home, Self Care
--- NOTE | 2023-01-11 08:29 | CT_ITS ---
STUDY: CT ABDOMEN AND PELVIS WITH CONTRAST - URINARY TRACT REASON FOR EXAM: Male, 32 years old. Abdominal pain -- IV PO Contrast RADIATION DOSAGE (If Supplied By Facility): CTDIvol = ( 15.08 ) mGy, DLP = ( 1251.44 ) mGycm TECHNIQUE: Oral and amp; IV Gastrografin and amp; 100mL [id number]-300 was administered. Transaxial images were obtained from the dome of the diaphragm to the symphysis pubis subsequent to intravenous contrast administration. Multiplanar coronal and sagittal images were reformatted. Individualized Dose Optimization Techniques Were Used For This CT. COMPARISON: Prior study dated: September 28, 2021 FINDINGS: The visualized lung bases are unremarkable. The visualized portions of the heart are within normal limits. There is decreased attenuation of the liver consistent with steatosis. Normal gallbladder and extrahepatic biliary system. Normal spleen. Normal pancreas. Normal bilateral adrenal glands. Normal visualized stomach. Normal small intestine. There are multiple colonic diverticula consistent with diverticulosis. The appendix is visualized and appears normal. Normal abdominal aorta. No retroperitoneal adenopathy. Normal right kidney. Normal left kidney. Normal urinary bladder. Normal abdominal wall. There are stable bilateral L5 pars defects. CT/Abdomen/Pelvis WITH Contrast IMPRESSION: Fatty infiltration of the liver. Stable L5 pars defects. Colonic diverticulosis. Electronically Signed: Ama Hagan MD at 13:52 EDT ,
[2023-01-11 08:39] LABS: Absolute Lymphocyte Count 2.82 X10^3/uL (0.83-4.51); Basophil# 0.08 X10^3/uL; Basophil% 0.6 % (0-1); Eosinophil# 0.04 X10^3/uL; Eosinophils% 0.3 % (0-5); Hematocrit 47.8 % (40-54); Hemoglobin 16.2 g/dL (13.0-16.5); Lymphocyte # 2.82 X10^3/ul (0.83-4.51); Lymphocyte % 19.8 % (19-41); Mean Corp Hgb Conc 33.9 g/dL (32-36); Mean Corpuscular Hgb 29.6 pg (27.0-32.0); Mean Corpuscular Volume 87.2 fL (80-94); Mean Platelet Vol. 10.5 fl (6.2-12.0); Monocyte# 1.21 X10^3/uL; Monocyte% 8.5 % (0-10); NRBC Flagged by Analyzer 0 % (0-5); Neutrophil # 9.99 X10^3/uL (2.7-7.7); Neutrophil % 70.2 % (47-70); Platelet Count 403 K/mm3 (150-450); RBC Distribution Width CV 12.5 % (11.6-14.6); RBC Distribution Width SD 39.6 fl (35.1-43.9); Red Blood Count 5.48 M/mm3 (4.6-6.2); White Blood Count 14.2 K/mm3 (4.4-11.0)
[2023-01-11] MEDS: Ondansetron 4 MG/2 ML Vial IV (08:39)
[2023-01-11] MEDS: 0.9% Normal Saline 1,000 ML 1000 ML IV (08:39)
[2023-01-11] MEDS: Morphine 4 MG/ML Syringe IV ×2 (08:39→13:06)
[2023-01-11 09:13] LABS: ALB/GLOB Ratio 0.8 RATIO (0.9-2.4); AST(SGOT) 15 U/L (15-37); Alanine Aminotransfer ALT/SGPT 41 U/L (16-61); Albumin, Serum 3.6 g/dL (3.2-5.0); Alkaline Phosphatase 60 U/L (45-117); Anion Gap 10 (5-15); BUN 18 mg/dL (7-18); BUN/Creat Ratio 16.4 RATIO (10-20); Chloride 107 mmol/L (98-107); EST Glomerular Filtration Rate 82 mL/min (>60); Est Glom Filt Rate - Afr Amer 99 mL/min (>60); Estimated Creatinine Clearance 95.52 ml/min; Globulin 4.3 g/dL (2.2-4.2); Glucose 141 mg/dL (74-106); Lipase 89 U/L (13-75); Potassium 3.1 mmol/L (3.5-5.1); Protein, Total 7.9 g/dL (6.4-8.2); Sodium Level 138 mmol/L (136-145)
[2023-01-11 09:44] VITALS: RESP 18
[2023-01-11] MEDS: Dicyclomine 20 MG/2 ML Vial IM (09:52)
[2023-01-11] MEDS: Metoclopramide 10 MG/2 ML Vial IV (09:52)
[2023-01-11 10:44] LABS: Bacteria 0 SEEN /hpf (None Seen); Mucous, Urine 0 SEEN /hpf (<or=2+); Squamous Epithelial Cells - UA 0 SEEN /hpf (0-5)
[2023-01-11 10:46] LABS: Color, Urine Yellow (Yellow); Glucose, Dipstick Normal (Normal); Ketone-Dipstick 50 mg/dl (Negative); Leukocyte Esterase-Dipstick 25 /ul (Negative); Nitrite-Dipstick Negative (Negative); Occult Blood-Urine 10 /ul (Negative); Protein-Dipstick 30 mg/dl (Negative); Specific Gravity, Urine 1.025 (1.002-1.030); Urine Bilirubin Dipstick 1 mg/dL (Negative); Urine Clarity Clear (Clear); Urine Urobilinogen 4 mg/dl (Normal)
[2023-01-11 10:59] LABS: Red Blood Cells-Urine 0-5 SEEN /hpf (0-5); White Blood Cells 0-5 SEEN /hpf (0-5)
[2023-01-11 11:00] VITALS: RESP 18
[2023-01-11] MEDS: Mag Hydrox/Al Hydrox/Simeth 30 ML UDC PO (13:35)
[2023-01-11 18:54] VITALS: RESP 16
== END 2023-01-11 16:15 | disposition home or self-care (01) ==
PROVIDERS: Emergency Provider Emergency Medicine; PCP Physician Assistant; Visit Provider Emergency Medicine
DX: R10.9 Unspecified abdominal pain (principal); R11.2 Nausea with vomiting, unspecified; F12.90 Cannabis use, unspecified, uncomplicated; F17.290 Nicotine dependence, other tobacco product, uncomplicated
CPT/HCPCS: 74177; 80053; 81001; 83690; 85025; 96361; 96372; 96374; 96375; 96376; 99283; J7030; Q9967; A4216; J2405

== ENCOUNTER 2023-03-12 22:51 | Emergency (ER) | payer SELFPAY ==
[2023-03-12 22:52] VITALS: BP 165/90; PULSE 74; RESP 15; TEMP 36.7; O2SAT 97; BMI 32.1
--- NOTE | 2023-03-13 00:08 | CT_ITS ---
EXAMINATION: CTA ABDOMEN AND PELVIS INDICATION: abd pain TECHNIQUE: Routine abdominal CT angiogram protocol was performed with IV contrast. MIP images provided. A radiation dose optimization technique was used for this scan. IV Contrast dosage and agent: RADIATION DOSAGE (If Supplied By Facility): CTDIvol = ( 43.27 ) mGy, DLP = ( 1169.41 ) mGycm COMPARISON: FINDINGS: ANGIOGRAPHIC FINDINGS: Proximal abdominal aorta, celiac trunk, superior mesenteric artery, bilateral duplicated renal arteries, and inferior mesenteric artery are widely patent. Infrarenal abdominal aorta is normal. Bilateral common iliac, internal iliac and external iliac arteries are widely patent. Bilateral common femoral arteries at the visualized portions of bilateral superficial femoral and profunda femoral arteries are widely patent. NONANGIOGRAPHIC FINDINGS: Lung bases: Clear. Liver: Normal. No bile ductal dilatation. Gallbladder: Normal. Spleen: Normal. Adrenal gland: Normal. Kidneys: Normal. No hydronephrosis or stone formation. Pancreas:Normal. Bowel gas pattern: Nonobstructive. Appendix: Normal. Free air: None. Free fluid: None. Pelvis: Pelvic organs: No mass lesion noted. Bones: No acute skeletal abnormality. Chronic bilateral L5 pars defects. Adenopathy: No significant pathologic adenopathy detected. Other: None. CT/CTA Abd/Pelvis W/WO Contrast IMPRESSION: Normal CT angiogram of the abdomen and pelvis . Electronically Signed: Tristen Mcmahon MD at 1:37 EDT ,
[2023-03-13] MEDS: Morphine 4 MG/ML Syringe IV (00:19)
[2023-03-13] MEDS: 0.9% Normal Saline (1000mL) 1,000 ML 1000 ML IV (00:19)
[2023-03-13] MEDS: Ondansetron 4 MG/2 ML Vial IV ×2 (00:19→04:13)
[2023-03-13 00:38] LABS: Absolute Lymphocyte Count 3.44 X10^3/uL (0.83-4.51); Absolute Neutrophil Count 6.9 X10^3/uL (2.0-7.7); Basophil# 0.08 X10^3/uL; Basophil% 0.7 % (0-1); Eosinophil# 0.03 X10^3/uL; Eosinophils% 0.3 % (0-5); Hematocrit 45.6 % (40-54); Hemoglobin 16.1 g/dL (13.0-16.5); Lymphocyte # 3.44 X10^3/ul (0.83-4.51); Lymphocyte % 28.9 % (19-41); Mean Corp Hgb Conc 35.3 g/dL (32-36); Mean Corpuscular Hgb 29.4 pg (27.0-32.0); Mean Corpuscular Volume 83.4 fL (80-94); Mean Platelet Vol. 9.3 fl (6.2-12.0); Monocyte# 1.42 X10^3/uL; Monocyte% 11.9 % (0-10); NRBC Flagged by Analyzer 0 % (0-5); Neutrophil # 6.88 X10^3/uL (2.7-7.7); Neutrophil % 57.7 % (47-70); Platelet Count 437 K/mm3 (150-450); RBC Distribution Width SD 39.5 fl (35.1-43.9); Red Blood Count 5.47 M/mm3 (4.6-6.2); White Blood Count 11.9 K/mm3 (4.4-11.0)
[2023-03-13 00:51] LABS: AST(SGOT) 22 U/L (15-37); Alanine Aminotransfer ALT/SGPT 44 U/L (16-61); Albumin, Serum 4.1 g/dL (3.2-5.0); Alkaline Phosphatase 62 U/L (45-117); Anion Gap 13 (5-15); BUN 15 mg/dL (7-18); BUN/Creat Ratio 12.1 RATIO (10-20); Bilirubin, Direct 0.28 mg/dL (0.00-0.30); Calcium,Total 9.7 mg/dL (8.5-10.1); Chloride 108 mmol/L (98-107); Creatinine, Serum 1.24 mg/dL (0.70-1.30); EST Glomerular Filtration Rate 71 mL/min (>60); Est Glom Filt Rate - Afr Amer 86 mL/min (>60); Estimated Creatinine Clearance 83.94 ml/min; Globulin 4.2 g/dL (2.2-4.2); Glucose 176 mg/dL (74-106); Lipase 47 U/L (13-75); Potassium 3.2 mmol/L (3.5-5.1); Protein, Total 8.3 g/dL (6.4-8.2); Sodium Level 138 mmol/L (136-145)
[2023-03-13 01:14] LABS: Lactic Acid 2.6 mmol/L (0.4-1.9)
[2023-03-13] MEDS: Dicyclomine 20 MG/2 ML Vial IM (01:15)
[2023-03-13] MEDS: HYDROmorphone 1 MG/ML Syringe IV (01:15)
[2023-03-13 03:51] LABS: Lactic Acid 1.1 mmol/L (0.4-1.9)
--- NOTE | 2023-03-13 04:00 | EX.ED.DYSGE1 ---
HPI History of Present Illness Chief Complaint: Abd Pain Informant: patient Onset/Context/Timing Onset: Days Current Severity: Severe Maximum Severity: Severe Narrative Narrative: Patient presents secondary to abdominal pain with vomiting. He has had problems with severe abdominal pain with no definitive cause found as of yet. He states this particular bout started on Friday. His vomiting started on Friday. He has not had a fever. He does not have diarrhea. Pain is diffuse in location. [facility] Medical History Hypertension Intractable nausea and vomiting Home Medications lisinopril 40 mg tablet 40 mg PO DAILY #30 tabs 10/02/21 [Rx Last Taken Unknown] omeprazole 20 mg capsule,delayed release 20 mg PO DAILY #30 caps 04/16/22 [Rx Last Taken Unknown] dicyclomine 20 mg tablet 20 mg PO TID PRN abdominal pain #90 tabs 01/10/23 [Rx Last Taken Unknown] metoclopramide HCl 10 mg tablet (Reglan) 10 mg PO Q6H PRN nausea and vomiting #20 tabs 01/10/23 [Rx Last Taken Unknown] ondansetron 4 mg disintegrating tablet 4 mg PO Q6H PRN nausea and vomiting #10 tabs 01/10/23 [Rx Last Taken Unknown] tramadol 50 mg tablet 50 mg PO Q6H PRN pain #30 tabs 01/10/23 [Rx Last Taken Unknown] buspirone 5 mg tablet 5 mg PO TID 30 days #90 tabs 03/06/23 [Rx Last Taken Unknown] dicyclomine 20 mg tablet 20 mg PO TID PRN abdominal pain #20 tabs 03/13/23 [Rx Last Taken Unknown] hydrocodone-acetaminophen 5-325mg 5mg-325mg 1 tab PO Q6H PRN PRN Pain 3 days #10 TABLETS 03/13/23 [Rx Last Taken Unknown] promethazine 25 mg tablet 25 mg PO Q6H PRN nausea and vomiting #10 tabs 03/13/23 [Rx Last Taken Unknown] Allergy/AdvReac Type Severity Reaction Status Date / Time No Known Allergies Allergy Verified 03/12/23 22:57 Family History Other Diabetes Social History household members: none Smoking Status: Current every day smoker tobacco type: e-cigarettes substance use type: marijuana ROS ROS ED Constitutional Constitutional ED: Denies chills or fever(s) Eyes Eyes: Denies change in vision ENT ENT ED: Denies rhinorrhea or sore throat Cardiovascular Cardiovascular: Denies chest pain or palpitations Respiratory/Chest Respiratory/Chest: Denies cough or dyspnea Gastrointestinal Gastrointestinal: Reports abdominal pain, nausea and vomiting; Denies diarrhea Genitourinary Genitourinary ED: Denies dysuria Musculoskeletal Musculoskeletal: Denies back pain or extremity pain Integumentary Denies Abrasions or rash Neurologic Neurologic: Denies headache(s) or weakness Psychiatric Psychiatric: Denies anxiety or depression Allergic/Immunologic Allergic/Immunologic ED: Denies lip swelling or urticaria EXAM Physical Exam Const Vital Signs: 03/12/23 22:52 Temperature 98.1 F Temperature Source Temporal Pulse Rate 74 Respiratory Rate 15 Blood Pressure 165/90 H Blood Pressure Mean 115 Pulse Ox 97 Oxygen Delivery Method Room Air Positive well nourished and well developed General Appearance ED: well developed Eyes EOMs intact bilaterally Chest Wall inspection of chest normal and palpation of chest normal Resp normal respiratory effort and clear to auscultation bilaterally Cardio regular rate and regular rhythm GI GI Narrative: Diffuse abdominal tenderness to palpation. No guarding or rebound. Hypoactive bowel sounds. Extremity normal to inspection Neuro oriented x3 Psych Mood & Affect: anxious Skin no rashes or lesions noted MDM MDM MDM Narrative Medical decision making narrative: IV line established. Patient given morphine and Zofran. Labwork obtained to evaluate for leukocytosis, anemia, and electrolyte derangement. Given the degree of patient's pain a CTA of the abdomen pelvis obtained to evaluate for potential ischemic bowel. History & Record Review Discussion w/independent historian: Patient and Family Additional record(s) reviewed:: Prior inpatient record, Prior outpatient record, Prior ED visit and Prior labs Lab Data Attestation: I reviewed the patient's lab results. Labs: Laboratory Results - last 24 hr 03/12/23 03/13/23 23:45 03:10 WBC 11.9 H RBC 5.47 Hgb 16.1 Hct 45.6 MCV 83.4 MCH 29.4 MCHC 35.3 RDW Std Deviation 39.5 RDW Coeff of Meño 13.0 Plt Count 437 MPV 9.3 Immature Gran % (Auto) 0.500 Neut % (Auto) 57.7 Lymph % (Auto) 28.9 [place] % (Auto) 11.9 H Eos % (Auto) 0.3 Baso % (Auto) 0.7 Absolute Neuts (auto) 6.9 Absolute Lymphs (auto) 3.44 Nucleated RBC % 0 Sodium 138 Potassium 3.2 L Chloride 108 H Carbon Dioxide 17.0 L Anion Gap 13 BUN 15 Creatinine 1.24 Estim Creat Clear Calc 83.94 Est GFR (MDRD) Af Amer 86 Est GFR (MDRD) Non-Af 71 BUN/Creatinine Ratio 12.1 Glucose 176 H Lactic Acid 2.6 H* 1.1 Calcium 9.7 Total Bilirubin 1.10 H Direct Bilirubin 0.28 AST 22 ALT 44 Alkaline Phosphatase 62 Total Protein 8.3 H Albumin 4.1 Globulin 4.2 Lipase 47 Radiography Diagnostic Testing: Clinical Impression(s) from Imaging Studies Abdomen/Pelvis CTA 03/13/23 00:08 IMPRESSION: Normal CT angiogram of the abdomen and pelvis . Electronically Signed: Tristen Mcmahon MD at 1:37 EDT , Treatment and Re-Evaluation :: CBC was a white count 11.9 with normal differential. This is likely demargination from vomiting. Hemoglobin is 16.1. Chemistry studies reveal slightly low potassium at 3.2. Bicarb is 17. BUN is 15 and creatinine is 1.24. Glucose is 176. Initial lactic acid is 2.6. LFTs and lipase are unremarkable. CTA of the abdomen pelvis is unremarkable. Patient did receive a dose of Dilaudid along with Bentyl for continued abdominal pain. This significantly improved his pain. I did note that the lactic acid initially reported at 2.6 had been drawn about 50 minutes before it was received in the lab. Patient was hydrated here and symptoms controlled. Repeat lactic acid is obtained and is normal at 1.1. At this time patient will be discharged with prescription for [place], Phenergan, Bentyl. He has Zofran at home that he can use. He has been following up with Dr. Granados and will call the office for close follow-up. Return instructions given. Discharge Plan Triage Chief Complaint: Abd Pain ED Provider: Marie Wen Dx/Rx/DC Orders Clinical Impression: Abdominal pain, Vomiting Instructions: ED Vomiting (Adult), ED Abdominal Pain Unkn Cause Male... Prescriptions: New promethazine 25 mg tablet 25 mg PO Q6H PRN (Reason: nausea and vomiting) Qty: 10 0RF hydrocodone-acetaminophen 5-325 mg tablet 1 tab PO Q6H PRN PRN (Reason: Pain) 3 Days Qty: 10 0RF dicyclomine 20 mg tablet 20 mg PO TID PRN (Reason: abdominal pain) Qty: 20 0RF No Action dicyclomine 20 mg tablet 20 mg PO TID PRN (Reason: abdominal pain) Qty: 90 0RF tramadol 50 mg tablet 50 mg PO Q6H PRN (Reason: pain) Qty: 30 0RF ondansetron 4 mg tablet,disintegrating 4 mg PO Q6H PRN (Reason: nausea and vomiting) Qty: 10 0RF metoclopramide HCl [Reglan] 10 mg tablet 10 mg PO Q6H PRN (Reason: nausea and vomiting) Qty: 20 0RF lisinopril 40 mg tablet 40 mg PO DAILY Qty: 30 0RF omeprazole 20 mg capsule,delayed release(DR/EC) 20 mg PO DAILY Qty: 30 0RF buspirone 5 mg tablet 5 mg PO TID 30 Days Qty: 90 0RF Stand Alone Forms: ED Work / School Excuse Primary Care Provider: Care Physician,No Primary Referrals: Friend,Mendez, [Med Staff - Active Staff] - 1-2 Weeks Care Physician,No Primary [Primary Care Provider] - Disposition Disposition: Home, Self Care Discharge Date/Time: 03/13/23 05:05
[2023-03-13] MEDS: HYDROmorphone 0.5 MG/0.5 ML SYRINGE IV (04:14)
[2023-03-13] MEDS: Pantoprazole Sodium 40 MG in 0.9% Normal Saline (100mL MB+) 100 ML 330 MG IV (04:16)
[2023-03-13 04:35] LABS: Reflex Lactate? Y
== END 2023-03-13 05:05 | disposition home or self-care (01) ==
PROVIDERS: Emergency Provider Emergency Medicine; Visit Provider Emergency Medicine
DX: R10.9 Unspecified abdominal pain (principal); R11.10 Vomiting, unspecified; I10 Essential (primary) hypertension; F17.290 Nicotine dependence, other tobacco product, uncomplicated; Z79.899 Other long term (current) drug therapy
CPT/HCPCS: 74174; 80048; 80076; 83605; 83690; 85025; 96361; 96365; 96372; 96375; 96376; 99282; J7030; J7050; Q9967; A4216; J2405

== ENCOUNTER 2023-03-15 04:05 | Emergency (ER) | payer SELFPAY ==
[2023-03-15 04:07] VITALS: BP 170/101; PULSE 77; RESP 16; TEMP 36.1; O2SAT 99; BMI 32.3
--- NOTE | 2023-03-15 04:20 | EDS_ITS ---
HPI HPI - GI History of Present Illness Chief Complaint: Abd Pain Informant: patient Abdominal Pain/Flank Pain Onset: Days (Several) Context: Gradual Onset Timing: Continuous Quality: - (Pain and bloating) Location: Diffuse Current Severity: Severe Maximum Severity: Severe Worsened by: Food Relieved by: Nothing Nausea/Vomiting/Emesis GI Symptom: Positive for Nausea and Vomiting Quality: Positive for Nonbilious; Negative for Blood streaks, Coffee ground or Hematemesis Diarrhea/Melena/Hematochezia GI Symptom: Positive for - (Small amount, last bowel movement this morning) Stool Quality: Positive for Mucous; Negative for Black or BRB per rectum Associated Symptoms Associated Symptoms: Negative for Dysuria, Frequency or Hematuria Narrative Narrative: Patient with a history of chronically recurring abdominal pain, he was seen here 2 days ago for similar pain, he states it is continued, worsened, and become more diffuse rather than just upper in my stomach. Feels swollen/bloated. Some vomiting. Having bowel movements with some mucus in it. Has seen GI Dr. Granados, scheduled for some more testing. [facility] Medical History Hypertension Intractable nausea and vomiting Home Medications lisinopril 40 mg tablet 40 mg PO DAILY #30 tabs 10/02/21 [Rx Last Taken Unknown] dicyclomine 20 mg tablet 20 mg PO TID PRN abdominal pain #90 tabs 01/10/23 [Rx Last Taken Unknown] ondansetron 4 mg disintegrating tablet 4 mg PO Q6H PRN nausea and vomiting #10 tabs 01/10/23 [Rx Last Taken Unknown] buspirone 5 mg tablet 5 mg PO TID 30 days #90 tabs 03/06/23 [Rx Last Taken Unknown] metoclopramide HCl 10 mg tablet 10 mg PO Q6H PRN nausea and vomiting #14 tabs 03/15/23 [Rx Last Taken Unknown] Allergy/AdvReac Type Severity Reaction Status Date / Time No Known Allergies Allergy Verified 03/15/23 04:05 Family History Other Diabetes Social History household members: none Smoking Status: Current every day smoker tobacco type: e-cigarettes substance use type: marijuana ROS ROS ED Constitutional Constitutional ED: Denies chills or fever(s) Eyes Eyes: Denies change in vision or diplopia ENT ENT ED: Denies rhinorrhea or sore throat Cardiovascular Cardiovascular: Denies chest pain or palpitations Respiratory/Chest Respiratory/Chest: Denies cough or dyspnea Gastrointestinal Gastrointestinal: Reports abdominal pain, nausea and vomiting; Denies diarrhea or melena Genitourinary Genitourinary ED: Denies dysuria or hematuria Musculoskeletal Musculoskeletal: Denies back pain or neck pain Integumentary Denies abscess or rash Neurologic Neurologic: Denies headache(s), paresthesias or weakness Psychiatric Psychiatric: Denies anxiety or suicidal thoughts EXAM Physical Exam Const Vital Signs: 03/15/23 04:07 Temperature 97 F L Temperature Source Temporal Pulse Rate 77 Respiratory Rate 16 Blood Pressure 170/101 H Blood Pressure Mean 124 Pulse Ox 99 Positive well nourished and well developed General Appearance ED: well developed and NAD HEENT Reports moist mucous membranes normocephalic and atraumatic Eyes PERRL and EOMs intact bilaterally Neck full ROM and supple Resp normal respiratory effort and clear to auscultation bilaterally Cardio regular rate, regular rhythm and no murmurs GI non-distended GI Narrative: Diffuse abdominal tenderness. No objective distention. Some voluntary guarding, no rebound tenderness. Auscultation: normoactive bowel sounds Palpation: soft Back/Spine no CVA tenderness General Back: other FROM Extremity normal to inspection General Extremety ED: Negative for edema, pulses abnormal or tenderness General Extremity: Negative for edema or pulses abnormal Neuro oriented x3, CN's II-XII intact bilaterally and no sensory deficits noted Sensorium / Orientation: awake and alert Motor Exam: strength 5/5 throughout Psych Mood & Affect: anxious and tearful Skin no rashes or lesions noted and no wounds MDM MDM MDM Narrative Medical decision making narrative: Including the CT angiogram that he had 2 days ago that was normal, patient has had 5 CT scans of the abdomen/pelvis that have all been unremarkable in the past 2 years. Couple days ago, his labs were unremarkable except for hypokalemia and a transient lactic acidosis. I do not think the majority of his work-up needs to be repeated emergently. I did repeat his chemistries in order to evaluate his hydration status/potassium level. I do not think the testing that I have available here in emergency department such as labs and CT scan other than the above are indicated or needed given the work-up he has had so far. This clearly is some type of functional intestinal pain, the differential for the etiology of that is wide, and as I discussed with the patient we would focus on getting him feeling better. He does have a history of marijuana use as well, so cannabis hyperemesis syndrome is in the differential, as is cyclic vomiting. He was given IV fluids in addition to Zofran, Thorazine, Levsin, and morphine. This helped a little, and was followed with Kavita Sabillon simethicone. He admitted later that his pain was not nearly as bad as when he came in. I advised him that it would be unrealistic for us to make him asymptomatic here tonight and he understood. At this time, I recommend liquid diet for the next 24 hours least, and then advance as tolerated with an anti-inflammatory diet is much as possible until he can follow-up with his GI doctor. He was given a printout of a webpage specifically regarding an anti-inflammatory diet and appropriate substitution for typical foods. History & Record Review Additional record(s) reviewed:: Prior ED visit and Prior labs (And imaging) Lab Data Attestation: I reviewed the patient's lab results. Labs: Laboratory Results - last 24 hr 03/15/23 04:20 Sodium 135 L Potassium 3.3 L Chloride 104 Carbon Dioxide 21.0 Anion Gap 10 BUN 12 Creatinine 1.17 Estim Creat Clear Calc 88.96 Est GFR (MDRD) Af Amer 92 Est GFR (MDRD) Non-Af 76 BUN/Creatinine Ratio 10.3 Glucose 158 H Calcium 9.4 Discharge Plan Triage Chief Complaint: Abd Pain ED Provider: River Booker Dx/Rx/DC Orders Clinical Impression: Diffuse abdominal pain, Abdominal bloating Instructions: Abdominal Pain Prescriptions: New metoclopramide HCl [metoclopramide HCl] 10 mg tablet 10 mg PO Q6H PRN (Reason: nausea and vomiting) Qty: 14 0RF No Action dicyclomine 20 mg tablet 20 mg PO TID PRN (Reason: abdominal pain) Qty: 90 0RF ondansetron 4 mg tablet,disintegrating 4 mg PO Q6H PRN (Reason: nausea and vomiting) Qty: 10 0RF lisinopril 40 mg tablet 40 mg PO DAILY Qty: 30 0RF buspirone 5 mg tablet 5 mg PO TID 30 Days Qty: 90 0RF Primary Care Provider: Care Physician,No Primary Referrals: Friend,Mendez, [Med Staff - Active Staff] - As soon as possible Activity Restrictions/Additional Instructions: See attached instructions for anti-inflammatory diets, there are multiple websites if you want to look for different one, this one is from [facility]. Disposition Disposition: Home, Self Care
[2023-03-15] MEDS: Hyoscyamine Sulfate 0.125 MG Tablet 0.25 MG SL (04:29)
[2023-03-15] MEDS: Morphine 4 MG/ML Syringe IV (04:30)
[2023-03-15] MEDS: Ondansetron 4 MG/2 ML Vial IV (04:30)
[2023-03-15] MEDS: 0.9% Normal Saline (1000mL) 1,000 ML 999 ML IV (04:30)
[2023-03-15 04:53] LABS: Anion Gap 10 (5-15); BUN 12 mg/dL (7-18); BUN/Creat Ratio 10.3 RATIO (10-20); Calcium,Total 9.4 mg/dL (8.5-10.1); Chloride 104 mmol/L (98-107); Creatinine, Serum 1.17 mg/dL (0.70-1.30); EST Glomerular Filtration Rate 76 mL/min (>60); Est Glom Filt Rate - Afr Amer 92 mL/min (>60); Estimated Creatinine Clearance 88.96 ml/min; Glucose 158 mg/dL (74-106); Potassium 3.3 mmol/L (3.5-5.1); Sodium Level 135 mmol/L (136-145)
[2023-03-15] MEDS: ChlorproMAZINE 50 MG/2 ML Ampul 25 MG IV (05:19)
[2023-03-15] MEDS: SimETHICONE 80 MG Chewable Tablet 160 MG PO (05:21)
[2023-03-15] MEDS: Metoclopramide 10 MG/2 ML Vial 5 MG IV (05:24)
[2023-03-15] MEDS: Ketorolac 15 MG/ML Vial 30 MG IV (05:25)
[2023-03-15] MEDS: DiphenhydrAMINE 50 MG/ML Syringe 25 MG IV (05:25)
[2023-03-15 06:09] VITALS: PULSE 85; RESP 16; O2SAT 97
== END 2023-03-15 06:19 | disposition home or self-care (01) ==
PROVIDERS: Emergency Provider Emergency Medicine; Visit Provider Emergency Medicine
DX: R10.84 Generalized abdominal pain (principal); R14.0 Abdominal distension (gaseous); I10 Essential (primary) hypertension; F17.290 Nicotine dependence, other tobacco product, uncomplicated; F12.90 Cannabis use, unspecified, uncomplicated; Z79.899 Other long term (current) drug therapy
CPT/HCPCS: 80048; 96361; 96374; 96375; 99283; J7030; A4216; J2405

== ENCOUNTER → 2023-03-17 | Outpatient (CLI) | payer SELFPAY ==
[2023-03-17 17:09] LABS: Amylase 45 U/L (25-115); Lipase 107 U/L (13-75)
[2023-03-17 17:11] LABS: Amphetamine Urine VISTA NEGATIVE (<1000 ng/mL); Barbiturate Urine VISTA NEGATIVE (< 200 ng/mL); Benzodiazepine Urine VISTA NEGATIVE (< 200 ng/mL); Cocaine Urine VISTA NEGATIVE (< 300 ng/mL); Ecstacy Urine VISTA NEGATIVE (< 500 ng/mL); Methadone Urine VISTA NEGATIVE (< 300 ng/mL); PCP Urine VISTA NEGATIVE (< 25 ng/mL); THC Urine VISTA POSITIVE (< 50 ng/mL); Vista UDS pH Range 5
== END | disposition home or self-care (01) ==
LOC: LAB 15:44
PROVIDERS: Referring Provider Internal Medicine Gastroenterology; Visit Provider Internal Medicine Gastroenterology
DX: R11.2 Nausea with vomiting, unspecified (principal); R10.9 Unspecified abdominal pain
CPT/HCPCS: 36415; 80307; 82150; 83690

== ENCOUNTER → 2023-03-18 | Outpatient (CLI) | payer SELFPAY ==
[2023-03-18 09:03] LABS: Erythrocyte Sedimentation Rate 3 mm/hr (0-20)
[2023-03-18 09:40] LABS: Vitamin B12 595 pg/mL (211-911)
[2023-03-18 09:46] LABS: Hemoglobin A1c 5.5 % (3.8-5.6)
[2023-03-18 10:02] LABS: Amylase 39 U/L (25-115); CPK Total, Creatine Kinase 87 U/L (39-308); CRP < 2.90 mg/L (0.0-3.0); Free T3 4.4 pg/mL (2.18-3.98); LDH 156 U/L (87-241); Lipase 80 U/L (13-75); Prolactin 6.2 ng/mL; Thyroid Stim Hormone (TSH) 1.32 uIU/mL (0.358-3.74)
[2023-03-21 04:07] LABS: Albumin 3.4 g/dL (2.9-4.4); Alpha-1-Globulins 0.2 g/dL (0.0-0.4); Alpha-2-Globulins 0.6 g/dL (0.4-1.0); Endomysial Antibody IgA Negative (Negative); Gamma Globulin 0.9 g/dL (0.4-1.8); Gastrin, Serum < 10 pg/mL (0-115); Immunoglobulin A 503 mg/dL (90-386); Immunoglobulin G 926 mg/dL (603-1613); Immunoglobulin M 91 mg/dL (20-172); Myoglobin, Serum < 21 ng/mL (28-72); Myoglobin, Urine < 2 ng/mL (0-13); PROEL- TOTAL PROTEIN 6.2 g/dL (6.0-8.5); Serotonin, Serum 113 ng/mL (31-207); t-Transglutaminase IgA <2 U/mL (0-3)
== END | disposition home or self-care (01) ==
PROVIDERS: Referring Provider Internal Medicine Gastroenterology; Visit Provider Internal Medicine Gastroenterology
DX: R10.84 Generalized abdominal pain (principal); F12.288 Cannabis dependence with other cannabis-induced disorder
CPT/HCPCS: 36415; 82150; 82550; 82607; 82784; 82941; 83036; 83516; 83615; 83690; 83874; 84146; 84165; 84260; 84439; 84443; 84481; 85652; 86140; 86255; 86334

== ENCOUNTER 2024-01-05 12:03 | Emergency (ER) | payer SELFPAY ==
[2024-01-05 12:04] VITALS: BP 148/83; PULSE 63; RESP 18; TEMP 36.8; O2SAT 98; BMI 30.2
--- NOTE | 2024-01-05 12:24 | EKG12_ITS ---
Test Reason : ABD PAIN Blood Pressure : / mmHG Vent. Rate : 048 BPM Atrial Rate : 048 BPM P-R Int : 138 ms QRS Dur : 094 ms QT Int : 472 ms P-R-T Axes : 041 057 055 degrees QTc Int : 421 ms Sinus bradycardia with sinus arrhythmia Early repolarization Otherwise normal ECG Confirmed by CAR PAYNE, STEFAN ([id number]), movie editor ALEJANDRO CASTANON ([id number]) on 01/09/2024 9:46:52 AM Referred By: Confirmed By:CHILO YOON MD
--- NOTE | 2024-01-05 13:28 | ED.VIS.GI ---
HPI HPI - GI History of Present Illness Chief Complaint: Abd Pain Informant: patient and spouse/S.O. Narrative Narrative: Presents worsening epigastric abdominal pain today. Was seen 2 days ago at [place] [facility] with a workup report including CT scan. Patient is feeling better when he left. Symptoms returned when he got home. History of diagnosed cannabis hyperemesis syndrome reported last use a week ago. He states he started smoke marijuana year ago has been having symptoms however for 5 years per significant other. She is seeing local GI doctor Dr. Granados, has upper and lower endoscopies that were negative most recent 1 to 2 years ago. He is also explains that he has had a capsule endoscopy that was negative. And discussed what gastroenterology had concerns of, he states they are out loss. Denies any abdominal surgeries in the past. He does state only thing that helps is hot showers and he is in the shower until the hot water runs out. Prior similar symptoms: Yes PFSH PFSH Medical History Intractable nausea and vomiting Hypertension Home Medications ?Medication ?Instructions ?Recorded ?Last Taken ?Type sucralfate 1 gram tablet (Carafate) 1 g PO Q6H #60 tabs 01/05/24 Unknown Rx Allergy/AdvReac Type Severity Reaction Status Date / Time No Known Allergies Allergy Verified 01/05/24 12:08 Family History Other Diabetes Social History household members: none Smoking Status: Current every day smoker tobacco type: e-cigarettes substance use type: marijuana ROS ROS ED Constitutional Constitutional ED: Reports sweats; Denies chills or fever(s) Eyes Eyes: Denies change in vision ENT ENT ED: Denies dysphagia or sore throat Cardiovascular Cardiovascular: Denies chest pain, leg edema, palpitations or racing heartbeat Respiratory/Chest Respiratory/Chest: Denies cough, dyspnea or dyspnea on exertion Gastrointestinal Gastrointestinal: Reports abdominal pain and nausea; Denies diarrhea or vomiting Genitourinary Genitourinary ED: Denies dysuria, hematuria or urinary frequency Musculoskeletal Musculoskeletal: Denies back pain, extremity pain or neck pain Integumentary Denies rash or wounds Neurologic Neurologic: Denies headache(s), paresthesias or weakness EXAM Physical Exam Const Vital Signs: 01/05/24 12:04 01/05/24 14:03 Temperature 98.2 F Temperature Source Oral Pulse Rate 63 51 L Respiratory Rate 18 17 Blood Pressure 148/83 H Blood Pressure Mean 104 Pulse Ox 98 99 Oxygen Delivery Method Room Air Room Air Positive well nourished and well developed Constitutional Narrative: Uncomfortable sweaty, nontoxic. General Appearance ED: well developed HEENT Reports moist mucous membranes normocephalic and atraumatic Eyes EOMs intact bilaterally and conjunctivae normal General Eye ED: Yes normal appearance of both eyes Neck no lymphadenopathy and supple General: Negative for tenderness Chest Wall Chest: Negative for tenderness Resp normal respiratory effort and normal air movement Effort and Inspection: symmetric chest movement; Negative for respiratory distress Cardio regular rate, regular rhythm and no murmurs Peripheral Pulses: pulses 2+ throughout GI normal to inspection, nondistended, normoactive bowel sounds and non-tender Palpation: Negative for guarding or rebound tenderness present Back/Spine no CVA tenderness and no thoracic nor lumbar tenderness Extremity normal to inspection General Extremety ED: Negative for edema or tenderness General Extremity: Negative for edema Neuro oriented x3 and no sensory deficits noted Sensorium / Orientation: awake and alert Skin no rashes or lesions noted and no wounds MDM MDM MDM Narrative Medical decision making narrative: Interventions / MDM: Differential diagnosis: Diagnosis considered but do not suspect: N/A My EKG interpretation: N/A Imaging independently reviewed and interpreted by myself: N/A External documents reviewed: N/A Test considered but not ordered:N/A ED course: Sweating epigastric abdominal pain recurrent. Reports symptoms improved with hot showers. Cannabis history however stated last use a week ago. Abdominal labs ordered fluids, Zofran, Haldol and capsaicin cream ordered. 1440: Labs are all normal. Lipase normal. On reevaluation, he states he still does not feel well. He appears more comfortable. Concerned of his symptoms, discussed further workup can deform with imagings. Reported CT scan abdomen pelvis was performed. I discussed if any concerns we will do an angiogram to rule out any vascular abnormalities causing his symptoms. Risk and benefits with radiation exposure discussed. He wishes to pursue this. Treated with IV Pepcid. 1525: Nursing comes to me now stating patient does not want a CT scan. This was canceled. Will p.o. challenge. 1533: Initial reported to me patient wanted his IV out. He did not want an IV Pepcid. I returned to reevaluate the patient, however he left the department. Therefore patient eloped. I will send Carafate to his pharmacy as discussed during his reevaluation with his pantoprazole that was written by outside ED 2 days ago. Re-evaluation: stable Disposition discussed with patient/family/significant other: Case discussed with consulting clinician: N/A This note was generated with Voyat dictation software. It may contain incorrect words, spelling, and punctuation that were not noted in checking the note before signing. Lab Data Attestation: I reviewed the patient's lab results. Labs: Laboratory Results - last 24 hr 01/05/24 12:00 WBC 10.0 RBC 5.22 Hgb 15.5 Hct 45.0 MCV 86.2 MCH 29.7 MCHC 34.4 RDW Std Deviation 41.1 RDW Coeff of Meño 13.2 Plt Count 367 MPV 9.2 Immature Gran % (Auto) 0.400 Neut % (Auto) 55.4 Lymph % (Auto) 32.3 [place] % (Auto) 10.7 H Eos % (Auto) 0.4 Baso % (Auto) 0.8 Absolute Neuts (auto) 5.5 Absolute Lymphs (auto) 3.21 Nucleated RBC % 0 Sodium 139 Potassium 3.6 Chloride 109 H Carbon Dioxide 21.0 Anion Gap 9 BUN 19 H Creatinine 1.23 Estim Creat Clear Calc 95.25 Est GFR (MDRD) Af Amer 86 Est GFR (MDRD) Non-Af 71 BUN/Creatinine Ratio 15.4 Glucose 107 H Calcium 9.6 Total Bilirubin 1.00 AST 14 L ALT 35 Alkaline Phosphatase 70 Total Protein 8.2 Albumin 3.7 Globulin 4.5 H Albumin/Globulin Ratio 0.8 L Lipase 49 Discharge Plan Triage Chief Complaint: Abd Pain ED Provider: Best Carroll Dx/Rx/DC Orders Clinical Impression: Abdominal pain of unknown etiology, Nausea, History of cannabis dependence/abuse Prescriptions: New sucralfate [Carafate] 1 gram tablet 1 g PO Q6H Qty: 60 0RF Primary Care Provider: Care Physician,No Primary Referrals: Care Physician,No Primary [Primary Care Provider] - Print Language: Vietnamese Disposition Disposition: Elopement
[2024-01-05] MEDS: 0.9% Normal Saline (1000mL) 1,000 ML 999 ML IV (13:39)
[2024-01-05] MEDS: Haloperidol Lactate 5 MG/ML Vial 2 MG IV (13:39)
[2024-01-05] MEDS: Ondansetron 4 MG/2 ML Vial IV (13:39)
[2024-01-05 13:40] LABS: Absolute Lymphocyte Count 3.21 X10^3/uL (0.83-4.51); Absolute Neutrophil Count 5.5 X10^3/uL (2.0-7.7); Basophil# 0.08 X10^3/uL; Basophil% 0.8 % (0-1); Eosinophil# 0.04 X10^3/uL; Eosinophils% 0.4 % (0-5); Hemoglobin 15.5 g/dL (13.0-16.5); Lymphocyte # 3.21 X10^3/ul (0.83-4.51); Lymphocyte % 32.3 % (19-41); Mean Corp Hgb Conc 34.4 g/dL (32-36); Mean Corpuscular Hgb 29.7 pg (27.0-32.0); Mean Corpuscular Volume 86.2 fL (80-94); Mean Platelet Vol. 9.2 fl (6.2-12.0); Monocyte# 1.06 X10^3/uL; Monocyte% 10.7 % (0-10); NRBC Flagged by Analyzer 0 % (0-5); Neutrophil # 5.52 X10^3/uL (2.7-7.7); Neutrophil % 55.4 % (47-70); Platelet Count 367 K/mm3 (150-450); RBC Distribution Width CV 13.2 % (11.6-14.6); RBC Distribution Width SD 41.1 fl (35.1-43.9); Red Blood Count 5.22 M/mm3 (4.6-6.2)
[2024-01-05] MEDS: Capsaicin 0.025% 1 APPLIC Tube TOPICAL (13:40)
[2024-01-05 13:52] LABS: ALB/GLOB Ratio 0.8 RATIO (0.9-2.4); AST(SGOT) 14 U/L (15-37); Alanine Aminotransfer ALT/SGPT 35 U/L (16-61); Albumin, Serum 3.7 g/dL (3.2-5.0); Alkaline Phosphatase 70 U/L (45-117); Anion Gap 9 (5-15); BUN 19 mg/dL (7-18); BUN/Creat Ratio 15.4 RATIO (10-20); Calcium,Total 9.6 mg/dL (8.5-10.1); Chloride 109 mmol/L (98-107); Creatinine, Serum 1.23 mg/dL (0.70-1.30); EST Glomerular Filtration Rate 71 mL/min (>60); Est Glom Filt Rate - Afr Amer 86 mL/min (>60); Estimated Creatinine Clearance 95.25 ml/min; Globulin 4.5 g/dL (2.2-4.2); Glucose 107 mg/dL (74-106); Lipase 49 U/L (13-75); Potassium 3.6 mmol/L (3.5-5.1); Protein, Total 8.2 g/dL (6.4-8.2); Sodium Level 139 mmol/L (136-145)
[2024-01-05 14:03] VITALS: PULSE 51; RESP 17; O2SAT 99
--- NOTE | 2024-01-05 15:28 | ED.RN ---
PATIENT STATES HE DOES NOT WANT THE CT SCAN AND WOULD LIKE TO SIGN HIMSELF OUT. RN ASKED IF THERE WAS A REASON FOR DECLINING THE CT SCAN. PATIENT STATES HE DOES NOT WANT THE RADIATION. IV REMOVED AND WATER, SALTINES GIVEN PER ED DR BINGHAM
== END 2024-01-05 15:44 | disposition left against medical advice (07) ==
PROVIDERS: Emergency Provider Emergency Medicine; Visit Provider Emergency Medicine
DX: R10.13 Epigastric pain (principal); F12.20 Cannabis dependence, uncomplicated; R11.0 Nausea; F17.290 Nicotine dependence, other tobacco product, uncomplicated
CPT/HCPCS: 80053; 83690; 85025; 93005; 96361; 96374; 96375; 99283; J7030; J2405; J3490